=== PATIENT | male | born 1955 | race Caucasian/White ===

== ENCOUNTER 2017-12-15 20:35 | Inpatient (IN) | payer BC, OTHER ==
[~2017-12-15] VITALS: Ht 185.4 cm; Wt 115.0 kg
[~2017-12-15 20:35] MED LIST: ANTI25TA2 PO; CHOLESTEROL MED; METO100T9 PO; ST JTAB PO
[2017-12-15 20:38] VITALS: BP 167/80; PULSE 89; RESP 18; TEMP 100.2; O2SAT 94
--- NOTE | 2017-12-15 21:12 | PD ---
HPI Chief Complaint: Fever Time Seen by Provider: 20:53 Travel History International Travel<30 days: No Contact w/Intl Traveler<30days: No Traveled to known affect area: No History of Present Illness HPI 62-year-old male complains of fever, sore throat, productive cough, dysuria, right flank pain . Patient states that the sore throat started about 10 days ago. Patient started having fever intermittent since then. Patient states that he started having productive cough and chest wall pain with coughing for the past few days. Patient states that he vomited today. Patient also states that he has dysuria for the past 10 days. Patient states that he has persistent right flank pain right upper quadrant abdominal pain for the past 10 days. Patient has history kidney stone in the past. Patient denies any abdominal surgery in the past. Patient has history of hypertension and diabetes. Patient is a non-smoker. PFSH Past Medical History Cardiovascular Problems: Yes ([place]) High Cholesterol: Yes Hypertension: Yes Kidney Stones: Yes ?: Not Past Surgical History Other Surgery: Yes (KIDNEY STONE) Social History Alcohol Use: Yes (RARE) Tobacco Use: Yes (RARE) Substance Use: No Allergies-Medications (Allergen,Severity, Reaction): Coded Allergies: penicillin G (Unverified Adverse Reaction, Mild, RASH, 12/15/17) Reported Meds & Prescriptions Reported Meds & Active Scripts Active Reported Simvastatin 40 Mg Tab 40 Mg PO DAILY Metoprolol Tartrate 100 Mg Tab 100 Mg PO BID Hydrochlorothiazide 25 Mg Tab 25 Mg PO DAILY Meclizine (Meclizine HCl) 25 Mg Tab 25 Mg PO TID PRN Metformin (Metformin HCl) 500 Mg Tab 500 Mg PO TIDPC Farxiga (Dapagliflozin) 5 Mg Tab 5 Mg PO DAILY Review of Systems General / Constitutional: No: Fever Eyes: No: Visual changes HENT: Positive: Sore Throat, No: Headaches Cardiovascular: No: Chest Pain or Discomfort Respiratory: Positive: Cough, No: Shortness of Breath Gastrointestinal: Positive: Vomiting, Abdominal Pain Genitourinary: Positive: Dysuria Musculoskeletal: No: Pain Skin: No Rash Neurologic: No: Weakness Psychiatric: No: Depression Endocrine: No: Polydipsia Hematologic/Lymphatic: No: Easy Bruising Physical Exam Narrative GENERAL: Well-nourished, well-developed patient. SKIN: Focused skin assessment warm/dry. HEAD: Normocephalic. EYES: No scleral icterus. No injection or drainage. NECK: Supple, trachea midline. No JVD or lymphadenopathy. CARDIOVASCULAR: Regular rate and rhythm without murmurs, gallops, or rubs. RESPIRATORY: Breath sounds equal bilaterally. No accessory muscle use. GASTROINTESTINAL: Abdomen soft, nondistended. Patient has moderate tenderness on palpation right flank area and right mid abdomen area. No rebound tenderness. No mass. MUSCULOSKELETAL: No cyanosis, or edema. BACK: Nontender without obvious deformity. No CVA tenderness. Neurologic exam normal. Data Data Last Documented VS Vital Signs Date Time Temp Pulse Resp B/P (MAP) Pulse Ox O2 Delivery O2 Flow Rate FiO2 12/15/17 21:40 80 16 122/64 (83) 94 Room Air 12/15/17 20:38 100.2 Orders Orders Complete Blood Count With Diff (12/15/17 21:00) Comprehensive Metabolic Panel (12/15/17 21:00) Prothrombin Time / Inr (Pt) (12/15/17:00) Act Partial Throm Time (Ptt) (12/15/17:00) Urinalysis - C+S If Indicated (12/15/17 21:00) Influenzae A/B Antigen (12/15/17 21:00) Chest, Single Ap (12/15/17:00) Ct Abd/Pel W/O Iv Contrast (12/15/17 21:00) Iv Access Insert/Monitor (12/15/17 21:00) Ecg Monitoring (12/15/17 21:00) Oximetry (12/15/17 21:00) Sodium Chlor 0.9% 1000 Ml Inj (Ns 1000 M (12/15/17 21:15) Ketorolac Inj (Toradol Inj) (12/15/17 21:15) Group A Rapid Strep Screen (12/15/17 22:27) Potassium Chloride (Kcl) (12/15/17 23:00) Potassium Chlor 20 Meq Premix (Kcl 20 Me (12/15/17 23:00) Strep Culture (Group A) (12/15/17 22:25) Ceftriaxone Inj (Rocephin Inj) (12/16/17 00:15) Azithromycin Inj (Zithromax Inj) (12/16/17 00:15) Ceftriaxone Inj (Rocephin Inj) (12/16/17 23:00) Bedside Glucose KELSIE.CSUGAR (12/16/17 00:24) Blood Glucose Goal (Criteria) (12/16/17 00:24) Hypoglycemia 70 Mg/Dl Or < (12/16/17 00:24) Notify Dr: Other (12/16/17 00:24) Dextrose 50% In Pernell (Vial) Inj (D50w (Vi (12/16/17 00:30) Glucagon Inj (Glucagon Inj) (12/16/17 00:30) Insulin Aspart Supplemtl Scale (Novolog (12/16/17 08:00) Admit To Inpatient (12/16/17 ) Vital Signs (Adult) Q4H (12/16/17 00:24) Activity Oob Ad Kaley (12/16/17 00:24) Staff Nuclear Weapons Officer / Telemetry .CONTINUOUS (12/16/17 00:24) Intake + Output KELSIE.QSHIFT (12/16/17 00:24) Diet 1800 Ada Cons Carb (12/16/17 Breakfast) Sodium Chlor 0.9% 1000 Ml Inj (Ns 1000 M (12/16/17 00:24) Sodium Chloride 0.9% Flush (Ns Flush) (12/16/17 00:30) Sodium Chloride 0.9% Flush (Ns Flush) (12/16/17 09:00) Ondansetron Inj (Zofran Inj) (12/16/17 00:30) Comprehensive Metabolic Panel (12/17/17 06:00) Complete Blood Count With Diff (12/17/17 06:00) Scd Bilateral/Knee High KELSIE.BID (12/16/17 00:24) Girish Bilateral/Knee High KELSIE.QSHIFT (12/16/17 00:26) Acetaminophen (Tylenol) (12/16/17 00:30) Acetamin-Hydrocod 325-5 Mg ([place] 5-325 (12/16/17 00:30) Acetamin-Hydrocod 325-10 Mg ([place] 10-32 (12/16/17 00:30) Docusate Sodium-Senna (Pratibha-Colace) (12/16/17 09:00) Magnesium Hydroxide Liq (Milk Of Magnesi (12/16/17 00:30) Sennosides (Senokot) (12/16/17 00:30) Bisacodyl Supp (Dulcolax Supp) (12/16/17 00:30) Lactulose Liq (Lactulose Liq) (12/16/17 00:30) Inpatient Certification (12/16/17 ) Metoprolol Tartrate (Lopressor) (12/16/17 09:00) (Nf) Simvastatin (12/16/17 09:00) Admit Order (Ed Use Only) (12/16/17 00:29) Labs Laboratory Tests Test 12/15/17 21:30 12/15/17 21:40 Urine Color YELLOW Urine Turbidity CLEAR Urine pH 5.5 Urine Specific [place] 1.010 Urine Protein 30 mg/dL Urine Glucose (UA) 1000 OR GREATER mg/dL Urine Ketones 15 mg/dL Urine Occult Blood SMALL Urine Nitrite NEG Urine Bilirubin NEG Urine Urobilinogen 0.2 MG/DL Urine Leukocyte Esterase NEG Urine WBC 0-2 /hpf Urine Squamous Epithelial Cells 0-5 /hpf Microscopic Urinalysis Comment CULT NOT INDICATED White Blood Count 24.1 TH/MM3 Red Blood Count 4.70 MIL/MM3 Hemoglobin 14.3 GM/DL Hematocrit 42.1 % Mean Corpuscular Volume 89.6 FL Mean Corpuscular Hemoglobin 30.4 PG Mean Corpuscular Hemoglobin Concent 33.9 % Red Cell Distribution Width 12.1 % Platelet Count 173 TH/MM3 Mean Platelet Volume 10.0 FL Neutrophils (%) (Auto) 84.3 % Lymphocytes (%) (Auto) 7.5 % Monocytes (%) (Auto) 7.0 % Eosinophils (%) (Auto) 0.1 % Basophils (%) (Auto) 1.1 % Neutrophils # (Auto) 20.3 TH/MM3 Lymphocytes # (Auto) 1.8 TH/MM3 Monocytes # (Auto) 1.7 TH/MM3 Eosinophils # (Auto) 0.0 TH/MM3 Basophils # (Auto) 0.3 TH/MM3 CBC Comment DIFF FINAL Differential Comment Prothrombin Time 10.7 SEC Prothromb Time International Ratio 1.1 RATIO Activated Partial Thromboplast Time 25.2 SEC Blood Urea Nitrogen 15 MG/DL Creatinine 1.20 MG/DL Random Glucose 264 MG/DL Total Protein 7.8 GM/DL Albumin 3.5 GM/DL Calcium Level 9.3 MG/DL Alkaline Phosphatase 63 U/L Aspartate Amino Transf (AST/SGOT) 17 U/L Alanine Aminotransferase (ALT/SGPT) 36 U/L Total Bilirubin 1.6 MG/DL Sodium Level 135 MEQ/L Potassium Level 2.7 MEQ/L Chloride Level 100 MEQ/L Carbon Dioxide Level 28.8 MEQ/L Anion Gap 6 MEQ/L Estimat Glomerular Filtration Rate 61 ML/MIN MDM Medical Decision Making Medical Screen Exam Complete: Yes Emergency Medical Condition: Yes Interpretation(s) 21:[address] scan abdomen pelvis shows pyelonephritis versus renal stone passage right kidney. Chest x-ray shows no acute consolidation. UA is positive for glucose. 12:09 AM. CBC WBC 24.1. 84 neutrophil. Potassium 2.7. Sodium 135. GFR 61. Glucose 264. Total bili 1.6. Differential Diagnosis Differential diagnoses including viral syndrome, bronchitis, pneumonia, nephrolithiasis, pyelonephritis, colitis, cholecystitis, UTI. Narrative Course 62-year-old male with sore throat, coughing, right flank pain, dysuria. Normal saline solution 1 L IV bolus. Toradol 30 mg IV. Rocephin 1 g IV. Zithromax 5 mg IV. KCl 40 mEq p.o. given. KCl 20 mEq IV given. Diagnosis Primary Impression: Pyelonephritis Additional Impressions: Bronchitis Hypokalemia Admitting Information Admitting Physician Requests: Admit Jamarcus Toledo MD December 15, 2017 21:12
[2017-12-15] MEDS ORDERED: KETOROLAC TROMETHAMINE 30 MG/ML (IVP) VIAL IV PUSH ONE (21:15)
[2017-12-15] MEDS ORDERED: SODIUM CHLOR 0.9% 1000 ML INJ 1,000 ML IV ONE (21:15)
--- NOTE | 2017-12-15 21:32 | RADRPT ---
EXAM DATE/TIME: 12/15/2017 21:08 [facility] COMPARISON: No previous studies available for comparison. INDICATIONS : Right flank pain. ORAL CONTRAST: No oral contrast ingested. RADIATION DOSE: 26.03 CTDIvol (mGy) ; High dose protocol; Patient body habitus MEDICAL HISTORY : Renal calculi. Hypertension. SURGICAL HISTORY : None. ENCOUNTER: Initial ACUITY: 2 days PAIN SCALE: 7/10 LOCATION: Right flank TECHNIQUE: Volumetric scanning of the abdomen and pelvis was performed. Using automated exposure control and ad justment of the mA and/or kV according to patient size, radiation dose was kept as low as reasonably achievable to obtain optimal diagnostic quality images. DICOM format image data is available electro nically for review and comparison. FINDINGS: No acute findings in the lower, spleen, adrenals or pancreas. No calcified gallstones. Bilateral circumscribed renal lesions are most characteristic of renal cysts. No hydronephrosis or ev idence for obstructive uropathy. There is some stranding around the kidneys bilaterally, but worse on the right side at the lower pole. Cannot exclude inflammatory change, possibly pyelonephritis. No pelvic masses or free fluid. Colonic diverticulosis without diverticulitis. CONCLUSION: 1. Questionable inflammatory or edematous changes around the lower pole right kidney. Differential di agnosis includes pyelonephritis or recent stone passage. No renal calculi or obstructive uropathy. 2. Colonic diverticulosis. Vahid Ballard MD on December 15, 2017 at 21:22 Board Certified Radiologist. This report was verified electronically.
[2017-12-15 21:40] VITALS: BP 122/64; PULSE 80; RESP 16; O2SAT 94
--- NOTE | 2017-12-15 21:42 | RADRPT ---
EXAM DATE/TIME: 12/15/2017 21:27 [facility] COMPARISON: No previous studies available for comparison. INDICATIONS : Cough. MEDICAL HISTORY : Renal calculi. Hypertension SURGICAL HISTORY : None. ENCOUNTER: Initial ACUITY: 1 day PAIN SCORE: 0/10 LOCATION: Bilateral chest FINDINGS: A single view of the chest demonstrates the lungs to be symmetrically aerated without evidence of mas s, infiltrate or effusion. The cardiomediastinal contours are unremarkable. Osseous structures are intact. CONCLUSION: No acute disease. Vahid Ballard MD on December 15, 2017 at 21:39 Board Certified Radiologist. This report was verified electronically.
[2017-12-15 21:48] LABS: BILIRUBIN, URINE NEG (NEG); BLOOD, URINE SMALL (NEG); GLUCOSE,URINE 1000 OR GREATER mg/dL (NEG); KETONE, URINE 15 mg/dL (NEG); NITRITE,URINE NEG (NEG); PH, URINE 5.5 (5.0-8.5); URINE COLOR YELLOW (YELLW/STRAW); URINE LEUKOCYTE ESTERASE NEG (NEG)
[2017-12-15] MEDS ORDERED: METO100T PO (21:57)
[2017-12-15] MEDS ORDERED: HYDR25TA5 PO (21:57)
[2017-12-15] MEDS ORDERED: DAPA1TAB PO (21:57)
[2017-12-15] MEDS ORDERED: MECL-62 PO (21:57)
[2017-12-15] MEDS ORDERED: METF500T PO (21:57)
[2017-12-15] MEDS ORDERED: SIMV40TA PO (21:57)
[2017-12-15 22:01] LABS: AUTOMATED NEUTROPHIL # 20.3 TH/MM3 (1.8-7.7); BASOPHIL # 0.3 TH/MM3 (0-0.2); BASOPHIL % 1.1 % (0.0-2.0); EOSINOPHIL % 0.1 % (0.0-4.0); HEMATOCRIT 42.1 % (39.0-51.0); HEMOGLOBIN 14.3 GM/DL (13.0-17.0); LYMPH % 7.5 % (9.0-44.0); LYMPHOCYTE # 1.8 TH/MM3 (1.0-4.8); MEAN CELL VOLUME 89.6 FL (80.0-100.0); MEAN CORPUSCULAR HEMOGLOBIN 30.4 PG (27.0-34.0); MEAN CORPUSCULAR HGB CONC 33.9 % (32.0-36.0); MONOCYTE # 1.7 TH/MM3 (0-0.9); NEUT % 84.3 % (16.0-70.0); PLATELET COUNT 173 TH/MM3 (150-450); RED CELL DISTRIBUTION WIDTH 12.1 % (11.6-17.2); WHITE BLOOD COUNT 24.1 TH/MM3 (4.0-11.0)
[2017-12-15 22:03] LABS: SQUAMOUS EPITHELIAL CELL URINE 0-5 /hpf (0-5); WBC, URINE 0-2 /hpf (0-5)
[2017-12-15 22:40] VITALS: BP 129/65; PULSE 76; RESP 16; O2SAT 94
[2017-12-15 22:43] LABS: ALBUMIN 3.5 GM/DL (3.4-5.0); ALKALINE PHOSPHATASE 63 U/L (45-117); ALT (GPT) 36 U/L (12-78); AST (GOT) 17 U/L (15-37); BICARBONATE 28.8 MEQ/L (21.0-32.0); BLOOD UREA NITROGEN 15 MG/DL (7-18); CALCIUM 9.3 MG/DL (8.5-10.1); CHLORIDE 100 MEQ/L (98-107); GLOMERULAR FILTRATION RATE 61 ML/MIN (>89); GLUCOSE,RANDOM 264 MG/DL (74-106); SODIUM (NA) 135 MEQ/L (136-145); TOTAL BILIRUBIN ADULT 1.6 MG/DL (0.2-1.0); TOTAL PROTEIN 7.8 GM/DL (6.4-8.2)
[2017-12-15] MEDS ORDERED: POTASSIUM CHLORIDE 20 MEQ CONTROLLED RELEASE TAB PO ONE (23:00)
[2017-12-15] MEDS ORDERED: POTASSIUM CHLOR 20 MEQ PREMIX 100 ML IV ONE (23:00)
[2017-12-15 23:12] LABS: INTERNATIONAL NORMALIZED RATIO 1.1 RATIO; PROTHROMBIN TIME - PATIENT 10.7 SEC (9.8-11.6)
[2017-12-15 23:15] VITALS: BP 121/63; PULSE 78; RESP 16; O2SAT 95
[2017-12-16] VITALS (12 sets, daily range): BP systolic 114–155; BP diastolic 52–98; PULSE 76–130; RESP 14–20; TEMP 98.5–100.7; O2SAT 92–99
[2017-12-16] MEDS ORDERED: AZITHROMYCIN INJ 500 MG in SODIUM CHLOR 0.9% 250 ML INJ 250 ML IV ONE (00:15)
[2017-12-16] MEDS ORDERED: cefTRIAXone INJ 1,000 MG in SODIUM CHLORIDE 0.9% INJ 100 ML IV ONE (00:15)
[2017-12-16] MEDS ORDERED: LACTULOSE SYRUP 20 GM/30 ML CUP PO PRN (00:30)
[2017-12-16] MEDS ORDERED: GLUCAGON 1 MG/ML VIAL OTHER PRN (00:30)
[2017-12-16] MEDS ORDERED: MAGNESIUM HYDROXIDE SUSP 30 ML CUP PO PRN (00:30)
[2017-12-16] MEDS ORDERED: SENNOSIDES 8.6 MG TAB PO PRN (00:30)
[2017-12-16] MEDS ORDERED: BISACODYL 10 MG SUPP RECTAL PRN (00:30)
[2017-12-16] MEDS ORDERED: ACETAMINOPHEN/HYDROcodone 325 MG/10 MG TAB PO PRN (00:30)
[2017-12-16] MEDS ORDERED: ONDANSETRON HCL 4 MG/2 ML VIAL IVP PRN (00:30)
[2017-12-16] MEDS ORDERED: SODIUM CHLORIDE 0.9% FLUSH 10 ML FLUSH IV FLUSH PRN (00:30)
[2017-12-16] MEDS ORDERED: DEXTROSE 50% IN WATER 50 ML VIAL(D50) IV PUSH PRN (00:30)
[2017-12-16] MEDS ORDERED: ACETAMINOPHEN 325 MG TAB PO PRN (00:30)
[2017-12-16] MEDS: SODIUM CHLOR 0.9% 1000 ML INJ 1,000 ML IV SCH ×3 (03:03→16:15)
[2017-12-16] MEDS ORDERED: METOPROLOL TARTRATE 100 MG TAB PO SCH ×3 (06:08→09:00)
[2017-12-16] MEDS: METOPROLOL TARTRATE 100 MG TAB PO SCH ×2 (06:41→17:24)
--- NOTE | 2017-12-16 07:57 | HHI.HP ---
[facility] Michael Swift MD Admission Diagnosis Right pyelonephritis. Bronchitis. Hypokalemia. Diagnoses: Travel History International Travel<30 Days: No Contact w/Intl Traveler <30 Da: No Traveled to Known Affected Are: No Sepsis Criteria SIRS Criteria (2 or more): Heart rate over 90, WBC > 10788, < 4000 or > 10% bands Sepsis Criteria (SIRS+source): Infect source susp/known History of Present Illness 62 year old male with DM, CAD, HLD, HTN, and history of nephrolithiasis presented to the ER for evaluation of sore throat, cough, and right flank pain. He states the sore throat and productive cough started about ten days ago and since then he has also had daily fevers and chills with Tmax 104 orally at home. Coughing is now associated with right chest wall pain but he denies any difficulty breathing or wheezing. He recently went on a cruise about two weeks ago and states there were many people on board with respiratory symptoms. As far as his right flank pain, he states it was associated with dysuria and hematuria but his symptoms completely resolved three days ago; he believes he may have passed a stone. He states he has had eight episodes of stones in the past some requiring extraction. His urologist is Dr. Sands. Other associated symptoms include abdominal pain from coughing, heart racing, diminished appetite, and one episode of vomiting yesterday. He reports from time to time he feels his heart racing and gets a little lightheaded and feels like he has to lay down. He follows with Dr. Hartley and his last stress test was about eight years ago. He has had a heart attack in the past but no cardiac intervention such as stents or bypass. He has never been diagnosed with atrial fibrillation. Review of Systems Constitutional: COMPLAINS OF: Fever, Chills, Change in appetite, DENIES: Dizziness Eyes: DENIES: Blurred vision Ears, nose, mouth, throat: COMPLAINS OF: Throat pain, DENIES: Nasal discharge, Oral lesions, Hoarseness, Ear Pain, Running Nose, Sinus Pain Respiratory: COMPLAINS OF: Cough, Sputum production, DENIES: Wheezing, Hemoptysis, Shortness of breath Cardiovascular: COMPLAINS OF: Chest pain, Palpitations, DENIES: Syncope, Lower Extremity Edema Gastrointestinal: COMPLAINS OF: Abdominal pain, Vomiting, DENIES: Black stools , Bloody stools, Diarrhea, Nausea Genitourinary: COMPLAINS OF: Hematuria, Dysuria Musculoskeletal: DENIES: Joint pain, Muscle aches Integumentary: DENIES: Rash Neurologic: DENIES: Headache Psychiatric: DENIES: Anxiety Past Family Social History Past Medical History Hypertension Hyperlipidemia Coronary artery disease Diabetes mellitus Nephrolithiasis Osteoarthritis Past Surgical History R knee arthroscopy Reported Medications Simvastatin 40 Mg Tab 40 Mg PO DAILY Metoprolol Tartrate 100 Mg Tab 100 Mg PO BID Hydrochlorothiazide 25 Mg Tab 25 Mg PO DAILY Meclizine (Meclizine HCl) 25 Mg Tab 25 Mg PO TID PRN Metformin (Metformin HCl) 500 Mg Tab 500 Mg PO TIDPC Farxiga (Dapagliflozin) 5 Mg Tab 5 Mg PO DAILY Allergies: Coded Allergies: penicillin G (Unverified Adverse Reaction, Mild, RASH, 12/15/17) Active Ordered Medications Acetaminophen (Tylenol) 650 mg Q6H PRN PO; Start 12/16/17 at 00:30 Acetaminophen/ Hydrocodone Bitart (Altha 5-325 Mg) 1 tab Q4H PRN PO; Start 12/16/17 at 00:30 Acetaminophen/ Hydrocodone Bitart (Altha 10-325 Mg) 1 tab Q4H PRN PO; Start 12/16/17 at 00:30 Azithromycin 500 mg/Sodium Chloride 250 ml @ 250 mls/hr ONCE ONCE IV Last administered on 12/16/17at 01:56; Admin Dose 250 MLS/HR; Start 12/16/17 at 00:15; Stop 12/16/17 at 01:14; Status DC Bisacodyl (Dulcolax Supp) 10 mg DAILY PRN RECTAL; Start 12/16/17 at 00:30 Ceftriaxone Sodium 1000 mg/ Sodium Chloride 100 ml @ 200 mls/hr ONCE ONCE IV Last administered on 12/16/17at 01:17; Admin Dose 200 MLS/HR; Start 12/16/17 at 00: 15; Stop 12/16/17 at 00:44; Status DC Ceftriaxone Sodium 1000 mg/ Sodium Chloride 100 ml @ 200 mls/hr Q24H IV; Start 12/16/17 at 23:00 Dextrose (D50w (Vial) Inj) 50 ml UNSCH PRN IV PUSH; Start 12/16/17 at 00:30 Glucagon (Glucagon Inj) 1 mg UNSCH PRN OTHER; Start 12/16/17 at 00:30 Insulin Aspart (NovoLOG SUPPLEMENTAL SCALE) 1 ACHS SLIDING SCALE SQ; Start 12/16 at 08:00 Ketorolac Tromethamine (Toradol Inj) 30 mg ONCE ONCE IV PUSH Last administered on 12/15/17at 22:03; Admin Dose 30 MG; Start 12/15/17 at 21:15; Stop 12/15/17 at 21: 16; Status DC Lactulose (Lactulose Liq) 30 ml DAILY PRN PO; Start 12/16/17 at 00:30 Magnesium Hydroxide (Milk Of Magnesia Liq) 30 ml Q12H PRN PO; Start 12/16/17 at 00:30 Metoprolol Tartrate (Lopressor) 100 mg BID PO; Start 12/16/17 at 09:00; Stop 12/16 at 09:00; Status DC Metoprolol Tartrate (Lopressor) 100 mg BID PO; Start 12/16/17 at 09:00; Stop 12/16 at 09:00; Status DC Metoprolol Tartrate (Lopressor) 100 mg BID@0600,1800 PO; Start 12/16/17 at 06:08 ; Stop 12/16/17 at 06:20; Status DC Metoprolol Tartrate (Lopressor) 100 mg Q12H PO Last administered on 12/16/17at 06: 41; Admin Dose 100 MG; Start 12/16/17 at 06:30 Ondansetron HCl (Zofran Inj) 4 mg Q6H PRN IVP; Start 12/16/17 at 00:30 Potassium Chloride 100 ml @ 50 mls/hr BOLUS ONCE IV Last administered on at 22:58; Admin Dose 50 MLS/HR; Start 12/15/17 at 23:00; Stop 12/16/17 at 00:59 ; Status DC Potassium Chloride (KCl) 40 meq ONCE ONCE PO Last administered on 12/15/17at 22: 57; Admin Dose 40 MEQ; Start 12/15/17 at 23:00; Stop 12/15/17 at 23:01; Status DC Pravastatin Sodium (Pravachol) 80 mg DAILY PO; Start 12/16/17 at 09:00 Senna/Docusate Sodium (Pratibha-Colace) 1 tab BID PO; Start 12/16/17 at 09:00 Sennosides (Senokot) 17.2 mg Q12H PRN PO; Start 12/16/17 at 00:30 Sodium Chloride 1,000 ml @ 100 mls/hr Q10H IV Last administered on 12/16/17at 03: 03; Admin Dose 100 MLS/HR; Start 12/16/17 at 01:00 Sodium Chloride 1,000 ml @ 999 mls/hr BOLUS ONCE IV Last administered on at 22:01; Admin Dose 999 MLS/HR; Start 12/15/17 at 21:15; Stop 12/15/17 at 22:15 ; Status DC Sodium Chloride (NS Flush) 2 ml BID IV FLUSH; Start 12/16/17 at 09:00 Sodium Chloride (NS Flush) 2 ml UNSCH PRN IV FLUSH; Start 12/16/17 at 00:30 Family History Noncontributory Social History Lives with his 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 EtOH: denies regular use Tobacco: rare cigar but otherwise denies any history of cigarette smoking Illicit drugs: denies Physical Exam Vital Signs Vital Signs Date Time Temp Pulse Resp B/P (MAP) Pulse Ox O2 Delivery O2 Flow Rate FiO2 12/16/17 05:39 99.3 130 14 143/81 (101) 99 Room Air 12/16/17 04:26 Room Air 12/16/17 02:45 99.9 94 16 144/82 (102) 95 Room Air 12/16/17 02:15 90 16 136/84 (101) 95 Room Air 12/16/17 01:15 99.7 81 16 135/77 (96) 94 Room Air 12/16/17 01:00 81 16 94 Room Air 12/16/17 00:15 76 16 116/52 (73) 93 Room Air 12/15/17 23:30 16 12/15/17 23:15 78 16 121/63 (82) 95 Room Air 12/15/17 22:40 76 16 129/65 (86) 94 Room Air 12/15/17 21:40 80 16 122/64 (83) 94 Room Air 12/15/17 21:40 16 94 Room Air 12/15/17 21:10 80 16 94 Room Air 12/15/17 20:38 100.2 89 18 167/80 (109) 94 Physical Exam GENERAL: Well-nourished, well-developed obese male laying comfortably in bed in no apparent distress. SKIN: No rashes, ecchymoses or lesions. Cool and dry. HEAD: Atraumatic. Normocephalic. No temporal or scalp tenderness. Pupils equal round and reactive. Extraocular motions intact. No scleral icterus. No injection or drainage. Nose without bleeding, purulent drainage or septal hematoma. Throat without erythema, tonsillar hypertrophy or exudate. Uvula midline. Airway patent. NECK: Trachea midline. No lymphadenopathy. Supple, nontender, no meningeal signs. CARDIOVASCULAR: Tachycardic with a regular rhythm. No appreciable murmurs, rubs , or gallops. 2+ pedal pulses. RESPIRATORY: Clear to auscultation. Breath sounds equal bilaterally. No wheezes , rales, or rhonchi. GASTROINTESTINAL: Positive bowel sounds in all four quadrants. Abdomen soft, nontender, nondistended. No hepatosplenomegaly or palpable masses. No guarding. MUSCULOSKELETAL: Extremities without clubbing, cyanosis, or edema. No joint tenderness, effusion, or edema noted. No calf tenderness. Negative Homans sign bilaterally. NEUROLOGICAL: Awake and alert. Motor and sensory grossly within normal limits. Normal speech. Laboratory Laboratory Tests Test 12/15/17 21:30 12/15/17 21:40 Urine Color YELLOW Urine Turbidity CLEAR Urine pH 5.5 Urine Specific [place] 1.010 Urine Protein 30 Urine Glucose (UA) 1000 OR GREATER Urine Ketones 15 Urine Occult Blood SMALL Urine Nitrite NEG Urine Bilirubin NEG Urine Urobilinogen 0.2 Urine Leukocyte Esterase NEG Urine WBC 0-2 Urine Squamous Epithelial Cells 0-5 Microscopic Urinalysis Comment CULT NOT INDICATED White Blood Count 24.1 Red Blood Count 4.70 Hemoglobin 14.3 Hematocrit 42.1 Mean Corpuscular Volume 89.6 Mean Corpuscular Hemoglobin 30.4 Mean Corpuscular Hemoglobin Concent 33.9 Red Cell Distribution Width 12.1 Platelet Count 173 Mean Platelet Volume 10.0 Neutrophils (%) (Auto) 84.3 Lymphocytes (%) (Auto) 7.5 Monocytes (%) (Auto) 7.0 Eosinophils (%) (Auto) 0.1 Basophils (%) (Auto) 1.1 Neutrophils # (Auto) 20.3 Lymphocytes # (Auto) 1.8 Monocytes # (Auto) 1.7 Eosinophils # (Auto) 0.0 Basophils # (Auto) 0.3 CBC Comment DIFF FINAL Differential Comment Prothrombin Time 10.7 Prothromb Time International Ratio 1.1 Activated Partial Thromboplast Time 25.2 Blood Urea Nitrogen 15 Creatinine 1.20 Random Glucose 264 Total Protein 7.8 Albumin 3.5 Calcium Level 9.3 Alkaline Phosphatase 63 Aspartate Amino Transf (AST/SGOT) 17 Alanine Aminotransferase (ALT/SGPT) 36 Total Bilirubin 1.6 Sodium Level 135 Potassium Level 2.7 Chloride Level 100 Carbon Dioxide Level 28.8 Anion Gap 6 Estimat Glomerular Filtration Rate 61 Date/Time Source Procedure Growth Status 12/15/17 22:25 Throat Group A Streptococcus Screen Pending Received Result Diagram: 12/15/17213912/15/[id number] Imaging Chest X-Ray 12/15/172099 Signed Impressions: Service Date/Time: Friday, December 15, 2017 21:27 - CONCLUSION: No acute disease. Vahid Ballard MD Abdomen/Pelvis CT 12/15/172099 Signed Impressions: Service Date/Time: Friday, December 15, 2017 21:08 - CONCLUSION: 1. Questionable inflammatory or edematous changes around the lower pole right kidney. Differential diagnosis includes pyelonephritis or recent stone passage. No renal calculi or obstructive uropathy. 2. Colonic diverticulosis. Vahid Ballard MD Septic Shock Reassessment Septic shock perfusion: reassessment completed Caprini VTE Risk Assessment Caprini VTE Risk Assessment: Mod/High Risk (score >= 2) Caprini Risk Assessment Model Point Value = 1 Point Value = 2 Point Value = 3 Point Value = 5 Age 41-60 Minor surgery BMI > 25 kg/m2 Swollen legs Varicose veins or History of unexplained or recurrent spontaneous Oral contraceptives or hormone replacement Sepsis (< 1 month) Serious lung disease, including pneumonia (< 1 month) Abnormal pulmonary function Acute myocardial infarction Congestive heart failure (< 1 month) History of inflammatory bowel disease Medical patient at bed rest Age 61-74 Arthroscopic surgery Major open surgery (> 45 min) Laparoscopic surgery (> 45 min) Malignancy Confined to bed (> 72 hours) Immobilizing plaster cast Central venous access Age >= 75 History of VTE Family history of VTE Factor V Leiden Prothrombin 20072G Lupus anticoagulant Anticardiolipin antibodies Elevated serum homocysteine Heparin-induced thrombocytopenia Other congenital or acquired thrombophilia Stroke (< 1 month) Elective arthroplasty Hip, pelvis, or leg fracture Acute spinal cord injury (< 1 month) Prophylaxis Regimen Total Risk Factor Score Risk Level Prophylaxis Regimen 0-1 Low Early ambulation 2 Moderate Order ONE of the following: *Sequential Compression Device (SCD) *Heparin 5000 units SQ BID 3-4 Higher Order ONE of the following medications: *Heparin 5000 units SQ TID *Enoxaparin/Lovenox 40 mg SQ daily (WT < 150 kg, CrCl > 30 mL/min) *Enoxaparin/Lovenox 30 mg SQ daily (WT < 150 kg, CrCl > 10-29 mL/min) *Enoxaparin/Lovenox 30 mg SQ BID (WT < 150 kg, CrCl > 30 mL/min) AND/OR *Sequential Compression Device (SCD) 5 or more Highest Order ONE of the following medications: *Heparin 5000 units SQ TID (Preferred with Epidurals) *Enoxaparin/Lovenox 40 mg SQ daily (WT < 150 kg, CrCl > 30 mL/min) *Enoxaparin/Lovenox 30 mg SQ daily (WT < 150 kg, CrCl > 10-29 mL/min) *Enoxaparin/Lovenox 30 mg SQ BID (WT < 150 kg, CrCl > 30 mL/min) AND *Sequential Compression Device (SCD) Assessment and Plan Assessment and Plan 62 YOWM with DM, CAD, HTN, and nephrolithiasis presenting with persistent cough , congestion, and fever x 10 days. 1. Sepsis - Not initially meeting septic criteria on admission but overnight HR>100 and with WBC 24.1 and source of infection (respiratory) he now meets sepsis criteria - Temp borderline at 100.2 on admission - Check lactic acid, blood cultures, and urine culture since reflex not done with U/A on admission - Influenza and rapid strep negative - Bolused 1L NS x 1 in the ED and started on Rocephin and Azithromycin which will be continued - Tylenol PRN fever 2. Bronchitis - Initial CXR negative and lung exam reassuring - Check respiratory panel - Recheck CXR if no improvement in symptoms or concerns for developing PNA - DuoNeb PRN - Supplemental O2 PRN - Continue Rocephin and Azithromycin 3. R flank pain, RESOLVED - U/A with negative nitrites and leukocyte esterase, notable for glucose, protein, and small blood - CT A/P with questionable inflammatory or edematous changes around the lower pole of the R kidney concerning for pyelo vs. recent stone passage - Pt does have a history of kidney stones and it's likely he recently passed a stone - Check urine culture - Altha PRN 4. Hypokalemia - Potassium noted to be 2.7 on admission, provided with KCl IV and PO - Recheck this morning and also check magnesium 5. Diabetes mellitus - Hyperglycemic on admission with glucosuria, normal anion gap - Hold home PO meds and place on SSI per protocol 6. Hypertension - Holding home HCTZ for now given hypokalemia - Continue metoprolol - Hydralazine PRN 7. Coronary artery disease - Continue BB and statin - Check troponin x 1 given chest pain (though likely attributable to cough) and monitor on telemetry FEN: - NS at 100 ml/hr - Monitor and replete electrolytes PRN - Diabetic diet DVT prophylaxis: Lovenox Code Status FULL Discussed Condition With The patient Physician Certification 2 Midnight Certification Type: Admission for Inpatient Services Order for Inpatient Services The services are ordered in accordance with Medicare regulations or non- Medicare payer requirements, as applicable. In the case of services not specified as inpatient-only, they are appropriately provided as inpatient services in accordance with the 2-midnight benchmark. Estimated LOS (days): 2 2 days is the estimated time the patient will need to remain in the hospital, assuming treatment plan goals are met and no additional complications. Post-Hospital Plan: Home Kelly Bradford MD December 16, 2017 07:57
[2017-12-16] MEDS ORDERED: RESP: ALBUTEROL 2.5 MG/IPRATROPIUM 0.5 MG NEB (PRN) NEB (08:45)
[2017-12-16 08:48] LABS: AUTOMATED NEUTROPHIL # 10.2 TH/MM3 (1.8-7.7); BASOPHIL # 0.1 TH/MM3 (0-0.2); BASOPHIL % 0.5 % (0.0-2.0); HEMATOCRIT 41.2 % (39.0-51.0); HEMOGLOBIN 13.6 GM/DL (13.0-17.0); LYMPH % 8.5 % (9.0-44.0); LYMPHOCYTE # 1.1 TH/MM3 (1.0-4.8); MEAN CELL VOLUME 90.2 FL (80.0-100.0); MEAN CORPUSCULAR HEMOGLOBIN 29.7 PG (27.0-34.0); MEAN CORPUSCULAR HGB CONC 32.9 % (32.0-36.0); MEAN PLATELET VOLUME 9.9 FL (7.0-11.0); MONO % 8.1 % (0.0-8.0); NEUT % 82.9 % (16.0-70.0); PLATELET COUNT 143 TH/MM3 (150-450); RED BLOOD COUNT 4.57 MIL/MM3 (4.50-5.90); RED CELL DISTRIBUTION WIDTH 12.1 % (11.6-17.2); WHITE BLOOD COUNT 12.4 TH/MM3 (4.0-11.0)
[2017-12-16] MEDS: DOCUSATE SODIUM 50 MG/SENNA 8.6 MG TAB PO SCH ×2 (09:19→20:51)
[2017-12-16] MEDS: SODIUM CHLORIDE 0.9% FLUSH 10 ML FLUSH IV FLUSH SCH ×2 (09:19→20:51)
[2017-12-16] MEDS: ENOXAPARIN SODIUM 40 MG/0.4 ML SYRINGE SQ SCH (09:34)
[2017-12-16] MEDS: PRAVASTATIN SOD 80 MG TAB PO SCH (09:34)
[2017-12-16] MEDS: INSULIN ASPART SUPPLEMENTAL SCALE SQ SCH ×4 (09:35→20:52)
[2017-12-16 09:57] LABS: ALBUMIN 2.9 GM/DL (3.4-5.0); ALKALINE PHOSPHATASE 56 U/L (45-117); ALT (GPT) 31 U/L (12-78); AST (GOT) 17 U/L (15-37); BICARBONATE 23.1 MEQ/L (21.0-32.0); BLOOD UREA NITROGEN 12 MG/DL (7-18); CALCIUM 8.6 MG/DL (8.5-10.1); CHLORIDE 103 MEQ/L (98-107); CREATININE 0.87 MG/DL (0.60-1.30); GLOMERULAR FILTRATION RATE 89 ML/MIN (>89); GLUCOSE,RANDOM 208 MG/DL (74-106); SODIUM (NA) 137 MEQ/L (136-145); TOTAL BILIRUBIN ADULT 1.5 MG/DL (0.2-1.0); TOTAL PROTEIN 7.1 GM/DL (6.4-8.2)
[2017-12-16] MEDS ORDERED: POTASSIUM CHLORIDE 10 MEQ CONTROLLED RELEASE TAB PO ONE (10:15)
[2017-12-16] MEDS ORDERED: POTASSIUM CHLOR 20 MEQ PREMIX 100 ML IV ONE (10:15)
[2017-12-16] MEDS: AZITHROMYCIN 250 MG TAB PO SCH (17:25)
[2017-12-16] MEDS ORDERED: POTASSIUM CHLORIDE 25 MEQ EFFERVESCENT TAB PO ONE (19:45)
[2017-12-16] MEDS: POTASSIUM CHLOR 20 MEQ PREMIX 100 ML IV SCH ×2 (20:50→23:15)
[2017-12-16] MEDS: cefTRIAXone INJ 1,000 MG in SODIUM CHLORIDE 0.9% INJ 100 ML IV SCH (23:16)
[2017-12-17] VITALS (8 sets, daily range): BP systolic 128–167; BP diastolic 66–91; PULSE 70–85; RESP 18–20; TEMP 98–99.3; O2SAT 94–96
[2017-12-17] MEDS: SODIUM CHLOR 0.9% 1000 ML INJ 1,000 ML IV SCH ×3 (00:27→21:17)
[2017-12-17] MEDS: METOPROLOL TARTRATE 100 MG TAB PO SCH ×2 (06:21→17:12)
[2017-12-17] MEDS: DOCUSATE SODIUM 50 MG/SENNA 8.6 MG TAB PO SCH ×2 (08:16→21:00)
[2017-12-17] MEDS: PRAVASTATIN SOD 80 MG TAB PO SCH (08:17)
[2017-12-17] MEDS: SODIUM CHLORIDE 0.9% FLUSH 10 ML FLUSH IV FLUSH SCH ×2 (08:17→21:12)
[2017-12-17] MEDS: ENOXAPARIN SODIUM 40 MG/0.4 ML SYRINGE SQ SCH (08:17)
[2017-12-17] MEDS: INSULIN ASPART SUPPLEMENTAL SCALE SQ SCH ×4 (08:18→21:00)
[2017-12-17 08:33] LABS: AUTOMATED NEUTROPHIL # 7.3 TH/MM3 (1.8-7.7); BASOPHIL % 0.3 % (0.0-2.0); EOSINOPHIL # 0.1 TH/MM3 (0-0.4); EOSINOPHIL % 0.7 % (0.0-4.0); HEMATOCRIT 40.5 % (39.0-51.0); HEMOGLOBIN 13.2 GM/DL (13.0-17.0); LYMPH % 17.3 % (9.0-44.0); LYMPHOCYTE # 1.7 TH/MM3 (1.0-4.8); MEAN CELL VOLUME 92.2 FL (80.0-100.0); MEAN CORPUSCULAR HEMOGLOBIN 30.2 PG (27.0-34.0); MEAN CORPUSCULAR HGB CONC 32.7 % (32.0-36.0); MEAN PLATELET VOLUME 10.1 FL (7.0-11.0); MONO % 9.2 % (0.0-8.0); MONOCYTE # 0.9 TH/MM3 (0-0.9); NEUT % 72.5 % (16.0-70.0); PLATELET COUNT 159 TH/MM3 (150-450); RED BLOOD COUNT 4.39 MIL/MM3 (4.50-5.90); RED CELL DISTRIBUTION WIDTH 12.1 % (11.6-17.2)
[2017-12-17 08:37] LABS: CHLORIDE 107 MEQ/L (98-107); SODIUM (NA) 142 MEQ/L (136-145)
[2017-12-17 08:44] LABS: ALBUMIN 2.7 GM/DL (3.4-5.0); CALCIUM 8.3 MG/DL (8.5-10.1)
[2017-12-17 08:45] LABS: BICARBONATE 26.5 MEQ/L (21.0-32.0); BLOOD UREA NITROGEN 13 MG/DL (7-18); GLUCOSE,RANDOM 173 MG/DL (74-106)
[2017-12-17 08:48] LABS: ALT (GPT) 33 U/L (12-78); AST (GOT) 24 U/L (15-37); CREATININE 0.76 MG/DL (0.60-1.30); GLOMERULAR FILTRATION RATE 104 ML/MIN (>89)
[2017-12-17 08:49] LABS: TOTAL BILIRUBIN ADULT 1.3 MG/DL (0.2-1.0)
[2017-12-17 08:50] LABS: ALKALINE PHOSPHATASE 61 U/L (45-117)
[2017-12-17] MEDS ORDERED: POTASSIUM CHLORIDE 25 MEQ EFFERVESCENT TAB PO ONE (09:30)
[2017-12-17] MEDS: guaiFENesin E.R. 600 MG TAB PO SCH ×2 (10:31→21:12)
[2017-12-17] MEDS: BENZONATATE 100 MG CAP PO PRN ×2 (11:00→21:16)
--- NOTE | 2017-12-17 11:00 | HHI.PR ---
Subjective Remarks The patient states that he has palpitations from time to time. He says he is supposed to get a workup with a hydrochloric manufacturing supervisor. He says he has passed his eighth kidney stone. He has been coughing a lot with some yellow mucus production. He says he always has low potassium levels. Discussed with nursing. Objective Vitals Vital Signs Date Time Temp Pulse Resp B/P (MAP) Pulse Ox O2 Delivery O2 Flow Rate FiO2 12/17/17 07:50 98.8 70 20 146/85 (105) 96 12/17/17 04:00 99.2 77 20 128/66 (86) 96 12/17/17 00:00 99.0 83 18 140/78 (98) 94 12/16/17 20:00 100.7 85 20 147/76 (99) 92 12/16/17 20:00 82 12/16/17 15:55 99.2 77 19 130/60 (83) 96 12/16/17 13:08 80 12/16/17 12:00 98.5 118 20 114/76 (89) 95 I/O 12/16/17 12/16/17 12/16/17 12/17/17 12/17/17 12/17/17 07:00 15:00 23:00 07:00 15:00 23:00 Intake Total 1450 ml 220 ml 1272 ml 480 ml Output Total 600 ml Balance 1450 ml 220 ml 672 ml 480 ml Intake Oral 120 ml 1090 ml 480 ml IV Total 1450 ml 100 ml 182 ml Output Urine Total 600 ml # Voids 2 # Bowel Movements 0 Result Diagram: 12/17/17 0645 12/17/17 0645 Imaging Last Impressions Chest X-Ray 12/15/172099 Signed Impressions: Service Date/Time: Friday, December 15, 2017 21:27 - CONCLUSION: No acute disease. Vahid Ballard MD Abdomen/Pelvis CT 12/15/172099 Signed Impressions: Service Date/Time: Friday, December 15, 2017 21:08 - CONCLUSION: 1. Questionable inflammatory or edematous changes around the lower pole right kidney. Differential diagnosis includes pyelonephritis or recent stone passage. No renal calculi or obstructive uropathy. 2. Colonic diverticulosis. Vahid Ballard MD Objective Remarks GENERAL: Well-nourished, well-developed obese male laying comfortably in bed. SKIN: No rashes, ecchymoses or lesions. Cool and dry. HEAD: Atraumatic. Normocephalic. No temporal or scalp tenderness. Pupils equal round and reactive. Extraocular motions intact. No scleral icterus. No injection or drainage. Nose without bleeding, purulent drainage or septal hematoma. Throat without erythema, tonsillar hypertrophy or exudate. Uvula midline. Airway patent. NECK: Trachea midline. No lymphadenopathy. Supple, nontender, no meningeal signs. CARDIOVASCULAR: Regular rate and rhythm. No appreciable murmurs, rubs, or gallops. RESPIRATORY: Clear to auscultation. Breath sounds equal bilaterally. No wheezes , rales, or rhonchi. GASTROINTESTINAL: Positive bowel sounds in all four quadrants. Abdomen soft, nontender, nondistended. No hepatosplenomegaly or palpable masses. No guarding. MUSCULOSKELETAL: Extremities without clubbing, cyanosis, or edema. No joint tenderness, effusion, or edema noted. NEUROLOGICAL: Awake and alert. Motor and sensory grossly within normal limits. Normal speech. A/P Assessment and Plan Sepsis HR >100 and with WBC 24.1 and source of infection (respiratory/ suspected). - Check blood cultures, and urine culture. - Influenza and rapid strep negative. - Rocephin and azithromycin. Bronchitis Still with cough and mucous production. - Continue Rocephin and Azithromycin. - O2 and nebs as needed. - Tessalon Perles as needed. - encourage ambulation, IS. R flank pain CT A/P with questionable inflammatory or edematous changes around the lower pole of the R kidney concerning for pyelo vs. recent stone passage. - Check urine culture. - continue antibiotics. Coronary artery disease/ Afib Troponin level elevated, likely s/t sepsis. The pt endorses palpitations. Nursing reports telemetry suggested A fib at times. - Continue BB and statin. - trend troponin, monitor on telemetry. - cardiology eval pending. Hypokalemia Potassium noted to be 2.7 on admission, provided with KCl IV and PO. Chronic problem per pt. - Replete and monitor. Diabetes mellitus Hyperglycemic on admission with glucosuria, normal anion gap. - Hold home PO meds and place on SSI per protocol Hypertension Well controlled at this time. - Holding home HCTZ for now given hypokalemia. - Continue metoprolol. - Hydralazine PRN. DVT prophylaxis: Neftali Dior DO December 17, 2017 11:00
[2017-12-17] MEDS: POTASSIUM CHLORIDE 20 MEQ CONTROLLED RELEASE TAB PO SCH ×3 (11:01→21:07)
--- NOTE | 2017-12-17 12:58 | EKG ---
Date Performed: 12/16/2017 Time Performed: 20:16:48 PTAGE: 62 years EKG: Sinus rhythm MODERATE VOLTAGE CRITERIA FOR LVH, CONSIDER NORMAL VARIANT NONSPECIFIC T-WAVE ABNORMALITY BORDERLINE ECG PREVIOUS TRACING : 07/06/2013 14.03 Since prior tracing, sinus rate is faster. DOCTOR: Danny Harper Interpretating Date/Time 12/17/2017 12:58:07
--- NOTE | 2017-12-17 15:52 | MB ---
cc: Danny Hraper MD DATE: 12/17/2017 REASON FOR CONSULTATION: Elevated troponin. HISTORY OF PRESENT ILLNESS: The patient is a very pleasant 62-year-old gentleman who sees my partner, Dr. Hartley, who has a history of palpitations, but no diagnosed arrhythmia, as well as possible coronary artery disease (though apparently no intervention was performed). The patient was admitted for infectious symptoms, including a fever of 104 at home. As part of the initial workup, troponins were drawn which were elevated and thus I was consulted. He denies any chest pain, but just noted sore throat, cough, dysuria and flank pain. No true shortness of breath. PAST MEDICAL HISTORY: 1. Possible coronary artery disease, though with no intervention. 2. Hypertension. 3. Hyperlipidemia. 4. Diabetes. 5. Osteoarthritis. 6. Nephrolithiasis. 7. Obesity. CURRENT MEDICATIONS: 1. Potassium 40 mEq p.o. q.4 hours. 2. Guaifenesin. 3. Tessalon. 4. Zithromax 5. Pravachol 80 mg daily. 6. Lovenox 40 mg subq q.24 hours. ALLERGIES: PENICILLIN. PHYSICAL EXAMINATION: VITAL SIGNS: Afebrile, pulse 85, respiratory rate 20, blood pressure 155/88, sating 95% on room air. GENERAL: Pleasant gentleman in no distress. NECK: No JVD. LUNGS: Clear to auscultation bilaterally. HEART: Regular rate and rhythm. No murmurs appreciated. ABDOMEN: Benign. EXTREMITIES: No edema. DIAGNOSTIC STUDIES: Laboratory data: Sodium 142, potassium 3.1, up from 2.7; chloride 107, bicarbonate 26.5, BUN 13, creatinine 0.76. Troponins are 0.12, 0.34, 0.14. Chest x-ray showed no acute disease. Telemetry shows sinus rhythm with occasional brief atrial runs, but no sustained dysrhythmia. EKG shows sinus rhythm with PACs and no acute ST or T-wave changes. IMPRESSION AND RECOMMENDATIONS: 1. Elevated troponin. The patient's minimally elevated troponin in the setting of likely sepsis is nonspecific, especially without any chest pain. Likely this is demand related and not acute coronary syndrome. I think a stress test is reasonable, given he has had one in many years, but would only intervene if major ischemia was seen, otherwise would medically treat at this time. 2. Palpitations. The patient does give a good history of paroxysmal atrial fibrillation, but currently he is in sinus rhythm. There are quite a few short atrial runs on the monitoring tech, which does make me suspicious he may have paroxysmal atrial fibrillation that has been undiagnosed. I discussed this with him at length. I would recommend an outpatient long-term monitor or potentially even a loop recorder for diagnosis. Further recommendations will be based on the above, though if his nuclear stress test is nonischemic, I will sign off. Please call with any questions. Thank you again for the opportunity to participate in this patient's care. MD RODOLFO Rodriguez/SALVATORE , 03:37 PM , 03:52 PM
[2017-12-17] MEDS: AZITHROMYCIN 250 MG TAB PO SCH (17:12)
[2017-12-17] MEDS: cefTRIAXone INJ 1,000 MG in SODIUM CHLORIDE 0.9% INJ 100 ML IV SCH (21:18)
[2017-12-17] MEDS ORDERED: ALUMINUM/MAGNESIUM/SIMETH 30 ML CUP PO ONE (22:45)
[2017-12-18] VITALS (7 sets, daily range): BP systolic 135–184; BP diastolic 67–107; PULSE 68–79; RESP 15–20; TEMP 96.9–99.5; O2SAT 95–98
[2017-12-18] MEDS: hydrALAZINE HCL 25 MG TAB PO PRN ×2 (01:58→22:16)
[2017-12-18] MEDS: METOPROLOL TARTRATE 100 MG TAB PO SCH ×2 (05:02→18:23)
[2017-12-18] MEDS: SODIUM CHLORIDE 0.9% FLUSH 10 ML FLUSH IV FLUSH SCH ×2 (08:11→21:17)
[2017-12-18] MEDS: guaiFENesin E.R. 600 MG TAB PO SCH ×2 (08:11→21:15)
[2017-12-18] MEDS: ENOXAPARIN SODIUM 40 MG/0.4 ML SYRINGE SQ SCH (08:11)
[2017-12-18] MEDS: DOCUSATE SODIUM 50 MG/SENNA 8.6 MG TAB PO SCH ×2 (08:11→21:00)
[2017-12-18] MEDS: PRAVASTATIN SOD 80 MG TAB PO SCH (08:11)
[2017-12-18] MEDS: SODIUM CHLOR 0.9% 1000 ML INJ 1,000 ML IV SCH ×2 (08:12→21:21)
[2017-12-18] MEDS: INSULIN ASPART SUPPLEMENTAL SCALE SQ SCH ×4 (08:20→21:00)
[2017-12-18] MEDS ORDERED: REGADENOSON INJ 0.4 MG/5 ML SYR IV ONE (10:04)
--- NOTE | 2017-12-18 10:49 | EKG ---
Date Performed: 12/17/2017 Time Performed: 10:54:41 PTAGE: 62 years EKG: Sinus rhythm WITH OCCASIONAL SUPRAVENTRICULAR PREMATURE COMPLEXES POSSIBLE LEFT VENTRICULAR HYPERTROPHY ABNORMAL ECG Since the PREVIOUS TRACING , no significant change noted PREVIOUS TRACIN12/16/2017 20.16 DOCTOR: Kolby Reina Interpretating Date/Time 12/18/2017 10:47:30
[2017-12-18 11:23] LABS: CHLORIDE 111 MEQ/L (98-107); SODIUM (NA) 143 MEQ/L (136-145)
[2017-12-18 11:25] LABS: CALCIUM 8.7 MG/DL (8.5-10.1)
[2017-12-18 11:26] LABS: ALBUMIN 2.8 GM/DL (3.4-5.0); BICARBONATE 26.1 MEQ/L (21.0-32.0); BLOOD UREA NITROGEN 10 MG/DL (7-18); GLUCOSE,RANDOM 184 MG/DL (74-106)
[2017-12-18 11:29] LABS: ALT (GPT) 60 U/L (12-78); AST (GOT) 41 U/L (15-37); CREATININE 0.65 MG/DL (0.60-1.30); GLOMERULAR FILTRATION RATE 124 ML/MIN (>89)
[2017-12-18 11:30] LABS: TOTAL BILIRUBIN ADULT 1.2 MG/DL (0.2-1.0)
[2017-12-18 11:31] LABS: TOTAL PROTEIN 7.2 GM/DL (6.4-8.2)
[2017-12-18 11:32] LABS: ALKALINE PHOSPHATASE 60 U/L (45-117)
[2017-12-18] MEDS ORDERED: LISINOPRIL 10 MG TAB PO SCH (12:00)
--- NOTE | 2017-12-18 14:51 | HHI.PR ---
Subjective Remarks The pt was resting comfortably. He said he was feeling well. He had no acute complaints. Discussed with nursing. Objective Vitals Vital Signs Date Time Temp Pulse Resp B/P (MAP) Pulse Ox O2 Delivery O2 Flow Rate FiO2 12/18/17 11:55 96.9 73 20 160/87 (111) 95 12/18/17 08:02 98.0 71 20 184/96 (125) 97 12/18/17 08:00 68 12/18/17 04:00 99.2 79 18 172/94 (120) 95 12/18/17 00:00 99.5 79 20 182/95 (124) 96 12/17/17 20:00 99.3 76 20 167/91 (116) 95 12/17/17 20:00 80 12/17/17 17:57 18 12/17/17 15:15 85 12/17/17 15:00 98.6 81 20 154/85 (108) 94 I/O 12/17/17 12/17/17 12/17/17 12/18/17 12/18/17 12/18/17 07:00 15:00 23:00 07:00 15:00 23:00 Intake Total 480 ml 240 ml 1210 ml 480 ml 120 ml Balance 480 ml 240 ml 1210 ml 480 ml 120 ml Intake Oral 480 ml 240 ml 1210 ml 480 ml 120 ml # Voids 2 2 6 4 # Bowel Movements 0 1 2 Result Diagram: 12/17/17 0645 12/18/17 1030 Imaging Last Impressions Chest X-Ray 12/15/17 2100 Signed Impressions: Service Date/Time: Friday, December 15, 2017 21:27 - CONCLUSION: No acute disease. Vhaid Ballard MD Abdomen/Pelvis CT 12/15/17 2100 Signed Impressions: Service Date/Time: Friday, December 15, 2017 21:08 - CONCLUSION: 1. Questionable inflammatory or edematous changes around the lower pole right kidney. Differential diagnosis includes pyelonephritis or recent stone passage. No renal calculi or obstructive uropathy. 2. Colonic diverticulosis. Vahid Ballard MD Objective Remarks GENERAL: Well-nourished, well-developed obese male laying comfortably in bed. SKIN: No rashes, ecchymoses or lesions. Cool and dry. HEAD: Atraumatic. Normocephalic. No temporal or scalp tenderness. Pupils equal round and reactive. Extraocular motions intact. No scleral icterus. No injection or drainage. Nose without bleeding, purulent drainage or septal hematoma. Throat without erythema, tonsillar hypertrophy or exudate. Uvula midline. Airway patent. NECK: Trachea midline. No lymphadenopathy. Supple, nontender, no meningeal signs. CARDIOVASCULAR: Regular rate and rhythm. No appreciable murmurs, rubs, or gallops. RESPIRATORY: Clear to auscultation. Breath sounds equal bilaterally. No wheezes , rales, or rhonchi. GASTROINTESTINAL: Positive bowel sounds in all four quadrants. Abdomen soft, nontender, nondistended. No hepatosplenomegaly or palpable masses. No guarding. MUSCULOSKELETAL: Extremities without clubbing, cyanosis, or edema. No joint tenderness, effusion, or edema noted. NEUROLOGICAL: Awake and alert. Motor and sensory grossly within normal limits. Normal speech. Medications and IVs Current Medications Medications (Trade) Dose Ordered Sig/Juani Route Start Time Stop Time Status Last Admin Ceftriaxone Sodium 1000 mg/ Sodium Chloride 100 ml @ 200 mls/hr Q24H IV 12/16/17 23:00 12/17/17 21:18 (D50w (Vial) Inj) 50 ml UNSCH PRN IV PUSH 12/16/17 00:30 (Glucagon Inj) 1 mg UNSCH PRN OTHER 12/16/17 00:30 (NovoLOG SUPPLEMENTAL SCALE) 1 ACHS SLIDING SCALE SQ 12/16/17 08:00 12/17/17 17:06 Sodium Chloride 1,000 ml @ 100 mls/hr Q10H IV 12/16/17 01:00 12/18/17 08:12 (NS Flush) 2 ml UNSCH PRN IV FLUSH 12/16/17 00:30 (NS Flush) 2 ml BID IV FLUSH 12/16/17 09:00 12/17/17 21:12 (Zofran Inj) 4 mg Q6H PRN IVP 12/16/17 00:30 (Tylenol) 650 mg Q6H PRN PO 12/16/17 00:30 12/16/17 07:46 (Dennis 5-325 Mg) 1 tab Q4H PRN PO 12/16/17 00:30 (Dennis 10-325 Mg) 1 tab Q4H PRN PO 12/16/17 00:30 (Pratibha-Colace) 1 tab BID PO 12/16/17 09:00 12/16/17 20:51 (Milk Of Magnesia Liq) 30 ml Q12H PRN PO 12/16/17 00:30 (Senokot) 17.2 mg Q12H PRN PO 12/16/17 00:30 (Dulcolax Supp) 10 mg DAILY PRN RECTAL 12/16/17 00:30 (Lactulose Liq) 30 ml DAILY PRN PO 12/16/17 00:30 (Pravachol) 80 mg DAILY PO 12/16/17 09:00 12/18/17 08:11 (Lopressor) 100 mg Q12H PO 12/16/17 06:30 12/18/17 05:02 (Zithromax) 500 mg Q24H PO 12/16/17 18:00 12/17/17 17:12 (Lovenox Inj) 40 mg Q24H SQ 12/16/17 09:00 12/18/17 08:11 (Apresoline) 25 mg Q8HR PRN PO 12/16/17 08:00 12/18/17 01:58 (Duoneb Neb) 1 ampule Q4HR NEB PRN NEB 12/16/17 08:45 (Mucinex Er) 1,200 mg BID PO 12/17/17 09:30 12/18/17 08:11 (Tessalon) 200 mg TID PRN PO 12/17/17 09:30 12/17/17 21:16 (Prinivil) 10 mg DAILY PO 12/18/17 12:00 12/18/17 11:34 A/P Assessment and Plan Sepsis HR >100 and with WBC 24.1 and source of infection (respiratory/ suspected). - Check blood cultures, and urine culture. - Influenza and rapid strep negative. - Rocephin and azithromycin. Bronchitis Cough and mucous production improving. - Continue Rocephin and Azithromycin. - O2 and nebs as needed. - Tessalon Perles as needed. - encourage ambulation, IS. R flank pain CT A/P with questionable inflammatory or edematous changes around the lower pole of the R kidney concerning for pyelo vs. recent stone passage. - Check urine culture. NGTD. - continue antibiotics. Coronary artery disease/ Afib Troponin level elevated, likely s/t sepsis. The pt endorses palpitations. Nursing reports telemetry suggested A fib at times. Cardiology consult appreciated. - Continue BB and statin. - telemetry. - stress test pending. - outpt follow-up with cards for rhythm monitoring. Hypokalemia Potassium noted to be 2.7 on admission, provided with KCl IV and PO. Chronic problem per pt. - Replete and monitor. Improved without HCTZ. Diabetes mellitus Hyperglycemic on admission with glucosuria, normal anion gap. - Hold home PO meds and place on SSI per protocol Hypertension Well controlled at this time. - Holding home HCTZ for now given hypokalemia. - Continue metoprolol. Add lisinopril, increase to 20 mg daily. - Hydralazine PRN. DVT prophylaxis: Lovenox Discharge Planning Anticipate d/c home after stress test Neftali Chanel DO December 18, 2017 14:51
[2017-12-18] MEDS: AZITHROMYCIN 250 MG TAB PO SCH (17:00)
[2017-12-18] MEDS: cefTRIAXone INJ 1,000 MG in SODIUM CHLORIDE 0.9% INJ 100 ML IV SCH (21:18)
[2017-12-19] MEDS: METOPROLOL TARTRATE 100 MG TAB PO SCH ×2 (05:32→18:59)
[2017-12-19] MEDS: INSULIN ASPART SUPPLEMENTAL SCALE SQ SCH ×4 (08:00→21:00)
[2017-12-19 08:23] VITALS: BP 167/92; PULSE 67; RESP 19; TEMP 98.2; O2SAT 97
[2017-12-19] MEDS: SODIUM CHLORIDE 0.9% FLUSH 10 ML FLUSH IV FLUSH SCH ×2 (09:00→21:11)
[2017-12-19] MEDS ORDERED: LISINOPRIL 10 MG TAB PO SCH (09:00)
--- NOTE | 2017-12-19 10:13 | RADRPT ---
EXAM DATE/TIME: 12/18/2017 09:52 [place] COMPARISON: No previous studies available for comparison. INDICATIONS : Mid chest pain for two days. Elevated troponins. Unable to walk on treadmill. DOSE: 30.2 mCi Tc99m Myoview at stress. 30.3 mCi Tc99m Myoview at rest. 0.4 mg Lexiscan STRESS SYMPTOMS: Shortness of breath. EJECTION FRACTION: 31% MEDICAL HISTORY : Hypertension. Diabetes mellitus type 2. SURGICAL HISTORY : None. ENCOUNTER: Initial ACUITY: 1 day PAIN SCALE: 3/10 LOCATION: Midsternal chest TECHNIQUE: The patient underwent pharmacologic stress with infusion of prescribed dose. Continuous ECG tracing was monitored during stress. Gated SPECT imaging was performed after stress and conventional SPECT i maging was performed at rest. The examination was performed on a SPECT/CT scanner, both attenuation and non-corrected datasets were reviewed. FINDINGS: DISTRIBUTION: The maximum perfused segment at stress is in the anteroseptal wall. PERFUSION STUDY: The pattern of perfusion at stress show significant redistribution in the lateral, inferolateral and low anteroseptal santos. Fixed diminished perfusion to the low inferior wall with partial redistribut ion in the apex. Scintigraphic findings suggest a dilated cardiomyopathy. GATED STUDY: Diffuse hypokinesis with paradoxical motion in the inferior base. CONCLUSION: 1. Scintigraphic findings suggest significant ischemia in the lateral, inferolateral, low anterosepta l and periapical santos. 2. 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 3. Diffuse hypokinesis with paradoxical motion in the inferior base. Dilated cardiomyopathy with redu sue ejection fraction of 31%. RISK CATEGORY: High (>3% Annual Mortality Rate) Erlin Beaulieu MD on December 19, 2017 at 10:04 Board Certified Radiologist. This report was verified electronically.
[2017-12-19 10:18] LABS: BICARBONATE 26.7 MEQ/L (21.0-32.0); CALCIUM 8.4 MG/DL (8.5-10.1)
[2017-12-19 10:22] LABS: CREATININE 0.66 MG/DL (0.60-1.30)
--- NOTE | 2017-12-19 10:58 | HHI.PR ---
Subjective Remarks The patient really wanted to go home. He was upset that the stress test indicated he should stay for further evaluation. Discussed with family and nursing. Objective Vitals Vital Signs Date Time Temp Pulse Resp B/P (MAP) Pulse Ox O2 Delivery O2 Flow Rate FiO2 12/19/17 08:23 98.2 67 19 167/92 (117) 97 12/18/17 20:00 71 12/18/17 20:00 97.6 73 15 173/107 (129) 98 12/18/17 16:00 98.0 79 20 135/67 (89) 95 12/18/17 11:55 96.9 73 20 160/87 (111) 95 I/O 12/18/17 12/18/17 12/18/17 12/19/17 12/19/17 12/19/17 07:00 15:00 23:00 07:00 15:00 23:00 Intake Total 480 ml 1120 ml 1756 ml 120 ml 120 ml Output Total 1000 ml 300 ml Balance 480 ml 1120 ml 756 ml -180 ml 120 ml Intake Oral 480 ml 120 ml 960 ml 120 ml 120 ml IV Total 1000 ml 796 ml Output Urine Total 1000 ml 300 ml # Voids 4 # Bowel Movements 2 1 Result Diagram: 12/17/17 0645 12/19/17 09 Imaging Last Impressions Myocardial Perfusion Scan Nuc Med 12/18/17 0600 Signed Impressions: Service Date/Time: Monday, December 18, 2017 09:52 - CONCLUSION: 1. Scintigraphic findings suggest significant ischemia in the lateral, inferolateral, low anteroseptal and periapical santos. 2. 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 3. Diffuse hypokinesis with paradoxical motion in the inferior base. Dilated cardiomyopathy with reduced ejection fraction of 31%%. RISK CATEGORY: High (>3%% Annual Mortality Rate) Erlin Beaulieu MD Chest X-Ray 12/15/172099 Signed Impressions: Service Date/Time: Friday, December 15, 2017 21:27 - CONCLUSION: No acute disease. Vahid Ballard MD Abdomen/Pelvis CT 12/15/172099 Signed Impressions: Service Date/Time: Friday, December 15, 2017 21:08 - CONCLUSION: 1. Questionable inflammatory or edematous changes around the lower pole right kidney. Differential diagnosis includes pyelonephritis or recent stone passage. No renal calculi or obstructive uropathy. 2. Colonic diverticulosis. Vahid Ballard MD Objective Remarks GENERAL: Well-nourished, well-developed obese male laying comfortably in bed. SKIN: No rashes, ecchymoses or lesions. Cool and dry. HEAD: Atraumatic. Normocephalic. No temporal or scalp tenderness. Pupils equal round and reactive. Extraocular motions intact. No scleral icterus. No injection or drainage. Nose without bleeding, purulent drainage or septal hematoma. Throat without erythema, tonsillar hypertrophy or exudate. Uvula midline. Airway patent. NECK: Trachea midline. No lymphadenopathy. Supple, nontender, no meningeal signs. CARDIOVASCULAR: Regular rate and rhythm. No appreciable murmurs, rubs, or gallops. RESPIRATORY: Clear to auscultation. Breath sounds equal bilaterally. No wheezes , rales, or rhonchi. GASTROINTESTINAL: Positive bowel sounds in all four quadrants. Abdomen soft, nontender, nondistended. No hepatosplenomegaly or palpable masses. No guarding. MUSCULOSKELETAL: Extremities without clubbing, cyanosis, or edema. No joint tenderness, effusion, or edema noted. NEUROLOGICAL: Awake and alert. Motor and sensory grossly within normal limits. Normal speech. A/P Assessment and Plan Coronary artery disease/ Afib Troponin level elevated, likely s/t sepsis. The pt endorses palpitations. Nursing reports telemetry suggested A fib at times. Cardiology consult appreciated. 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 - Continue BB, ACEi and statin. Add ASA. - telemetry. - transfer to [facility] for further work-up. Discussed with cardiology. - will need rhythm monitoring as an outpt. Bronchitis Cough and mucous production improving. - Continue Rocephin. D/c azithromycin. - O2 and nebs as needed. - Tessalon Perles as needed. - encourage ambulation, IS. R flank pain CT A/P with questionable inflammatory or edematous changes around the lower pole of the R kidney concerning for pyelo vs. recent stone passage. - Check urine culture. NGTD. - continue ceftriaxone (started 12/16). Hypokalemia Potassium noted to be 2.7 on admission, provided with KCl IV and PO. Chronic problem per pt. - Replete and monitor. Improved without HCTZ. Diabetes mellitus Hyperglycemic on admission with glucosuria, normal anion gap. - Hold home PO meds and place on SSI per protocol Hypertension BP fluctuates. - Holding home HCTZ for now given hypokalemia. - Continue metoprolol. Add lisinopril, increase to 20 mg daily. Adjust as needed. - Hydralazine PRN. DVT prophylaxis: Lovenox Discharge Planning Transfer to Neftali Jefferson DO December 19, 2017 10:58
[2017-12-19] MEDS: ASPIRIN EC 81 MG TABEC PO SCH (11:00)
[2017-12-19] MEDS ORDERED: POTASSIUM CHLORIDE 20 MEQ CONTROLLED RELEASE TAB PO ONE (11:00)
[2017-12-19] MEDS: PRAVASTATIN SOD 80 MG TAB PO SCH (11:29)
[2017-12-19] MEDS: DOCUSATE SODIUM 50 MG/SENNA 8.6 MG TAB PO SCH ×2 (11:30→21:00)
[2017-12-19] MEDS: guaiFENesin E.R. 600 MG TAB PO SCH ×2 (11:30→21:10)
[2017-12-19] MEDS: ENOXAPARIN SODIUM 40 MG/0.4 ML SYRINGE SQ SCH (11:31)
[2017-12-19] MEDS: hydrALAZINE HCL 25 MG TAB PO PRN ×2 (11:41→21:15)
[2017-12-19] MEDS: BENZONATATE 100 MG CAP PO PRN ×2 (11:42→21:11)
[2017-12-19 12:33] VITALS: BP 185/94; PULSE 66; RESP 17; TEMP 98.1; O2SAT 97
[2017-12-19 16:27] VITALS: BP 139/80; PULSE 87; RESP 19; TEMP 98.6
[2017-12-19] MEDS ORDERED: LISINOPRIL 20 MG TAB PO ONE (16:30)
[2017-12-19 20:00] VITALS: BP 187/107; PULSE 70; PULSE 76; RESP 15; TEMP 99.1; O2SAT 95
[2017-12-19] MEDS: ACETAMINOPHEN/HYDROcodone 325 MG/5 MG TAB PO PRN (21:15)
[2017-12-19] MEDS: cefTRIAXone INJ 1,000 MG in SODIUM CHLORIDE 0.9% INJ 100 ML IV SCH (21:16)
[2017-12-20] VITALS (7 sets, daily range): BP systolic 101–183; BP diastolic 66–111; PULSE 61–86; RESP 15–21; TEMP 97.1–99; O2SAT 95–99
[2017-12-20] MEDS: METOPROLOL TARTRATE 100 MG TAB PO SCH ×2 (06:00→18:07)
[2017-12-20] MEDS: INSULIN ASPART SUPPLEMENTAL SCALE SQ SCH ×4 (08:00→21:00)
[2017-12-20] MEDS: PRAVASTATIN SOD 80 MG TAB PO SCH (08:01)
[2017-12-20] MEDS: ASPIRIN EC 81 MG TABEC PO SCH (08:01)
[2017-12-20] MEDS: guaiFENesin E.R. 600 MG TAB PO SCH ×2 (08:03→21:00)
[2017-12-20] MEDS: DOCUSATE SODIUM 50 MG/SENNA 8.6 MG TAB PO SCH ×2 (08:03→21:00)
[2017-12-20] MEDS: ENOXAPARIN SODIUM 40 MG/0.4 ML SYRINGE SQ SCH (08:03)
[2017-12-20] MEDS: SODIUM CHLORIDE 0.9% FLUSH 10 ML FLUSH IV FLUSH SCH ×2 (08:04→21:00)
[2017-12-20] MEDS ORDERED: LISINOPRIL 20 MG TAB PO SCH (09:00)
[2017-12-20] MEDS: NS 1000P @30 MLS/HR (KVO) IV SCH (10:15)
[2017-12-20] MEDS ORDERED: HEPARIN-NS/PF FLUSH BAG 2,000 ML IV FLUSH ONE (12:48)
[2017-12-20] MEDS ORDERED: NITROGLYCERIN INJ 5 ML ONE (13:05)
[2017-12-20] MEDS ORDERED: MIDAZOLAM HCL 2 MG/2 ML VIAL ONE (13:05)
[2017-12-20] MEDS ORDERED: VERAPAMIL HCL 5 MG/2 ML VIAL ONE (13:13)
--- NOTE | 2017-12-20 14:11 | CATHPROC ---
[employer] HIS Report Study Information Study Number Admission Scheduled Start Study Start [id number] Dec 16 2017 12:31AM 12/20/2017 Dec 20 2017 12:52PM [place] [facility] Cardiac Catheterization Admit Source Facility Department Other [facility] - Welding Machine Operator Resistance Physician and Clinical Staff Initial Uziel Baum Track Welder Kelvin Oakes RN Recorder Ambreen Mcneal,GRASS FARMER TECH2 Scrub Gabriella Lacy ,RT(R) Procedures Performed Procedure Location (Site) Vessel Name Coronary Angiograms LCA Left Coronary Coronary Angiograms RCA Right Coronary Equipment Time Vat Washer Description Size Mfg Part Number Used/Scraped TRANSDUCER, TRUWAVE [id number] 13:09 MCKINNEY CUELLO * Used W/STOCKCOCK *[id number] [id number] *[id number] [id number] *[id number] 13:09 [employer] PACK, CCL CUSTOM * Used *[id number] 13:09 [employer] SUPPORT, ARTERIAL ADULT 98510 *[id number] Used BAND, RADIAL COMPRESSION TR [id number] 13:48 [employer] MEDICAL 29CM Used LARGE 29 *[id number] 13:09 [employer] WIRE, EXCHANGE 260CM 3MMJ 260CM Used *[id number] 13:09 NAMIC MANIFOLD, 4 PORT * Used *[id number] 13:09 [employer]COMED OMNIPAQUE, 350 MG, 150ML 150ML [id number] Used [id number] 13:09 [employer] BLANKET,WARM AIR CCL * Used *[id number] SHEATH, FR6 TRANSRADIAL [id number] 13:09 [employer] FR 6 Used SLENDER 10CM *[id number] History: Current Medications Medication Dosage/Unit Route Frequency Last Date/Time Taken K-Dur Statins (any) LOVENOX History: Allergies Allergy Reaction penicillin G RASH History: Risk Factors Hypertension Dyslipidemia Previous ID Previous Heart Failure Yes Yes Yes No Prior Valve Prior PCI Prior CABG Surgery No No No Cerebrovascular Peripheral Artery Chronic Lung On Dialysis Diabetes Disease Disease Disease No No No No Yes History: Symptoms/Diagnosis Selection Items Palpitations History: Stress Tests Stress or Imaging Studies Performed Yes Standard Exercise Stress Test No Stress Echo No Stress Test SPECT Stress Test SPECT Result Stress Test SPECT Ischemia Risk/Extent Yes Positive High Stress Test CMR No Cardiac CTA Coronary Calcium Score No No History: Arrhythmias Selection Items Atrial fibrillation Labs Hgb (g/dl) Hct (%) WBC (l/cumm) Platelets (thousands) 11.60-17.00 35.00-51.00 4.00-11.00 150.00-450.00 13.2 40.5 10 159 Glucose (mg/dl) BUN (mg/dl) Creatinine (mg/dl) BUN:Creatinine (1:x) 74.00-106.00 7.00-18.00 0.50-1.30 10.00-20.00 230 9 0.6 15 Na (meq/l) K (meq/l) Cl (meq/l) CO2 (mmol/L) Ca (mg/dl) 136.00-145.00 3.50-5.10 98.00-107.00 21.00-32.00 8.50-10.10 142 3.7 110 26.7 8.4 Troponin I (ng/ml) CPK-MB (ng/ML) 0.02-0.05 0.50-3.60 0.14 Not Drawn Medication Medication Total Dose (Bolus/Oral) Medication Total Dosage/Unit 1% XYLOCAINE 5 mL FENTANYL 50 mcg RADIAL COCKTAIL 5 mL (Bolus) VERSED 1 mg Medications (Bolus/Oral) Medication Time Given Dosage/Unit Administered By Reason VERSED 12/20/2017 1:31:02 PM 0.5 mg Violette, Kelvin 0.5 mg VERSED given in lab by Kelvin Oakes RN in Right Hand via Peripheral IV. Ordered by Uziel Arriaga 1% XYLOCAINE 12/20/2017 1:31:47 PM 5 mL Violette, Kelvin 5 mL 1% XYLOCAINE given in lab by Kelvin Oakes RN in Right Radial via Subcutaneous. Ordered by Uziel Andujar FENTANYL 12/20/2017 1:32:15 PM 25 mcg Violette, Kelvin 25 mcg FENTANYL given in lab by Kelvin Oakes RN in Right Hand via Peripheral IV. Ordered by Uziel Arriaga RADIAL COCKTAIL 12/20/2017 1:33:36 PM 5 mL (Bolus) Uziel Arriaga 5 mL (Bolus) RADIAL COCKTAIL given in lab by Uziel Arriaga in Right Radial via Radial. Using [S olution Name]. Ordered by Uziel Arriaga Reason: Ntg 200mcg Verapamil 2.5mg Heparin 4700U. VERSED 12/20/2017 1:34:17 PM 0.5 mg Kelvin Oakes 0.5 mg VERSED given in lab by Kelvin Oakes RN in Right Hand via Peripheral IV. Ordered by Uziel Arriaga FENTANYL 12/20/2017 1:35:21 PM 25 mcg Kelvin Oakes 25 mcg FENTANYL given in lab by Kelvin Oakes RN in Right Hand via Peripheral IV. Ordered by Uziel Arriaga Medication (Drip) Medication Time Given Dosage/Unit Concentration/Unit Diluent (ml) Solution IV Solutions 12/20/2017 1:00:29 PM 0 mL (IV) 500 NaCl .9 IV Solutions given in lab by Kelvin Oakes RN in Right Hand via Peripheral IV. Pump/Drip Flow = 30 ml /hr using NaCl .9. Ordered by Uziel Arriaga Initial Case Assessment Cardiovascular HR Rhythm NIBP Chest Pain 64 sr 172/91 0 Circulatory - Right Pulses Dorsalis Pedis Femoral 3 3 Scale (0,1,2,3,4,d) Circulatory - Left Pulses Dorsalis Pedis Femoral 3 3 Scale (0,1,2,3,4,d) Neurological State Oriented to time-place- Alert Moves all extremities person Respiration - General Respiration Rate SpO2 (%) (B/min) 16 96 Final Case Assessment Cardiovascular HR Rhythm NIBP Chest Pain 62 sr 139/81 0 Circulatory - Right Pulses Dorsalis Pedis Femoral 3 3 Scale (0,1,2,3,4,d) Circulatory - Left Pulses Dorsalis Pedis Femoral 3 3 Scale (0,1,2,3,4,d) Neurological State Oriented to time-place- Alert Moves all extremities person Respiration - General Respiration Rate SpO2 (%) O2 (lpm) (B/min) 19 93 95 Chronological Log Time Study Chronological Log 12:55:50 Patient arrived via Bed. 12:55:56 Patient Name, D.O.B, / Armband Verified By R.N. 12:56:11 Pre-op and post- op instructions given; patient acknowledges understanding of instructions. 12:56:13 Verbal Stimulation=2 Physical Stimulation=2 Airway=2 Respiration=2 TOTAL=8. (0=absent, 1=li mited, 2=present) 13:00:28 A # 20 IV was noted in the Hand (right). Grade = patent IV Solutions given in lab by Kelvin Oakes, RN in Right Hand via Peripheral IV. Pump/Drip Flow = 30 ml/hr using NaCl .9. 13:00:29 Ordered by Uziel Arriaga 13:04:44 Bilateral groins and right radial prepped with 2% chlorhexidine, and draped after a 3 minut e waiting time. 13:06:03 Reference ECG taken 13:06:10 Consent signed by the physician and the patient and verified by the Welding Machine Operator Resistance staff. 13:06:15 Presedation assessment performed by Welding Machine Operator Resistance RN. 13:06:19 Allens test performed on the right radial and ulnar artery. 13:06:20 Patient has been NPO for More than 6Hrs. 13:06:21 Skin Breakdown-none 13:06:25 Celestino Prominences Protected 13:06:30 History and physical on the chart or being dictated. Vitals capture started with the following parameters, Patient=Adult, Interval=5 min, Initial Pr eghina=292 mmHg, 13:06:35 Deflation Rate=5 mmHg, Cuff placed on Left Arm Assessment: Initial Case, HR=64 BPM, Rhythm=sr, FQAE=436/91 mmhg, Chest Pain=0 Right Pulses: Jose Guadalupe Ped=3, Femoral=3 13:07:40 Left Pulses: Jose Guadalupe Ped=3, Femoral=3 Neurological: State=Alert, Ox3, GRIFFIN Respiration: Resp=16 B/min, SpO2=96 % 13:07:58 HR=64 bpm, MLQZ=267/91 mmhg, SpO2=96.0 %, Resp=24 B/min 13:12:20 HR=66 bpm, CCKK=256/96 mmhg, SpO2=96.0 %, Resp=17 B/min 13:17:21 HR=71 bpm, BFYM=207/107 mmhg, SpO2=96.0 %, Resp=15 B/min 13:18:45 Pressure channel 1 zero failed. 13:18:50 Pressure channel 1 zeroed. 13:22:21 HR=71 bpm, FNDM=306/94 mmhg, SpO2=97.0 %, Resp=15 B/min 13:24:54 MD arrived. 13:27:22 HR=70 bpm, ACXF=110/95 mmhg, SpO2=96.0 %, Resp=13 B/min Time Out. Correct patient, correct procedure, correct physician, power injector not loaded with contrast with surgical 13:30:48 team present. Time Out Concurred by MD and individual staff in procedure. 13:31:02 0.5 mg VERSED given in lab by Kelvin Oakes RN in Right Hand via Peripheral IV. Ordered by Uziel Arriaga 13:31:46 Case Start 5 mL 1% XYLOCAINE given in lab by Kelvin Oakes RN in Right Radial via Subcutaneous. Ordered by Uziel Arriaga 13:31:47 G. 13:32:15 25 mcg FENTANYL given in lab by Kelvin Oakes RN in Right Hand via Peripheral IV. Ordered b y Uziel Arriaga 13:32:25 HR=67 bpm, MVCI=592/92 mmhg, SpO2=95.0 %, Resp=30 B/min 13:32:43 Access site was Radial Artery. Right A SHEATH, FR6 TRANSRADIAL SLENDER 10CM FR 6 was advanced into the Fem Art (right) using the Per cutaneous 13:32:54 technique. 5 mL (Bolus) RADIAL COCKTAIL given in lab by Uziel Arriaga in Right Radial via Radial. Us ing [Solution Name]. 13:33:36 Ordered by Uziel Arriaga Reason: Ntg 200mcg Verapamil 2.5mg Heparin 4700U. A JR 4.0 INFINITI CATHETER FR 5 was advanced over a wire. OMNIPAQUE, 350 MG, 150ML 150ML was us ed for 13:34:03 injections. 13:34:17 0.5 mg VERSED given in lab by Kelvin Oakes RN in Right Hand via Peripheral IV. Ordered by Uziel Arriaga 13:35:21 25 mcg FENTANYL given in lab by Kelvin Oaeks RN in Right Hand via Peripheral IV. Ordered by Uziel Arriaga Recorded Pressure: LV, HR=75, Condition=Condition 1 13:35:26 (Left Ventricle) LV 139/5/8 Recorded Pressure: LV, Ao, HR=75, Condition=Condition 1 13:35:41 (Left Ventricle) LV 130/6/10, (Aorta) Ao 135/83/109 13:36:58 The RCA was injected and visualized at various angles. OMNIPAQUE, 350 MG, 150ML 150ML use d. 13:37:14 HR=74 bpm, LPLK=041/85 mmhg, SpO2=92.0 %, Resp=25 B/min 13:38:41 Catheter was removed A JL 3.5 INFINITI CATHETER FR 5 was advanced over a wire. OMNIPAQUE, 350 MG, 150ML 150ML was u sed for 13:38:43 injections. 13:41:43 The LCA was injected and visualized at various angles. OMNIPAQUE, 350 MG, 150ML 150ML use d. 13:42:21 HR=68 bpm, TORF=736/63 mmhg, SpO2=94.0 %, Resp=20 B/min 13:44:11 Catheter was removed 13:45:26 Case End 13:47:14 HR=65 bpm, XXOX=025/86 mmhg, SpO2=91.0 %, Resp=25 B/min Radial Compression Device Used. 11 mLs of air placed in BAND, RADIAL COMPRESSION TR LARGE 29 2 9CM. Affected 13:47:47 hand 95 % O2 saturation. Assessment: Final Case, HR=62 BPM, Rhythm=sr, LJTW=069/81 mmhg, Chest Pain=0 Right Pulses: Jose Guadalupe Ped=3, Femoral=3 13:49:55 Left Pulses: Jose Guadalupe Ped=3, Femoral=3 Neurological: State=Alert, Ox3, GRIFFIN Respiration: Resp=19 B/min, SpO2=93 %, O2=95 lpm 13:52:17 HR=62 bpm, DSJO=188/81 mmhg, SpO2=91.0 %, Resp=25 B/min 13:57:18 HR=65 bpm, IWBB=897/80 mmhg, Resp=12 B/min 14:00:31 Patient moved to bed 14:01:49 Patient transported to DOCU. End Study - Contrast Media Used In Study Contrast Total Opened (mL) Total Used (mL) Total Wasted (mL) Omnipaque 35 35 0 End Study - Maximum Contrast Load Max Contrast Load (mL) 1000.0 End Study - Radiation Exposure Fluoro Time (minutes) 2.9 End Study - Sheaths Sheaths Pulled By Sheath Hold Time (min) Gabriella Lacy End Study - Patient Disposition Complications Transferred To Interventional Outcome No Telemetry Bed No attempt made
[2017-12-20] MEDS ORDERED: METOPROLOL TARTRATE 25 MG TAB PO SCH (15:15)
[2017-12-20] MEDS ORDERED: CHLORHEXIDINE GLUCONATE 4% SOLN 120 ML BTL TOPICAL SCH (15:15)
[2017-12-20] MEDS ORDERED: VANCOMYCIN INJ 1,750 MG in SODIUM CHLORID 0.9% 500 ML INJ 500 ML IV SCH (15:15)
[2017-12-20] MEDS ORDERED: INSULIN REGULAR (IV INFUSION) 100 UNITS in SODIUM CHLORIDE 0.9% INJ 99 ML IV PRN (15:15)
[2017-12-20] MEDS ORDERED: PAPAVERINE INJ 60 MG, NITROGLYCERIN INJ 100 MCG, VERAPAMIL INJ 100 MG in SODIUM CHLORID... IRRIGATION SCH (15:15)
[2017-12-20] MEDS ORDERED: SODIUM CHLORIDE 0.9% FLUSH 10 ML FLUSH IV FLUSH PRN (15:15)
[2017-12-20] MEDS ORDERED: VANCOMYCIN INJ 1,000 MG in SODIUM CHLORIDE 0.9% IRR BTL 1,000 ML IRRIGATION SCH (15:15)
[2017-12-20] MEDS ORDERED: DEXTROSE 50% IN WATER 50 ML VIAL(D50) IV PUSH PRN (15:15)
[2017-12-20] MEDS ORDERED: IOHEXOL 350 MG/ML 50 ML BTL (for Cath Lab) OTHER ONE (15:36)
--- NOTE | 2017-12-20 16:06 | PD.CAR.PN ---
CVT Progress Note Subjective/Hospital Course: pt seen and evaluated / full consult to follow sts data discussed with pt RISK SCORES About the STS Risk Calculator Procedure: CAB Only Risk of Mortality: 0.571% Morbidity or Mortality: 9.22% Long Length of Stay: 3.387% Short Length of Stay: 55.397% Permanent Stroke: 0.598% Prolonged Ventilation: 6.439% DSW Infection: 0.673% Renal Failure: 1.152% Reoperation: 3.401% Objective: Vital Signs Date Time Temp Pulse Resp B/P (MAP) Pulse Ox O2 Delivery O2 Flow Rate FiO2 12/20/17 14:14 93 Room Air 12/20/17 10:17 98.1 61 18 183/103 (129) 98 12/20/17 08:00 97.1 64 21 173/97 (122) 96 12/20/17 04:00 99.0 70 16 170/90 (116) 96 12/20/17 00:00 98.1 86 15 101/66 (78) 99 12/19/17 20:00 76 12/19/17 20:00 99.1 70 15 187/107 (133) 95 12/19/17 16:27 98.6 87 19 139/80 (99) Result Diagram: 12/17/17 0645 12/19/17 0918 Kenia Rahman December 20, 2017 16:06
--- NOTE | 2017-12-20 16:11 | RADRPT ---
EXAM DATE/TIME: 12/20/2017 15:49 [facility] COMPARISON: CT ABDOMEN & PELVIS W/O CONTRAST, December 15, 2017, 21:08. CHEST SINGLE AP, December 15, 2017, 21:27. INDICATIONS : Evaluate for pneumonia, pneumothorax, or communicable disease. Pre op CABG. MEDICAL HISTORY : None. SURGICAL HISTORY : None. ENCOUNTER: Initial ACUITY: 1 day PAIN SCORE: 0/10 LOCATION: Bilateral chest FINDINGS: The cardiomediastinal contours are unremarkable. Minimal peribronchial thickening and parenchymal ch anges left base nonspecific. Osseous structures are intact. CONCLUSION: Minimal nonspecific parenchymal changes left base. new from 12/15/17 Edin Gresham MD FACR on December 20, 2017 at 16:08 Board Certified Radiologist. This report was verified electronically.
--- NOTE | 2017-12-20 16:19 | MB ---
cc: Kenia Rahman DATE: 12/20/2017 HISTORY OF PRESENT ILLNESS: A 62-year-old male, patient of Dr. Hartley, Dr. Swift, history of some palpitations, no diagnosed arrhythmias, was recently on a cruise, on a river boat apparently, 11/28 through 12/03, became ill with some bronchitis, had a cough and congestion. He said other passengers were also ill. He presented and had a fever of 104 at home. His initial workup troponins were mildly elevated, which went from 0.12 to 0.34. Complete workup showed negative strep screen, negative urine screen. Blood cultures negative. He had recently passed a kidney stone [address] abdomen showed some right kidney pyelonephritis versus recent stone passage. They were treating him with some IV antibiotics. His white cell count went from 24,000 to 10,000. He then underwent cardiac catheterization today, which showed an ejection fraction of 60%. The left main disease of 40%, mid distal LAD 99%, the diagonal 30. The circumflex was 95, the OM 99%, the RCA 90% and the ramus was 70%. The cardiac films have been reviewed by Dr. Reilly Pittman. His targets are very small; however, he is being evaluated for possible coronary artery bypass grafting x 3. PAST MEDICAL HISTORY: Includes hypertension, hyperlipidemia, diabetes mellitus, osteoarthritis, kidney stones. He has had 8 of them in the past. He just recently passed one. Obesity. PAST SURGICAL HISTORY: Include right knee arthroscopy. ALLERGIES: INCLUDE PENICILLIN. HOME MEDICATIONS: Include simvastatin, metoprolol, meclizine, metformin, dapagliflozin. FAMILY HISTORY: Mother at age 75 with cancer. Father at 87 with heart disease. He has 1 brother still living, 82, but had bypass graft at age 63, has 2 living sisters. 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 Occasional cigar, rare alcohol. REVIEW OF SYSTEMS: GENERAL: No night sweats, fever, heat and cold intolerance. SKIN: No psoriasis, itching or hives. HEENT: No blurred vision, hearing loss. RESPIRATORY: Positive for recent cough, shortness of breath, which has improved. GASTROINTESTINAL: No diarrhea or vomiting. GENITOURINARY: No burning, frequency or urgency. CENTRAL NERVOUS SYSTEM: No history of TIA, CVA or seizure disorder. ENDOCRINOLOGY: Positive for diabetes. PHYSICAL EXAMINATION: VITAL SIGNS: Blood pressure 170/90, heart rate of 64, afebrile, room air sat 93%. GENERAL: The patient is awake, alert, in no acute distress. HEENT: Head is normocephalic, atraumatic. Pupils equal and reactive. Oral mucosa pink, moist. NECK: Supple. No JVD. HEART: Sounds S1, S2. Regular rate and rhythm. No audible rubs, murmurs or gallops. LUNGS: Diminished in the bases, otherwise clear to auscultation. ABDOMEN: Soft, obese, nontender. No masses or organomegaly. EXTREMITIES: No cyanosis or edema. LABORATORY AND DIAGNOSTIC DATA: Hemoglobin 13, hematocrit of 40, white cell count of 10, platelet count of 159. Sodium 142, potassium 3.7, BUN 9, creatinine 0.66, glucose 173. INR 1.1. Urinalysis is unremarkable. Negative C difficile. Blood cultures negative. Influenza A and B negative. Negative strep screen. Negative sputum screen. Radiological exams as above. IMPRESSION: This is a 62-year-old man with multivessel disease, ejection fraction of 60%. The cardiac films have been evaluated by Dr. Reilly Pittman. Evaluation for coronary artery bypass grafting, which will be done on Monday, the . Procedures, alternatives and risks have been discussed with the patient. The patient is agreeable to proceed. ICS data will be documented in electronic record. EFRAIN Suarez MD JRT/BETHANIE , 03:55 PM , 04:19 PM
[2017-12-20] MEDS: HEPARIN-D5W 25,000 U/250 ML 250 ML IV PRN (17:01)
[2017-12-20] MEDS: ACETAMINOPHEN/HYDROcodone 325 MG/5 MG TAB PO PRN (17:07)
[2017-12-20 17:23] LABS: HEMATOCRIT 38.6 % (39.0-51.0); HEMOGLOBIN 13.5 GM/DL (13.0-17.0); MEAN CELL VOLUME 90.7 FL (80.0-100.0); MEAN CORPUSCULAR HEMOGLOBIN 31.8 PG (27.0-34.0); MEAN CORPUSCULAR HGB CONC 35.1 % (32.0-36.0); MEAN PLATELET VOLUME 10.1 FL (7.0-11.0); PLATELET COUNT 221 TH/MM3 (150-450); RED BLOOD COUNT 4.25 MIL/MM3 (4.50-5.90); RED CELL DISTRIBUTION WIDTH 12.8 % (11.6-17.2); WHITE BLOOD COUNT 7.4 TH/MM3 (4.0-11.0)
[2017-12-20 17:47] LABS: PROTHROMBIN TIME - PATIENT 10.1 SEC (9.8-11.6)
[2017-12-20 19:15] LABS: BILIRUBIN, URINE NEG (NEG); BLOOD, URINE NEG (NEG); GLUCOSE,URINE NEG (NEG); KETONE, URINE 10 mg/dL (NEG); MUCUS URINE FEW /lpf (OCC); NITRITE,URINE NEG (NEG); URINE COLOR YELLOW (YELLW/STRAW); URINE LEUKOCYTE ESTERASE NEG (NEG)
--- NOTE | 2017-12-20 19:19 | ECHRPT ---
Indication: CAD, PRE CABG, ?VALVES CONCLUSIONS Normal left ventricular size. Mild concentric left ventricular hypertrophy. The left ventricular systolic function is normal (EF 60%). Othmp-qe-oxap mitral valve regurgitation. There is trace tricuspid valve regurgitation. . BP: 135 / 84 HR: Rhythm: Sinus MEASUREMENTS (Male / Female) Normal Values Technical Quality:Fair 2D ECHO LV Diastolic Diameter PLAX 5.5 cm 4.2 - 5.9 / 3.9 - 5.3 cm LV Systolic Diameter PLAX 3.6 cm IVS Diastolic Thickness 1.4 cm 0.6 - 1.0 / 0.6 - 0.9 cm LVPW Diastolic Thickness 1.4 cm 0.6 - 1.0 / 0.6 - 0.9 cm LV Relative Wall Thickness 0.5 RV Internal Dim ED PLAX 2.3 cm LVOT Diameter 2.1 cm Aortic Root Diameter 3.3 cm LA Systolic Diameter LX 3.0 cm 3.0 - 4.0 / 2.7 - 3.8 cm M-MODE AV Cusp Separation MM 2.2 cm DOPPLER AV Peak Velocity 167.0 cm/s AV Peak Gradient 11.2 mmHg AV Mean Gradient 6.0 mmHg AV Velocity Time Integral 30.8 cm LVOT Peak Velocity 136.0 cm/s LVOT Peak Gradient 7.4 mmHg LVOT Velocity Time Integral 24.6 cm AV Area Cont Eq vti 2.8 cm AV Area Cont Eq pk 2.8 cm Mitral E Point Velocity 85.9 cm/s Mitral A Point Velocity 85.9 cm/s Mitral E to A Ratio 1.0 LV E' Lateral Velocity 10.8 cm/s Mitral E to LV E' Lateral Ratio 8.0 LV E' Septal Velocity 8.0 cm/s Mitral E to LV E' Septal Ratio 10.8 PV Peak Velocity 82.0 cm/s PV Peak Gradient 2.7 mmHg FINDINGS LEFT VENTRICLE Normal left ventricular size. Mild concentric left ventricular hypertrophy. The left ventricular systolic function is normal (EF 60%). RIGHT VENTRICLE Normal right ventricular size and systolic function. LEFT ATRIUM The left atrial size is normal. RIGHT ATRIUM The right atrial size is normal. ATRIAL SEPTUM No atrial level shunt is demonstrated by color flow Doppler interrogation. AORTA The aortic root and proximal ascending aorta are not well visualized. MITRAL VALVE Hyetd-lu-nfah mitral valve regurgitation. AORTIC VALVE Trileaflet aortic valve. No aortic valve stenosis or regurgitation. TRICUSPID VALVE There is trace tricuspid valve regurgitation. PULMONARY VALVE Trivial pulmonary valve regurgitation. VESSELS The inferior vena cava is normal in size. PERICARDIUM No pericardial effusion. Hernandez Jara MD, FACC (Electronically Signed) Final Date:20 Dec 2017 19:18
[2017-12-20] MEDS ORDERED: HEPARIN SODIUM - IV 10,000 UNITS/10 ML VIAL IV PUSH PRN (20:00)
[2017-12-20] MEDS ORDERED: SODIUM CHLORIDE 0.9% FLUSH 10 ML FLUSH IV FLUSH SCH (21:00)
--- NOTE | 2017-12-20 21:14 | RADRPT ---
EXAM DATE/TIME: 12/20/2017 18:06 [facility] COMPARISON: No previous studies available for comparison. INDICATIONS : Preop cardiac surgery. MEDICAL HISTORY : [place]. Hypercholesterol. HTN. Kidney stones. SURGICAL HISTORY : Right knee surgery. ENCOUNTER: Initial ACUITY: 1 day PAIN SCORE: LOCATION: Bilateral neck PEAK SYSTOLIC VELOCITIES (cm/sec): ICA/CCA RATIO: Right: 1.0 Left: 0.7 ICA: Right: 90 Left: 87 CCA: Right: 86 Left: 123 ECA: Right: 215 Left: 224 VERTEBRAL: Right: 84 antegrade Left: 141 antegrade Elevated flow velocities and ICA/CCA ratios have been found to correlate with increased degrees of vessel stenosis, calculated as percentage of diameter relative to a normal segment of distal ICA/CCA FINDINGS: RIGHT CAROTID: No significant stenosis is visualized. The waveforms are within normal limits. LEFT CAROTID: No significant stenosis is visualized. The waveforms are within normal limits. VERTEBRAL ARTERIES: Antegrade flow is seen in both vertebral arteries. MISCELLANEOUS: None. CONCLUSION: Negative carotid ultrasound examination. James Donovan MD on December 20, 2017 at 21:09 Board Certified Radiologist. This report was verified electronically.
--- NOTE | 2017-12-20 21:14 | RADRPT ---
EXAM DATE/TIME: 12/20/2017 19:13 [facility] COMPARISON: US CAROTID ARTERIES, December 20, 2017, 18:06. INDICATIONS : Preop cardiac surgery. MEDICAL HISTORY : [place]. Hypercholesterol. HTN. Kidney stones. SURGICAL HISTORY : Right knee surgery. ENCOUNTER: Initial ACUITY: 1 day PAIN SCORE: 0/10 LOCATION: Bilateral leg. TECHNIQUE: Venous ultrasound of the left and right leg was performed from the inguinal ligament to the proximal calf. Real-time, color Doppler and spectral tracing, compression and augmentation techniques were us ed. FINDINGS: RIGHT LEG: There is normal compressibility of the deep venous system from the inguinal region to the proximal ca lf. No echogenic clot is seen in the lumen of the common femoral, femoral, popliteal, and posterior tibial veins. There is a normal response of the venous system to proximal and distal augmentation an d respiration. LEFT LEG: There is normal compressibility of the deep venous system from the inguinal region to the proximal ca lf. No echogenic clot is seen in the lumen of the common femoral, femoral, popliteal, and posterior tibial veins. There is a normal response of the venous system to proximal and distal augmentation an d respiration. CONCLUSION: No DVT. James Donovan MD on December 20, 2017 at 21:12 Board Certified Radiologist. This report was verified electronically.
--- NOTE | 2017-12-20 21:15 | RADRPT ---
EXAM DATE/TIME: 12/20/2017 19:55 [facility] COMPARISON: No previous studies available for comparison. INDICATIONS : Preop cardiac surgery. MEDICAL HISTORY : [place]. Hypercholesterol. HTN. Kidney stones. SURGICAL HISTORY : Right knee surgery. ENCOUNTER: Initial ACUITY: 1 day PAIN SCORE: 0/10 LOCATION: Bilateral leg. GREATER SAPHENOUS VEIN THIGH: PROXIMAL: Right 11 mm Left 9 mm MID: Right 5 mm Left 5 mm DISTAL: Right 4 mm Left 4 mm CALF: PROXIMAL: Right 4 mm Left 4 mm MID: Right 4 mm Left 4 mm DISTAL: Right 4 mm Left 4 mm FINDINGS: The venous system of the lower extremities are patent by color Doppler imaging. Measurements of the leg veins (in mm) are listed above. CONCLUSION: Venous mapping as delineated above. James Donovan MD on December 20, 2017 at 21:13 Board Certified Radiologist. This report was verified electronically.
[2017-12-20 22:12] LABS: HEMOGLOBIN A1C 9.2 % (4.3-6.0)
[2017-12-20] MEDS: hydrALAZINE HCL 25 MG TAB PO PRN (22:30)
[2017-12-20] MEDS: cefTRIAXone INJ 1,000 MG in SODIUM CHLORIDE 0.9% INJ 100 ML IV SCH (22:31)
--- NOTE | 2017-12-20 23:45 | MB ---
cc: Uziel Arriaga Vincent G DO DATE: 12/20/2017 REASON FOR CONSULTATION: Consideration of cardiac catheterization due to abnormal stress test. HISTORY OF PRESENT ILLNESS: Eren Calhoun is a pleasant 62-year-old male who sees my partner, Dr. Hartley, in the office and presented to [facility] emergency room on 12/16/2017 due to right flank pain. Mr. Calhoun ended up coming into the emergency room because of fevers and chills and some right flank pain. Concern for possible pyelonephritis as he had right flank pain, dysuria, and hematuria, but then these symptoms seemed to pass around 3 days ago as he may have passed a stone. He has had multiple kidney stones in the past, some requiring extraction. While here a troponin was noted to be elevated at 0.12 and increasing to 0.34. He was seen by Dr. Harper and underwent stress testing which showed multiple areas of ischemia and overall a high risk stress test and so he was recommended cardiac catheterization. He was transferred to [facility] and, in seeing him, he denies current chest pain or shortness of breath. PAST MEDICAL HISTORY: 1. Hypertension. 2. Hyperlipidemia. 3. Diabetes mellitus. 4. Osteoarthritis. 5. Kidney stones. 6. Obesity. PAST SURGICAL HISTORY: Right knee arthroscopy. ALLERGIES: PENICILLIN. MEDICATIONS: 1. Zocor 40 mg daily. 2. Metoprolol tartrate 100 mg b.i.d. 3. Hydrochlorothiazide 25 mg daily. 4. Meclizine 25 mg t.i.d. as needed for vertigo. 5. Metformin 500 mg t.i.d. 6. Farxiga 5 mg daily. FAMILY HISTORY: Mother at the age of 75 from cancer. Father at the age of 87 with heart disease. He has 1 brother still living at the age of 82 and had bypass grafts at the age of 62, and 2 living sisters. SOCIAL HISTORY: The patient rarely smokes a cigar. He rarely drinks alcohol. REVIEW OF SYSTEMS: Fourteen systems were reviewed including osteopathic. Pertinent positives and negatives above, otherwise negative. PHYSICAL EXAMINATION: VITAL SIGNS: Temperature 97.1, heart rate 64, blood pressure 173/97, respirations 21, pulse oximetry 96% on room air. GENERAL: The patient appears well in no acute distress. Alert, awake, oriented x3. HEENT: Extraocular muscles intact. Mucous membranes moist. NECK: Supple. No JVD at 45 degrees. No carotid bruits heard bilaterally. Carotid upstroke is brisk in nature. HEART: Regular rate and rhythm. Positive first and second heart sounds with no noted murmurs, gallops or rubs. LUNGS: Clear to auscultation bilaterally. No wheezes, rales or rhonchi. ABDOMEN: Soft, nontender, nondistended. No organomegaly noted. EXTREMITIES: Show no clubbing, cyanosis or edema. Femoral and distal pulses are intact bilaterally. NEUROLOGIC: No focal deficits. SKIN: Warm, dry and intact. OSTEOPATHIC: No kyphoscoliosis, lordosis or paraspinal tender points. LABORATORY DATA: Hemoglobin 13.5, hematocrit 38.6, platelets 221. potassium 3.7, BUN 9, creatinine 0.66, troponin 0.34. CARDIOLOGY STUDIES: Electrocardiogram (12/17/2017 at 10:54): Sinus rhythm with occasional PACs, possible left ventricular hypertrophy by voltage criteria. IMPRESSION 1. Elevated troponin, possible type 1 versus type 2. 2. Abnormal stress test showing multiple areas of ischemia, high risk stress test. 3. Hypertension. 4. Hyperlipidemia. 5. Diabetes mellitus. 6. Flank pain with hematuria, possibly passing a kidney stone. RECOMMENDATIONS: 1. Mr. Calhoun presented and was found to have an elevated troponin and underwent stress testing which showed multiple areas of ischemia. 2. Because of this, he will be recommended cardiac catheterization. Risks, benefits and alternatives have been discussed with him and he consented to such. 3. We will also obtain a 2-Dimensional echo to look at his overall left ventricular function, cardiac structure and possible valvulopathies. 4. Further recommendations will be made after coronary visualization. Thank you for allowing me to see Eren Calhoun. If there are any questions, please do not hesitate to call. DO NEENA MagañaP/ , 11:15 PM , 11:44 PM
[2017-12-21] VITALS (7 sets, daily range): BP systolic 138–165; BP diastolic 83–97; PULSE 61–71; RESP 16–20; TEMP 97.9–99; O2SAT 94–97
[2017-12-21] MEDS ORDERED: cloNIDine HCL 0.1 MG TAB PO ONE
--- NOTE | 2017-12-21 04:09 | MA ---
cc: Uziel Arriaga Vincent G DO DATE: 12/20/2017 PREPROCEDURE DIAGNOSIS: Elevated troponin, abnormal stress test (high risk). POSTOPERATIVE DIAGNOSIS: Multivessel coronary artery disease. MEDICATIONS: Versed 1 mg, fentanyl 50 mcg, nitroglycerin 200 mcg, heparin 4700 units, verapamil 2.5 mg. CONTRAST USED: 35 mL. FLUOROSCOPY TIME: 2.9 minutes. MODERATE SEDATION: 15 minutes. FRAILTY SCORE: 3. ESTIMATED BLOOD LOSS: 10 mL. PROCEDURAL SUMMARY: Eren Calhoun is a pleasant 62-year-old male who sees my partner, Dr. Hartley, in the office and was found to have an elevated troponin. He underwent stress testing which showed multiple areas of ischemia and considered a high risk stress test and so he was recommended cardiac catheterization. Risks, benefits and alternatives were explained and he consents as such. He was brought to the lab and prepped in the usual sterile fashion. The right radial artery was accessed using a modified Seldinger technique and placement of a 5/6 ____ sheath. This is easily aspirated and flushed. A JR4 was advanced over a J-wire to the ascending aorta and across the aortic valve for measurement of left ventricular pressure. This was pulled back across the aortic valve showing no significant gradient of aortic stenosis. JR4 was used for selective angiography of the right coronary artery system. This was exchanged out for a JL 3.5, which was used for selective angiography of the left coronary artery system. JL 3.5 was removed over a J wire. A radial band was placed over the arteriotomy site for hemostasis. The patient left the rn cardiac cath cardiovascularly stable. FINDINGS: Left main is a normal-size vessel with 40% diffuse disease. It bifurcates into an LAD and circumflex. LAD: Small to moderate vessel with diffuse disease throughout the proximal and mid portion of 70-90%. In the mid to distal portion, there is a 99% lesion. It gives off multiple small diagonals with diffuse 70% disease. Left circumflex is a moderate size vessel with tandem 95% lesions in the proximal portion. It gives off 3 obtuse marginals with the first one being small and subtotally occluded, the second one being overall small, the third one with a 99% occlusion before giving an upper and lower branch. Ramus is a small to moderate sized vessel with an 80% lesion in the mid portion. RCA: Tandem lesions of 90% in the ostial and proximal ____. Mid portion has 70% disease. Distally appears to have 90% lesion before giving off a posterolateral and PDA. Left ventricular end-diastolic pressure 10. IMPRESSION 1. Elevated troponin. 2. Abnormal stress test. 3. Multivessel disease. 4. Hypertension. 5. Hyperlipidemia. 6. Diabetes mellitus. RECOMMENDATIONS: 1. Mr. Calhoun appears to have multivessel disease and will be evaluated by CT surgery for consideration of coronary artery bypass grafting. 2. The case was discussed with Dr. Pittman, who will see him in consultation. 3. We will check a 2-Dimensional echocardiogram to look at his overall left ventricular function, cardiac structure and possible valvulopathies. 4. Due to his elevated troponin and significance of disease, he will be placed on a heparin drip 1 hour after his TR band is removed. 5. We will hold his angiotensin converting enzyme inhibitor in anticipation of undergoing coronary artery bypass grafting. Thank you for allowing me to see Eren Calhoun. If there are any questions, please do not hesitate to call. Uziel Arriaga DO VGP/SA/ , 11:23 PM , 12:05 AM
[2017-12-21 06:10] LABS: AUTOMATED NEUTROPHIL # 5.7 TH/MM3 (1.8-7.7); BASOPHIL # 0.3 TH/MM3 (0-0.2); EOSINOPHIL # 0.1 TH/MM3 (0-0.4); EOSINOPHIL % 1.4 % (0.0-4.0); HEMATOCRIT 39.1 % (39.0-51.0); HEMOGLOBIN 13.4 GM/DL (13.0-17.0); LYMPH % 15.3 % (9.0-44.0); LYMPHOCYTE # 1.2 TH/MM3 (1.0-4.8); MEAN CELL VOLUME 91.8 FL (80.0-100.0); MEAN CORPUSCULAR HEMOGLOBIN 31.5 PG (27.0-34.0); MEAN CORPUSCULAR HGB CONC 34.3 % (32.0-36.0); MEAN PLATELET VOLUME 9.6 FL (7.0-11.0); MONO % 5.9 % (0.0-8.0); MONOCYTE # 0.5 TH/MM3 (0-0.9); NEUT % 73.4 % (16.0-70.0); PLATELET COUNT 220 TH/MM3 (150-450); RED BLOOD COUNT 4.26 MIL/MM3 (4.50-5.90); WHITE BLOOD COUNT 7.7 TH/MM3 (4.0-11.0)
[2017-12-21] MEDS: METOPROLOL TARTRATE 100 MG TAB PO SCH ×2 (06:35→18:42)
[2017-12-21 06:36] LABS: BICARBONATE 26.9 MEQ/L (21.0-32.0); CALCIUM 8.8 MG/DL (8.5-10.1); CREATININE 0.75 MG/DL (0.60-1.30)
[2017-12-21] MEDS: HEPARIN SODIUM - IV 10,000 UNITS/10 ML VIAL IV PUSH PRN ×2 (06:36→23:06)
[2017-12-21] MEDS: ASPIRIN EC 81 MG TABEC PO SCH (08:22)
[2017-12-21] MEDS: DOCUSATE SODIUM 50 MG/SENNA 8.6 MG TAB PO SCH ×2 (08:22→21:00)
[2017-12-21] MEDS: PRAVASTATIN SOD 80 MG TAB PO SCH (08:23)
[2017-12-21] MEDS: INSULIN ASPART SUPPLEMENTAL SCALE SQ SCH ×4 (08:23→21:00)
[2017-12-21] MEDS: SODIUM CHLORIDE 0.9% FLUSH 10 ML FLUSH IV FLUSH SCH ×2 (08:24→21:00)
[2017-12-21] MEDS: guaiFENesin E.R. 600 MG TAB PO SCH ×2 (08:32→21:27)
--- NOTE | 2017-12-21 08:41 | HHI.PR ---
Subjective Remarks The patient is in the chair. He is saturating well on room air. Says he does not have any chest pain at this time no shortness of breath or palpitations. He was found to have three-vessel disease by cardiac cath. Is awaiting evaluation for cardiothoracic surgeon for CABG. Objective Vitals Vital Signs Date Time Temp Pulse Resp B/P (MAP) Pulse Ox O2 Delivery O2 Flow Rate FiO2 12/21/17 03:00 97.9 71 16 151/86 (107) 95 12/21/17 03:00 71 12/20/17 23:00 98.4 67 18 183/111 (135) 97 12/20/17 23:00 67 12/20/17 19:00 98.6 66 20 171/103 (125) 96 12/20/17 19:00 66 12/20/17 16:30 95 Room Air 12/20/17 16:30 97.9 69 16 147/89 (108) 95 12/20/17 16:30 69 12/20/17 14:14 93 Room Air 12/20/17 10:17 98.1 61 18 183/103 (129) 98 I/O 12/20/17 12/20/17 12/20/17 12/21/17 12/21/17 12/21/17 07:00 15:00 23:00 07:00 15:00 23:00 Intake Total 120 ml 120 ml 1201 ml Output Total 300 ml 800 ml Balance 120 ml -180 ml 401 ml Intake Oral 120 ml 120 ml 960 ml IV Total 241 ml Output Urine Total 300 ml 800 ml # Bowel Movements 0 Result Diagram: 12/21/17 0548 12/21/17 0548 Imaging Last Impressions Lower Extremity Ultrasound 12/20/17 0000 Signed Impressions: Service Date/Time: Wednesday, December 20, 2017 19:55 - CONCLUSION: Venous mapping as delineated above. James Donovan MD Chest X-Ray 12/20/17 0000 Signed Impressions: Service Date/Time: Wednesday, December 20, 2017 15:49 - CONCLUSION: Minimal nonspecific parenchymal changes left base. new from 12/15/17 Edin Gresham MD FACR Carotid Artery Ultrasound 12/20/17 0000 Signed Impressions: Service Date/Time: Wednesday, December 20, 2017 18:06 - CONCLUSION: Negative carotid ultrasound examination. James Donovan MD Myocardial Perfusion Scan Nuc Med 12/18/17 0600 Signed Impressions: Service Date/Time: Monday, December 18, 2017 09:52 - CONCLUSION: 1. Scintigraphic findings suggest significant ischemia in the lateral, inferolateral, low anteroseptal and periapical santos. 2. 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 3. Diffuse hypokinesis with paradoxical motion in the inferior base. Dilated cardiomyopathy with reduced ejection fraction of 31%%. RISK CATEGORY: High (>3%% Annual Mortality Rate) Erlin Beaulieu MD Abdomen/Pelvis CT 12/15/17 2100 Signed Impressions: Service Date/Time: Friday, December 15, 2017 21:08 - CONCLUSION: 1. Questionable inflammatory or edematous changes around the lower pole right kidney. Differential diagnosis includes pyelonephritis or recent stone passage. No renal calculi or obstructive uropathy. 2. Colonic diverticulosis. Vahid Ballard MD Objective Remarks GENERAL:Very pleasant 62 yo male, laying comfortably in bed. CARDIOVASCULAR: Regular rate and rhythm. No appreciable murmurs, rubs, or gallops. RESPIRATORY: Clear to auscultation. Breath sounds equal bilaterally. No wheezes , rales, or rhonchi. GASTROINTESTINAL: Positive bowel sounds in all four quadrants. Abdomen soft, nontender, nondistended. No hepatosplenomegaly or palpable masses. No guarding. MUSCULOSKELETAL: Extremities without clubbing, cyanosis, or edema. No joint tenderness, effusion, or edema noted. NEUROLOGICAL: Awake and alert. Motor and sensory grossly within normal limits. Normal speech. A/P Assessment and Plan Coronary artery disease/ Afib Three-vessel disease by cardiac cath 12/20/[address] Arriaga Consult cardiothoracic surgeon for CABG x3 Troponin level elevated, likely 2/2 demand ischemia from afib. The patient endorses palpitations. Nursing reports telemetry suggested A fib at times. Cardiology consult appreciated. Stress test: Scintigraphic findings suggest significant ischemia in the lateral, inferolateral, low anteroseptal and periapical santos; Old infarct in the low inferior wall extending into the posterior apex; Diffuse hypokinesis with paradoxical motion in the inferior base ; Dilated cardiomyopathy with reduced ejection fraction of 31%. Continue BB, ACEI, statin, ASA. S/p cardiac cath Monitor on Telemetry. Will need rhythm monitoring as an outpt. Plan for 2D echo Bronchitis Cough and mucous production improving. Continue Rocephin. D/c azithromycin. O2 and nebs as needed. Tessalon Perles as needed. encourage ambulation, IS. R flank pain CT A/P with questionable inflammatory or edematous changes around the lower pole of the R kidney concerning for pyelo vs. recent stone passage. Check urine culture. NGTD. continue ceftriaxone (started 12/16). Hypokalemia Potassium noted to be 2.7 on admission, provided with KCl IV and PO. Chronic problem per pt. Replete and monitor. Improved without HCTZ. Diabetes mellitus type 2 Hyperglycemic on admission with glucosuria, normal anion gap. Hold home PO meds and place on SSI per protocol Hypertension BP fluctuates. Holding home HCTZ for now given hypokalemia. Continue metoprolol.Lisinopril, increased to 20 mg daily. Adjust as needed. Hydralazine PRN. DVT prophylaxis: Lovenox Discharge Planning S/p cardiac cath. Patient with three-vessel disease, cardiothoracic surgeon consulted, plan for CABG 12/22/17 Jessica English MD December 21, 2017 08:41
--- NOTE | 2017-12-21 08:41 | HHI.PR ---
Subjective Remarks Late entry The patient was seen 12/20/17 in the DOCU before procedure Family at bedside Patient says he has no pain at this time. No palpitations at this time. Says he usually feels palpitations. No lightheadedness. No sob, fever or chills. Objective Vitals Vital Signs Date Time Temp Pulse Resp B/P (MAP) Pulse Ox O2 Delivery O2 Flow Rate FiO2 12/21/17 03:00 97.9 71 16 151/86 (107) 95 12/21/17 03:00 71 12/20/17 23:00 98.4 67 18 183/111 (135) 97 12/20/17 23:00 67 12/20/17 19:00 98.6 66 20 171/103 (125) 96 12/20/17 19:00 66 12/20/17 16:30 95 Room Air 12/20/17 16:30 97.9 69 16 147/89 (108) 95 12/20/17 16:30 69 12/20/17 14:14 93 Room Air 12/20/17 10:17 98.1 61 18 183/103 (129) 98 I/O 12/20/17 12/20/17 12/20/17 12/21/17 12/21/17 12/21/17 07:00 15:00 23:00 07:00 15:00 23:00 Intake Total 120 ml 120 ml 1201 ml Output Total 300 ml 800 ml Balance 120 ml -180 ml 401 ml Intake Oral 120 ml 120 ml 960 ml IV Total 241 ml Output Urine Total 300 ml 800 ml # Bowel Movements 0 Result Diagram: 12/21/17 0548 12/21/17 0548 Imaging Last Impressions Lower Extremity Ultrasound 12/20/17 0000 Signed Impressions: Service Date/Time: Wednesday, December 20, 2017 19:55 - CONCLUSION: Venous mapping as delineated above. James Donovan MD Chest X-Ray 12/20/17 0000 Signed Impressions: Service Date/Time: Wednesday, December 20, 2017 15:49 - CONCLUSION: Minimal nonspecific parenchymal changes left base. new from 12/15/17 Edin Gresham MD FACR Carotid Artery Ultrasound 12/20/17 0000 Signed Impressions: Service Date/Time: Wednesday, December 20, 2017 18:06 - CONCLUSION: Negative carotid ultrasound examination. James Donovan MD Myocardial Perfusion Scan Nuc Med 12/18/17 0600 Signed Impressions: Service Date/Time: Monday, December 18, 2017 09:52 - CONCLUSION: 1. Scintigraphic findings suggest significant ischemia in the lateral, inferolateral, low anteroseptal and periapical santos. 2. 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 3. Diffuse hypokinesis with paradoxical motion in the inferior base. Dilated cardiomyopathy with reduced ejection fraction of 31%%. RISK CATEGORY: High (>3%% Annual Mortality Rate) Erlin Beaulieu MD Abdomen/Pelvis CT 12/15/17 2100 Signed Impressions: Service Date/Time: Friday, December 15, 2017 21:08 - CONCLUSION: 1. Questionable inflammatory or edematous changes around the lower pole right kidney. Differential diagnosis includes pyelonephritis or recent stone passage. No renal calculi or obstructive uropathy. 2. Colonic diverticulosis. Vahid Ballard MD Objective Remarks GENERAL:Very pleasant 62 yo male, laying comfortably in bed. CARDIOVASCULAR: Regular rate and rhythm. No appreciable murmurs, rubs, or gallops. RESPIRATORY: Clear to auscultation. Breath sounds equal bilaterally. No wheezes , rales, or rhonchi. GASTROINTESTINAL: Positive bowel sounds in all four quadrants. Abdomen soft, nontender, nondistended. No hepatosplenomegaly or palpable masses. No guarding. MUSCULOSKELETAL: Extremities without clubbing, cyanosis, or edema. No joint tenderness, effusion, or edema noted. NEUROLOGICAL: Awake and alert. Motor and sensory grossly within normal limits. Normal speech. A/P Assessment and Plan Coronary artery disease/ Afib Troponin level elevated, likely 2/2 demand ischemia from afib. The pt endorses palpitations. Nursing reports telemetry suggested A fib at times. Cardiology consult appreciated. 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 Continue BB, ACEI, statin, ASA. Monitor on Telemetry. Will need rhythm monitoring as an outpt. Bronchitis Cough and mucous production improving. Continue Rocephin. D/c azithromycin. O2 and nebs as needed. Tessalon Perles as needed. encourage ambulation, IS. R flank pain CT A/P with questionable inflammatory or edematous changes around the lower pole of the R kidney concerning for pyelo vs. recent stone passage. Check urine culture. NGTD. continue ceftriaxone (started 12/16). Hypokalemia Potassium noted to be 2.7 on admission, provided with KCl IV and PO. Chronic problem per pt. Replete and monitor. Improved without HCTZ. Diabetes mellitus type 2 Hyperglycemic on admission with glucosuria, normal anion gap. Hold home PO meds and place on SSI per protocol Hypertension BP fluctuates. Holding home HCTZ for now given hypokalemia. Continue metoprolol.Lisinopril, increased to 20 mg daily. Adjust as needed. Hydralazine PRN. DVT prophylaxis: Lovenox Discharge Planning Plan for cardiac cath Jessica English MD December 21, 2017 08:41
[2017-12-21] MEDS ORDERED: POTASSIUM BICARBONATE 25 MEQ EFFERVESCENT TAB PO ONE (08:45)
[2017-12-21 08:46] LABS: PROTHROMBIN TIME - PATIENT 10.2 SEC (9.8-11.6)
[2017-12-21] MEDS ORDERED: LISINOPRIL 20 MG TAB PO SCH (09:00)
--- NOTE | 2017-12-21 09:48 | PD.CAR.PN ---
CVT Progress Note Subjective/Hospital Course: A 62-year-old male, patient of Dr. Hartley, Dr. Swift, history of some palpitations, no diagnosed arrhythmias, was recently on a cruise, on a river boat apparently, 11/28 through 12/03, became ill with some bronchitis, had a cough and congestion. He said other passengers were also ill. He presented and had a fever of 104 at home. His initial workup troponins were mildly elevated, which went from 0.12 to 0.34. Complete workup showed negative strep screen, negative urine screen. Blood cultures negative. He had recently passed a kidney stone [address] abdomen showed some right kidney pyelonephritis versus recent stone passage. They were treating him with some IV antibiotics. His white cell count went from 24,000 to 10,000. He then underwent cardiac catheterization today, which showed an ejection fraction of 60 %. The left main disease of 40%, mid distal LAD 99%, the diagonal 30. The circumflex was 95, the OM 99%, the RCA 90% and the ramus was 70%. The cardiac films have been reviewed by Dr. Reilly Pittman. His targets are very small; however, he is being evaluated for possible coronary artery bypass grafting x 3. PAST MEDICAL HISTORY: Includes hypertension, hyperlipidemia, diabetes mellitus, osteoarthritis, kidney stones. Objective: GENERAL: SKIN: Warm and dry. HEAD: Normocephalic. EYES: No scleral icterus. No injection or drainage. NECK: Supple, trachea midline. No JVD or lymphadenopathy. CARDIOVASCULAR: Regular rate and rhythm without murmurs, gallops, or rubs. RESPIRATORY: Breath sounds equal bilaterally. No accessory muscle use. GASTROINTESTINAL: Abdomen soft, non-tender, nondistended. MUSCULOSKELETAL: No cyanosis, or edema. BACK: Nontender without obvious deformity. No CVA tenderness. Vital Signs Date Time Temp Pulse Resp B/P (MAP) Pulse Ox O2 Delivery O2 Flow Rate FiO2 12/21/17 03:00 97.9 71 16 151/86 (107) 95 12/21/17 03:00 71 12/20/17 23:00 98.4 67 18 183/111 (135) 97 12/20/17 23:00 67 12/20/17 19:00 98.6 66 20 171/103 (125) 96 12/20/17 19:00 66 5/9/18 16:30 95 Room Air 12/20/17 16:30 97.9 69 16 147/89 (108) 95 12/20/17 16:30 69 12/20/17 14:14 93 Room Air 12/20/17 10:17 98.1 61 18 183/103 (129) 98 Labs: Laboratory Tests Test 12/20/17 23:36 12/21/17 05:48 12/21/17 08:20 Activated Partial Thromboplast Time 24.5 SEC (24.3-30.1) 26.8 SEC (24.3-30.1) White Blood Count 7.7 TH/MM3 (4.0-11.0) Red Blood Count 4.26 MIL/MM3 (4.50-5.90) Hemoglobin 13.4 GM/DL (13.0-17.0) Hematocrit 39.1 % (39.0-51.0) Mean Corpuscular Volume 91.8 FL (80.0-100.0) Mean Corpuscular Hemoglobin 31.5 PG (27.0-34.0) Mean Corpuscular Hemoglobin Concent 34.3 % (32.0-36.0) Red Cell Distribution Width 13.0 % (11.6-17.2) Platelet Count 220 TH/MM3 (150-450) Mean Platelet Volume 9.6 FL (7.0-11.0) Neutrophils (%) (Auto) 73.4 % (16.0-70.0) Lymphocytes (%) (Auto) 15.3 % (9.0-44.0) Monocytes (%) (Auto) 5.9 % (0.0-8.0) Eosinophils (%) (Auto) 1.4 % (0.0-4.0) Basophils (%) (Auto) 4.0 % (0.0-2.0) Neutrophils # (Auto) 5.7 TH/MM3 (1.8-7.7) Lymphocytes # (Auto) 1.2 TH/MM3 (1.0-4.8) Monocytes # (Auto) 0.5 TH/MM3 (0-0.9) Eosinophils # (Auto) 0.1 TH/MM3 (0-0.4) Basophils # (Auto) 0.3 TH/MM3 (0-0.2) CBC Comment DIFF FINAL Differential Comment Blood Urea Nitrogen 10 MG/DL (7-18) Creatinine 0.75 MG/DL (0.60-1.30) Random Glucose 185 MG/DL (74-106) Calcium Level 8.8 MG/DL (8.5-10.1) Sodium Level 145 MEQ/L (136-145) Potassium Level 3.7 MEQ/L (3.5-5.1) Chloride Level 110 MEQ/L (98-107) Carbon Dioxide Level 26.9 MEQ/L (21.0-32.0) Anion Gap 8 MEQ/L (5-15) Estimat Glomerular Filtration Rate 105 ML/MIN (>89) Prothrombin Time 10.2 SEC (9.8-11.6) Prothromb Time International Ratio 1.0 RATIO Result Diagram: 12/21/1748 12/21/1748 Telemetry: NSR (1) Coronary artery disease Plan: on ASA, BB statin for surgery in am (2) Diabetes mellitus Plan: on insulin sliding scale (3) Hypertension Plan: add norvasc and prn clonidine (4) Hyperlipemia Plan: add statin (5) Bronchitis Kenia Rahman December 21, 2017 09:48
--- NOTE | 2017-12-21 09:55 | HHI.FF ---
Face to Face Verification Diagnosis: (1) S/P CABG (coronary artery bypass graft) (2) Coronary artery disease (3) Diabetes mellitus (4) Hyperlipemia (5) Hypertension Home Health Nursing Order: Signs/symptoms of disease process Diabetic education Medication education-adverse effect Wound care and dressing changes Nursing assessment with vital signs Instructions: Heart and Vascular Surgery patients *Special attention to sternal dressing Mandatory frequency Assess and evaluation, 4 days in a row The next week 3X week 2 times a week for 4 weeks 1 time a week for 5 weeks Schedule Heart and Vascular patients for full 60 day certification period Initial visit Review Open Heart Surgery Discharge Instructions (Sternal precautions, Activity, Elastic hose, Incision care, Driving, Incentive spirometry, Smoking, [place], Work and other) Need Betadine to paint incision Medication reconciliation Importance of follow up care/ check on appointments Make calendar record temperature daily When to call [facility] at Home nurse, review instructions, phone list Incentive Spirometry, demonstration Visit 1- Begin discharge instruction for patient family and/ or caregiver using teach back method- Signs and symptoms of infection Disease characteristics Medicines and side effects Foods and nutrition/ appetite Infection control/ hand washing/ hygiene Visit 2- Continue teaching Discharge instructions- include additional information on smoking cessation , sternal dressing (sternal vac) Visit 3- Continue teaching- Cough and deep breathing, incision monitoring. Choose my plate Visit 4- Continue teaching- Discuss limitations Discuss how they are feeling Discuss progress toward goals Remaining visits- continue teaching and monitoring For any questions please call : Monday 8am-5pm Heart & Vascular Surgery Office ( Dr. Pittman & Dr. Carl), After Hours / Nights (5pm -8am) Weekends and Holidays Please call [facility] Cardiac Intermediate Care Unit (CIC) Charge Nurse PREVENA Single Use Negative Wound Therapy System Caregiver Instruction Sheet 1. A Prevena dressing system was applied to the chest incision during surgery , to promote wound healing. It works via a suction device (negative pressure wound therapy) to remove low to moderate levels of exudate (drainage) and infectious materials. We recommend that the device stay in place for up to seven days, from day of surgery. 2. Day of Surgery__12/22/17 Day of Removal _12/29/17 3. The dressing should only be removed by a health residential care officer. Please arrange removal of device to coincide with Home Health visit and or with Nursing staff at Rehab 4. If skin reddening or irritation of skin occurs, or excessive drainage, please notify the Cardiovascular Surgeons office at [phone]. 5. Light showering is permissible; however the pump should be disconnected and placed in safe location, where it will not get wet. The dressing should not be exposed to direct spray or submerged in water. No bath tub / shower only. Ensure the end of the tubing attached to the dressing is facing down so that water does not enter the top of the tube. 6. To remove Prevena dressing: press purple button to turn off device / remove the suction. Then disconnect the tubing from the pump. The fixation strips should be stretched away from the skin and the dressing lifted at one corner and peeled back until it has been fully removed. 7. After removal, it is ok to shower daily using liquid dial soap and clean wash cloth, rinse and pat dry, and leave incision open to air dry. For any concerns regarding Prevena dressing, and or wounds, please contact Janine Banuelos, patient navigator at [phone] or notify the Cardiovascular Surgeons office at [phone]. Incentive spirometry Q1 hr x 10, while awake, also use acapella device hourly whole awake Sternal Breast Bone Precautions: NO pushing or pulling, ( pt must use sternal pillow to support chest with all activities and with coughing ( takes up to 3 months breast bone to heal ) All females to wear sternal bra , launder as needed Daily incision care: ok to shower daily, no tub bath. Wash all incisions with liquid dial soap, clean wash cloth to each site, rinse and pat dry. Observe for any signs of infection, such as drainage which is dark yellow, alvarez, green or foul smelling. Immediately report to the surgeon any drainage from the chest incision, or legs, and for any abnormal drainage from the chest tube sites. Notify surgeon if any temp >101.5 degrees F. When specialty dressing removed/ or if you do not have one, continue to shower daily as above, then rinse and pat incision dry and paint with betadine daily x 5 days. Allow steri strips to fall off if you have any. Avoid lotions, creams, salves, oils, etc. for the first month Please see attached forms for additional instructions regarding post Open Heart specialty wound vacuum dressings. LUÍS or Prevena , Dressing to be removed by Nursing staff on __12/29/17 F/U appointment: as per DC instructions: PCP in 2 weeks, CV surgeon 2 weeks, Primary School Teacher 3-4 weeks For any questions regarding incisions/ dressing / meds / post op care or above Symptoms, Monday 8am-5pm Heart & Vascular Surgery Office ( Dr. Pittman & Dr. Carl), After Hours / Nights (5pm -8am) Weekends and Holidays Please call [facility] Cardiac Intermediate Care Unit (CIC) Charge Nurse I have seen patient Eren Calhoun on 12/21/17. My clinical findings support the need for the requested home health care services because: Deconditioned w/ increased weakness I certify that my clinical findings support that this patient is homebound because: Post-op weakness Kenia Rahman December 21, 2017 09:55
[2017-12-21] MEDS: NS 1000P @30 MLS/HR (KVO) IV SCH (10:15)
[2017-12-21] MEDS: HEPARIN-D5W 25,000 U/250 ML 250 ML IV PRN (10:41)
[2017-12-21] MEDS ORDERED: cloNIDine HCL 0.1 MG TAB PO PRN (11:00)
[2017-12-21] MEDS ORDERED: POTASSIUM CHLORIDE 20 MEQ CONTROLLED RELEASE TAB PO ONE (12:00)
--- NOTE | 2017-12-21 17:59 | PD.CARD.PN ---
Subjective Subjective Remarks Patient was seen earlier today, late entry note Feels well, no chest pains Objective Medications Current Medications Medications (Trade) Dose Ordered Sig/Juani Route Start Time Stop Time Status Last Admin Ceftriaxone Sodium 1000 mg/ Sodium Chloride 100 ml @ 200 mls/hr Q24H IV 12/16/17 23:00 12/20/17 22:31 (D50w (Vial) Inj) 50 ml UNSCH PRN IV PUSH 12/16/17 00:30 (Glucagon Inj) 1 mg UNSCH PRN OTHER 12/16/17 00:30 (NovoLOG SUPPLEMENTAL SCALE) 1 ACHS SLIDING SCALE SQ 12/16/17 08:00 12/21/17 17:26 (NS Flush) 2 ml UNSCH PRN IV FLUSH 12/16/17 00:30 (NS Flush) 2 ml BID IV FLUSH 12/16/17 09:00 12/21/17 08:24 (Zofran Inj) 4 mg Q6H PRN IVP 12/16/17 00:30 (Tylenol) 650 mg Q6H PRN PO 12/16/17 00:30 12/16/17 07:46 ([place] 5-325 Mg) 1 tab Q4H PRN PO 12/16/17 00:30 12/20/17 17:07 ([place] 10-325 Mg) 1 tab Q4H PRN PO 12/16/17 00:30 (Pratibha-Colace) 1 tab BID PO 12/16/17 09:00 12/21/17 08:22 (Milk Of Magnesia Liq) 30 ml Q12H PRN PO 12/16/17 00:30 (Senokot) 17.2 mg Q12H PRN PO 12/16/17 00:30 (Dulcolax Supp) 10 mg DAILY PRN RECTAL 12/16/17 00:30 (Lactulose Liq) 30 ml DAILY PRN PO 12/16/17 00:30 (Pravachol) 80 mg DAILY PO 12/16/17 09:00 12/21/17 08:23 (Lopressor) 100 mg Q12H PO 12/16/17 06:30 12/21/17 06:35 (Apresoline) 25 mg Q8HR PRN PO 12/16/17 08:00 12/20/17 22:30 (Duoneb Neb) 1 ampule Q4HR NEB PRN NEB 12/16/17 08:45 (Mucinex Er) 1,200 mg BID PO 12/17/17 09:30 12/21/17 08:32 (Tessalon) 200 mg TID PRN PO 12/17/17 09:30 12/19/17 21:11 (Ecotrin Ec) 81 mg DAILY PO 12/19/17 11:00 12/21/17 08:22 Sodium Chloride 1,000 ml @ 30 mls/hr Q24H IV 12/20/17 10:15 12/20/17 10:15 (Heparin Inj) 5,000 units UNSCH PRN IV PUSH 12/20/17 20:00 12/21/17 00:14 (Heparin Inj) 2,500 units UNSCH PRN IV PUSH 12/20/17 20:00 12/21/17 06:36 Heparin Sodium/ Dextrose 250 ml @ 10 mls/hr TITRATE PRN IV 12/20/17 14:00 12/21/17 10:41 Papaverine HCl 60 mg/Nitroglycerin 100 mcg/Verapamil HCl 100 mg/Sodium Chloride 100 ml @ 0 mls/hr ELEMENTARY [employer] IRRIGATION 12/20/17 15:15 12/27/17 15:14 Vancomycin HCl 1000 mg/Sodium Chloride 1,000 ml @ 0 mls/hr ELEMENTARY [employer] IRRIGATION 12/20/17 15:15 12/27/17 15:14 Vancomycin HCl 1750 mg/Sodium Chloride 517.5 ml @ 258.75 mls/ hr ELEMENT[employer] IV 12/20/17 15:15 12/27/17 15:14 (Lopressor) 12.5 mg ELEMENTARY [employer]ER PO 12/20/17 15:15 12/27/17 15:14 (Hibiclens 4% Top Soln) 1 applic ELEMENTARY SP[employer]ISH TE[employer]ER TOPICAL 12/20/17 15:15 12/27/17 15:14 Insulin Human Regular 100 units/ Sodium Chloride 100 ml @ 3 mls/hr TITRATE PRN IV 12/20/17 15:15 12/27/17 15:14 (D50w (Vial) Inj) 50 ml UNSCH PRN IV PUSH 12/20/17 15:15 (Norvasc) 10 mg DAILY PO 12/21/17 11:00 12/21/17 11:20 (Catapres) 0.1 mg Q6H PRN PO 12/21/17 11:00 12/21/17 11:20 Vital Signs / I&O Vital Signs Date Time Temp Pulse Resp B/P (MAP) Pulse Ox O2 Delivery O2 Flow Rate FiO2 12/21/17 15:00 70 12/21/17 11:00 97.9 61 16 145/97 (113) 97 12/21/17 11:00 64 12/21/17 07:00 63 12/21/17 07:00 99.0 64 16 165/87 (113) 97 12/21/17 03:00 97.9 71 16 151/86 (107) 95 12/21/17 03:00 71 12/20/17 23:00 98.4 67 18 183/111 (135) 97 12/20/17 23:00 67 12/20/17 19:00 98.6 66 20 171/103 (125) 96 12/20/17 19:00 66 I/O 12/20/17 12/20/17 12/20/17 12/21/17 12/21/17 12/21/17 07:00 15:00 23:00 07:00 15:00 23:00 Intake Total 120 ml 120 ml 1201 ml Output Total 300 ml 800 ml Balance 120 ml -180 ml 401 ml Intake Oral 120 ml 120 ml 960 ml IV Total 241 ml Output Urine Total 300 ml 800 ml # Bowel Movements 0 Physical Exam GENERAL: NAD, AAOx3 SKIN: Warm and dry. HEAD: Atraumatic. Normocephalic. EYES: Pupils equal and round. No scleral icterus. No injection or drainage. ENT: No nasal bleeding or discharge. Mucous membranes pink and moist. NECK: Trachea midline. No JVD. CARDIOVASCULAR: Regular rate and rhythm. RESPIRATORY: No accessory muscle use. Clear to auscultation. Breath sounds equal bilaterally. GASTROINTESTINAL: Abdomen soft, non-tender, nondistended. Hepatic and splenic margins not palpable. MUSCULOSKELETAL: Extremities without clubbing, cyanosis, or edema. No obvious deformities. Right radial no hematoma, neurovascularly intact distally NEUROLOGICAL: Awake and alert. No obvious cranial nerve deficits. Motor grossly within normal limits. Five out of 5 muscle strength in the arms and legs. Normal speech. PSYCHIATRIC: Appropriate mood and affect; insight and judgment normal. Laboratory Laboratory Tests Test 12/20/17 23:36 12/21/17 05:48 12/21/17 08:20 12/21/17 11:11 Activated Partial Thromboplast Time 24.5 SEC 26.8 SEC 27.5 SEC White Blood Count 7.7 TH/MM3 Red Blood Count 4.26 MIL/MM3 Hemoglobin 13.4 GM/DL Hematocrit 39.1 % Mean Corpuscular Volume 91.8 FL Mean Corpuscular Hemoglobin 31.5 PG Mean Corpuscular Hemoglobin Concent 34.3 % Red Cell Distribution Width 13.0 % Platelet Count 220 TH/MM3 Mean Platelet Volume 9.6 FL Neutrophils (%) (Auto) 73.4 % Lymphocytes (%) (Auto) 15.3 % Monocytes (%) (Auto) 5.9 % Eosinophils (%) (Auto) 1.4 % Basophils (%) (Auto) 4.0 % Neutrophils # (Auto) 5.7 TH/MM3 Lymphocytes # (Auto) 1.2 TH/MM3 Monocytes # (Auto) 0.5 TH/MM3 Eosinophils # (Auto) 0.1 TH/MM3 Basophils # (Auto) 0.3 TH/MM3 CBC Comment DIFF FINAL Differential Comment Blood Urea Nitrogen 10 MG/DL Creatinine 0.75 MG/DL Random Glucose 185 MG/DL Calcium Level 8.8 MG/DL Sodium Level 145 MEQ/L Potassium Level 3.7 MEQ/L Chloride Level 110 MEQ/L Carbon Dioxide Level 26.9 MEQ/L Anion Gap 8 MEQ/L Estimat Glomerular Filtration Rate 105 ML/MIN Prothrombin Time 10.2 SEC Prothromb Time International Ratio 1.0 RATIO Assessment and Plan Problem List: (1) Coronary artery disease ICD Codes: I25.10 - Atherosclerotic heart disease of [place] coronary artery without angina pectoris (2) Diabetes mellitus ICD Codes: E11.9 - Type 2 diabetes mellitus without complications (3) Hypertension ICD Codes: I10 - Essential (primary) hypertension (4) Hyperlipemia ICD Codes: E78.5 - Hyperlipidemia, unspecified (5) Bronchitis ICD Codes: J40 - Bronchitis, not specified as acute or chronic Status: Acute Assessment and Plan 1) NSTEMI/MVCAD For CABG tomorrow Con't heparin drip 2) EF 55-60% by Uziel Small DO December 21, 2017 17:59
[2017-12-21] MEDS: cefTRIAXone INJ 1,000 MG in SODIUM CHLORIDE 0.9% INJ 100 ML IV SCH (23:05)
[2017-12-22] VITALS (14 sets, daily range): BP systolic 107–155; BP diastolic 55–88; PULSE 65–96; RESP 16–18; TEMP 97.2–99.5; O2SAT 92–97
[2017-12-22] MEDS ORDERED: INSULIN HUMAN REGULAR 1,000 UNITS/10 ML VIAL SQ PRN (02:00)
[2017-12-22] MEDS ORDERED: LACTATED RINGER'S 1000 ML IV PRN (02:00)
[2017-12-22] MEDS ORDERED: SODIUM CHLORID 0.9% 500 ML IV PRN (02:00)
[2017-12-22] MEDS ORDERED: POVIDONE IODINE 5% (ANTISEPSIS KIT) 4 APPLICATIONS EACH NARE PRN (02:00)
[2017-12-22] MEDS ORDERED: METOPROLOL TARTRATE 25 MG TAB PO PRN (02:00)
[2017-12-22] MEDS ORDERED: CHLORHEXIDINE GLUCONATE 2 % 1 PACK (2 CLOTHS) TOPICAL PRN (02:00)
[2017-12-22] MEDS ORDERED: HEPARIN SODIUM - SQ 10,000 UNITS/ML VIAL ONE (06:21)
[2017-12-22] MEDS ORDERED: VANCOMYCIN HCL 1000 MG VIAL ONE (06:22)
[2017-12-22] MEDS: METOPROLOL TARTRATE 100 MG TAB PO SCH ×2 (06:30→21:29)
[2017-12-22] MEDS ORDERED: METOPROLOL TARTRATE 50 MG TAB PO ONE (07:00)
[2017-12-22] MEDS: DOCUSATE SODIUM 50 MG/SENNA 8.6 MG TAB PO SCH ×2 (09:00→21:29)
[2017-12-22] MEDS: guaiFENesin E.R. 600 MG TAB PO SCH ×2 (09:00→21:29)
[2017-12-22] MEDS: PRAVASTATIN SOD 80 MG TAB PO SCH (09:00)
[2017-12-22] MEDS ORDERED: VECURONIUM BROMIDE 20 MG VIAL ONE (10:04)
--- NOTE | 2017-12-22 11:57 | RSPPFT ---
DATE OF PROCEDURE: 12/20/17 COMMENTS: Spirometry with FVC of 4.3 predicted 4.9, FEV1 of 3.5 predicted 3.9, FEV1/FVC ratio 82% predicted 79%. IMPRESSION: On the basis of the above, patient has flow values within the predicted range.
[2017-12-22] MEDS ORDERED: ATROPINE SULFATE 1 MG/10 ML SYRINGE IV ONE (12:00)
[2017-12-22] MEDS ORDERED: PROPOFOL 500 MG/50 ML BTL IV ONE (12:00)
[2017-12-22] MEDS ORDERED: ePHEDrine/NS 25 MG/5 ML SYRINGE IV ONE (12:00)
[2017-12-22] MEDS ORDERED: NITROGLYCERIN 50 MG/DEXTROSE 5% SOLN 250 ML BTL IV ONE (12:00)
[2017-12-22] MEDS ORDERED: VECURONIUM BROMIDE 20 MG VIAL IV ONE (12:00)
[2017-12-22] MEDS ORDERED: SODIUM BICARBONATE 8.4% INJ 50 MEQ/50 ML SYR IV ONE (12:00)
[2017-12-22] MEDS ORDERED: EPINEPHrine HCL (1:1000) 1 MG/ML VIAL IV ONE (12:00)
[2017-12-22] MEDS ORDERED: SODIUM CHLOR 0.9% 250 ML INJ 250 ML IV ONE (12:00)
[2017-12-22] MEDS ORDERED: HEPARIN SODIUM - SQ 10,000 UNITS/ML VIAL OTHER ONE (12:00)
[2017-12-22] MEDS ORDERED: PHENYLEPH/NS 1000 MCG/10 ML SYR IV ONE (12:00)
[2017-12-22] MEDS ORDERED: LACTATED RINGER'S 1000 ML INJ 1,000 ML IV ONE (12:00)
[2017-12-22] MEDS ORDERED: PROTAMINE SULFATE 250 MG/25 ML VIAL IV ONE (12:00)
[2017-12-22] MEDS ORDERED: MAGNESIUM SULFATE 1 GM/2 ML VIAL IV ONE (12:00)
[2017-12-22] MEDS ORDERED: DEXMEDETOMIDINE HCL 200 MCG/2 ML VIAL IV ONE (12:00)
[2017-12-22] MEDS ORDERED: LACTATED RINGER'S 1000 ML INJ 500 ML IV PRN (12:49)
[2017-12-22] MEDS ORDERED: DOBUTamine PREMIX DRIP 250 ML IV PRN (12:49)
[2017-12-22] MEDS ORDERED: ACETAMINOPHEN 325 MG TAB PO PRN (13:00)
[2017-12-22] MEDS ORDERED: SODIUM CHLORIDE 0.9% FLUSH 10 ML FLUSH IV FLUSH PRN (13:00)
[2017-12-22] MEDS ORDERED: POTASSIUM CHLORIDE 20 MEQ CONTROLLED RELEASE TAB PO PRN ×2 (13:00)
[2017-12-22] MEDS ORDERED: RESP: ALBUTEROL 2.5 MG/IPRATROPIUM 0.5 MG NEB (PRN) NEB (13:00)
[2017-12-22] MEDS ORDERED: DOPamine 800 MG/500 ML INJ 500 ML IV PRN (13:00)
[2017-12-22] MEDS ORDERED: ALBUMIN 5% INJ 250 ML IV PRN (13:00)
[2017-12-22] MEDS ORDERED: DEXMEDETOMIDINE INJ 200 MCG in SODIUM CHLORIDE 0.9% INJ 50 ML IV PRN (13:00)
[2017-12-22] MEDS ORDERED: Post-op Orders (for Pharmacy) OTHER ONE (13:00)
[2017-12-22] MEDS ORDERED: oxyCODONE/ACETAMINOPHEN 5 MG/325 MG TAB PO PRN (13:00)
[2017-12-22] MEDS ORDERED: MAGNESIUM SULFATE INJ 2 GM in SODIUM CHLORIDE 0.9% INJ 100 ML IV PRN ×4 (13:00)
[2017-12-22] MEDS ORDERED: SODIUM BICARBONATE 8.4% SOLN 50 MEQ/50 ML VIAL IV PUSH PRN ×2 (13:00)
[2017-12-22] MEDS ORDERED: MEPERIDINE HCL 25 MG/ML VIAL IV PUSH PRN (13:00)
[2017-12-22] MEDS ORDERED: METOPROLOL TARTRATE 5 MG/5 ML VIAL IV PUSH PRN (13:00)
[2017-12-22] MEDS ORDERED: POTASSIUM CHLOR 20 MEQ PREMIX 100 ML IV PRN ×2 (13:00)
[2017-12-22] MEDS ORDERED: ACETAMINOPHEN 650 MG SUPP RECTAL PRN (13:00)
[2017-12-22] MEDS ORDERED: hydrALAZINE HCL 20 MG/ML VIAL IV PUSH PRN (13:00)
[2017-12-22] MEDS ORDERED: HEPARIN SODIUM - IV 10,000 UNITS/10 ML VIAL ONE (13:00)
[2017-12-22] MEDS ORDERED: CALCIUM CHLORIDE INJ 1 GM in SODIUM CHLORIDE 0.9% INJ 100 ML IV PRN (13:00)
[2017-12-22] MEDS ORDERED: PHENYLEPHRINE INJ 40 MG in DEXTROSE 5% IN WATE 500 ML INJ 496 ML IV PRN ×2 (13:00)
[2017-12-22] MEDS ORDERED: DEXTROSE 50% IN WATER 50 ML VIAL(D50) IV PUSH PRN (13:00)
[2017-12-22] MEDS ORDERED: CALCIUM CHLORIDE 10% 1 GRAM/10 ML VIAL IV PUSH PRN (13:00)
[2017-12-22] MEDS ORDERED: NITROGLYCERIN-D5W 50 MG/250 ML 250 ML IV PRN (13:00)
[2017-12-22] MEDS ORDERED: RESP: RACEPINEPHRINE 2.25% 0.5 ML NEB NEB PRN (13:00)
--- NOTE | 2017-12-22 13:02 | PD.OP ---
cc: Reilly Pittman MD; Uziel Arriaga DO Operative Report Date of Surgery: December 22, 2017 Preoperative Diagnosis: Postoperative Diagnosis: Procedure: 1. Urgent Off-pump Coronary Artery Bypass Grafting x 4 with Left Internal Mammary Artery (DUMAS) to Left Anterior Descending (LAD), reverse saphenous vein graft to Diagonal 1 (D1), reverse saphenous vein graft to the Obtuse Marginal 1 (OM1) branch of the Left Circumflex artery, reverse saphenous vein graft to the Posterior Descending branch (RPDA) of the Right Coronary Artery 2. Left Leg Endoscopic Vein [place] 3. Intraoperative Vein Mapping. Surgeon: Reilly Pittman Enterprise Data Architect(s): Faye Huerta Operation and Findings: PREPROCEDURE DIAGNOSES 1. Severe Multi Vessel Coronary Artery Disease. 2. Acute Myocardial Infarction (NSTEMI) 3. Diabetes mellitus POSTPROCEDURE DIAGNOSES Same SURGICAL PROCEDURE 1. Urgent Off-pump Coronary Artery Bypass Grafting x 4 with Left Internal Mammary Artery (DUMAS) to Left Anterior Descending (LAD), reverse saphenous vein graft to Diagonal 1 (D1), reverse saphenous vein graft to the Obtuse Marginal 1 (OM1) branch of the Left Circumflex artery, reverse saphenous vein graft to the Posterior Descending branch (RPDA) of the Right Coronary Artery 2. Left Leg Endoscopic Vein [place] 3. Intraoperative Vein Mapping. SURGEON Reilly Pittman MD SALES OPERATIONS ASSOCIATE [place] ANESTHESIA General endotracheal SENIOR INFORMATION SECURITY ANALYST ROB Guillory MD PREPARATION ChloraPrep. COUNTS Needle, sponge, and instrument counts were correct. DRAINS Two 32-T[place] mediastinal tubes. COMPLICATIONS None. INDICATIONS FOR PROCEDURE The patient is a 62-year-old presenting with chest pain and AMI. Patient was noted to have severe multi-vessel coronary artery disease. The patient is being brought to the operating room for surgical revascularization therapy. PROCEDURE Patient was brought to the operating room and placed supine on the OR table. Following the induction of adequate general endotracheal anesthesia and placement of appropriate monitoring devices, intraoperative vein mapping was performed which revealed suitable-caliber conduit in bilateral lower extremities. The patient was then prepped and draped in standard sterile fashion. Next, 2500 units of intravenous heparin was given. The left greater saphenous vein was harvested endoscopically. This appeared to be a useable- caliber conduit. Simultaneously, a median sternotomy was performed and the left internal mammary artery dissected free off the posterior sternal table. The patient was systemically heparinized and anticoagulation monitored by serial ACT measurements. The internal mammary artery had good pulsatile flow in it and was a good-caliber conduit. The pericardium was then divided in the midline , the cradle created and targets analyzed. At this point, all anastomoses were performed in a beating-heart fashion using the [employer] stabilizing system. The left internal mammary artery was anastomosed to the distal LAD (2mm) in an end- to-side fashion using 7-0 Prolene. The LAD upto that point was severely and heavily calcified proximally. Segment of saphenous vein graft was then anastomosed to the D1 (1.5 mm) in an end-to-side fashion using 7-0 Prolene. The next segment was anastomosed to OM1 (1 mm) in an end-to-side fashion using 7-0 Prolene. The final segment was anastomosed to the RPDA (1.75 mm) in an end-to- side fashion using 7-0 Prolene. The proximal anastomoses were then constructed to the ascending aorta in a running manner using 6-0 Prolene. All anastomotic sites were inspected and appeared to be hemostatic and patent. Protamine solution was given. Strict hemostasis was assured. The closure was undertaken. 2 chest tubes were placed. The pericardium was reapproximated in the midline. The sternum was approximated using sternal wires. The muscular and fascial layer were then closed in 3 layers. The endoscopic vein harvest site was closed in 2 layers. The patient tolerated the procedure well and was transferred to CVICU in stable condition. Reilly Pittman MD December 22, 2017 13:02
[2017-12-22] MEDS ORDERED: ONDANSETRON ODT 4 MG TAB PO PRN (13:45)
[2017-12-22] MEDS: POTASSIUM CHLOR 20 MEQ PREMIX 100 ML IV PRN ×3 (13:56→21:30)
[2017-12-22] MEDS: CLEVIDIPINE INJ 50 ML IV PRN ×2 (13:58→18:22)
[2017-12-22] MEDS: INSULIN REGULAR (IV INFUSION) 100 UNITS in SODIUM CHLORIDE 0.9% INJ 99 ML IV PRN ×2 (14:00→23:07)
[2017-12-22] MEDS ORDERED: MIDAZOLAM HCL 2 MG/2 ML VIAL ONE ×2 (14:04)
[2017-12-22] MEDS ORDERED: fentaNYL CITRATE 250 MCG/5 ML AMP ONE (14:05)
--- NOTE | 2017-12-22 14:19 | RADRPT ---
EXAM DATE/TIME: 12/22/2017 14:38 [facility] COMPARISON: CHEST SINGLE AP, December 15, 2017, 21:27. INDICATIONS : S/P CABG. MEDICAL HISTORY : NC. Hypercholesterol. HTN. Kidney stones. SURGICAL HISTORY : Right knee surgery. ENCOUNTER: Subsequent ACUITY: 1 week PAIN SCORE: Non-responsive. LOCATION: Bilateral chest FINDINGS: A single view of the chest demonstrates the lungs to be symmetrically hypoinflated with some minimal airspace disease/atelectasis in the left lower lung field. Lungs are otherwise clear. Mediastinal trixie in, left thoracostomy tube, endotracheal tube and right IJ central venous catheter are all appropriat mary positioned. NG tube appears to be somewhat shallow with the side-port just above the GE junction. Median sternotomy wires are intact. Accounting for the degree of inspiration, heart size is normal. Osseous structures are intact with some degenerative spurring of the dorsal spine. CONCLUSION: 1. Postoperative changes characteristic of a reported history of CABG. Left-sided thoracostomy tube w ithout pneumothorax. 2. Minimal airspace disease in the left lower lung field is probably atelectatic. Lungs are otherwise hypoinflated but clear. 3. NG tube appears to be somewhat shallow with the side-port just above the GE junction. Life support tubes otherwise appear to be appropriately positioned. Erlin Beaulieu MD on December 22, 2017 at 14:15 Board Certified Radiologist. This report was verified electronically.
[2017-12-22] MEDS: ACETAMINOPHEN 1000 MG/100 ML 100 ML IV SCH ×2 (15:33→21:29)
[2017-12-22] MEDS: SODIUM CHLORIDE 0.9% FLUSH 10 ML FLUSH IV FLUSH SCH ×2 (15:46→21:30)
[2017-12-22] MEDS: RESP: ALBUTEROL 2.5 MG/IPRATROPIUM 0.5 MG NEB (SCH) NEB ×2 (15:57→22:00)
[2017-12-22] MEDS: KETOROLAC TROMETHAMINE 30 MG/ML (IVP) VIAL IV PUSH PRN (17:31)
--- NOTE | 2017-12-22 18:45 | HHI.PR ---
Subjective Remarks Patient says he is feeling all right. Pain is controlled. Denies any nausea or vomiting. Denies any lightheadedness or dizziness. Reports most recent bowel movement yesterday. Objective Vital Signs Date Time Temp Pulse Resp B/P (MAP) Pulse Ox O2 Delivery O2 Flow Rate FiO2 12/22/17 18:22 75 122/59 12/22/17 16:10 96 Nasal Cannula 4 12/22/17 16:10 50 12/22/17 16:00 93 Mechanical Ventilator 50 12/22/17 16:00 98.6 74 17 112/64 (80) 93 122/56 (78) 12/22/17 16:00 96 12/22/17 15:30 97.2 12/22/17 14:00 50 12/22/17 14:00 50 12/22/17 13:58 87 156/69 12/22/17 13:45 98.4 12/22/17 13:45 98.4 96 17 126/70 (88) 93 137/58 (84) 12/22/17 13:45 93 Mechanical Ventilator 50 12/22/17 13:45 50 12/22/17 13:25 96 50 12/22/17 07:00 97.8 71 16 152/88 (109) 92 12/22/17 04:30 67 12/22/17 04:00 99.2 75 18 155/87 (109) 93 12/22/17 04:00 93 Room Air 12/22/17 00:15 65 12/21/17 23:20 93 Room Air 12/21/17 23:00 99.0 65 20 149/83 (105) 95 12/21/17 20:00 98.8 68 20 138/86 (103) 95 12/21/17 20:00 95 Room Air 12/21/17 19:20 68 I/O 12/21/17 12/21/17 12/21/17 12/22/17 12/22/17 12/22/17 07:00 15:00 23:00 07:00 15:00 23:00 Intake Total 1201 ml 996.4 ml 491 ml 3800 ml 200 ml Output Total 800 ml 1125 ml 675 ml 500 ml Balance 401 ml -128.6 ml -184 ml 3300 ml 200 ml Intake Oral 960 ml 940 ml 240 ml IV Total 241 ml 56.4 ml 251 ml 100 ml 200 ml Autotransfusion 500 ml Other 3200 ml Output Urine Total 800 ml 1125 ml 675 ml 300 ml Estimated Blood Loss 200 ml # Bowel Movements 0 0 1 Result Diagram: 12/21/1748 12/21/17 0548 Objective Remarks GENERAL: Patient lying in bed. Appears comfortable. Alert and oriented 3. SKIN: Warm and dry. HEAD: Normocephalic. EYES: No scleral icterus. No injection or drainage. NECK: Supple, trachea midline. No JVD. CARDIOVASCULAR: Regular rate and rhythm without murmurs, gallops, or rubs. RESPIRATORY: Breath sounds equal bilaterally. No accessory muscle use. Postoperative incisions not examined. No bleeding noted. GASTROINTESTINAL: Abdomen soft, non-tender, nondistended. MUSCULOSKELETAL: No cyanosis, or edema. BACK: Nontender without obvious deformity. No CVA tenderness. A/P Assessment and Plan //Coronary artery disease/ Afib //Three-vessel disease by cardiac cath 12/20/[address] Arriaga //Postop CABG on 12/22/17 Consult cardiothoracic surgeon for CABG x3 Troponin level elevated, likely 2/2 demand ischemia from afib. The patient endorses palpitations. Nursing reports telemetry suggested A fib at times. Cardiology consult appreciated. Stress test: Scintigraphic findings suggest significant ischemia in the lateral, inferolateral, low anteroseptal and periapical santos; Old infarct in the low inferior wall extending into the posterior apex; Diffuse hypokinesis with paradoxical motion in the inferior base ; Dilated cardiomyopathy with reduced ejection fraction of 31%. Continue BB, ACEI, statin, ASA. S/p cardiac cath Monitor on Telemetry. Will need rhythm monitoring as an outpt. Plan for 2D echo =-12/22. Status post CABG today. Postoperative management as per surgical service. //Bronchitis Cough and mucous production improving. Continue Rocephin. D/c azithromycin. O2 and nebs as needed. Tessalon Perles as needed. encourage ambulation, IS. //R flank pain CT A/P with questionable inflammatory or edematous changes around the lower pole of the R kidney concerning for pyelo vs. recent stone passage. Check urine culture. NGTD. continue ceftriaxone (started 12/16). //Hypokalemia Potassium noted to be 2.7 on admission, provided with KCl IV and PO. Chronic problem per pt. Replete and monitor. Improved without HCTZ. //Diabetes mellitus type 2 Hyperglycemic on admission with glucosuria, normal anion gap. Hold home PO meds and place on SSI per protocol //Hypertension BP fluctuates. Holding home HCTZ for now given hypokalemia. Continue metoprolol.Lisinopril, increased to 20 mg daily. Adjust as needed. Hydralazine PRN. //DVT prophylaxis: Lovenox Discharge Planning Status post CABG on 12/22/17 Physical therapy following. May need rehab. Jace Thomason MD December 22, 2017 18:45
[2017-12-22] MEDS ORDERED: VANCOMYCIN INJ 1,750 MG in SODIUM CHLOR 0.9% 250 ML INJ 250 ML IV SCH (20:00)
[2017-12-22] MEDS ORDERED: SODIUM CHLORIDE 0.9% FLUSH 10 ML FLUSH IV FLUSH SCH (21:00)
[2017-12-22] MEDS: AMIODARONE 200 MG TAB PO SCH (21:29)
[2017-12-22] MEDS: VANCOMYCIN INJ 1,750 MG in SODIUM CHLORID 0.9% 500 ML INJ 500 ML IV SCH (21:41)
[2017-12-22] MEDS: cefTRIAXone INJ 1,000 MG in SODIUM CHLORIDE 0.9% INJ 100 ML IV SCH (23:10)
[2017-12-23] VITALS (13 sets, daily range): BP systolic 118–141; BP diastolic 65–79; PULSE 73–82; RESP 16–18; TEMP 97.6–99.9; O2SAT 90–96
[2017-12-23] MEDS: POTASSIUM CHLOR 20 MEQ PREMIX 100 ML IV PRN (01:00)
[2017-12-23] MEDS: MORPHINE SULFATE 4 MG/ML INJ IV PUSH PRN ×4 (01:42→07:12)
[2017-12-23] MEDS: ACETAMINOPHEN 1000 MG/100 ML 100 ML IV SCH ×2 (03:22→08:33)
[2017-12-23] MEDS: RESP: ALBUTEROL 2.5 MG/IPRATROPIUM 0.5 MG NEB (SCH) NEB ×5 (03:25→22:00)
[2017-12-23] MEDS: KETOROLAC TROMETHAMINE 30 MG/ML (IVP) VIAL IV PUSH PRN ×2 (04:58→20:21)
[2017-12-23] MEDS: PANTOPRAZOLE SOD 40 MG DELAYED RELEASE TAB PO SCH (05:13)
[2017-12-23] MEDS: METOPROLOL TARTRATE 100 MG TAB PO SCH ×2 (05:13→17:36)
[2017-12-23 05:23] LABS: HEMATOCRIT 36.2 % (39.0-51.0); HEMOGLOBIN 12.2 GM/DL (13.0-17.0); MEAN CELL VOLUME 92.9 FL (80.0-100.0); MEAN CORPUSCULAR HEMOGLOBIN 31.2 PG (27.0-34.0); MEAN CORPUSCULAR HGB CONC 33.6 % (32.0-36.0); MEAN PLATELET VOLUME 9.8 FL (7.0-11.0); PLATELET COUNT 228 TH/MM3 (150-450); RED CELL DISTRIBUTION WIDTH 12.8 % (11.6-17.2); WHITE BLOOD COUNT 9.1 TH/MM3 (4.0-11.0)
[2017-12-23 05:49] LABS: BICARBONATE 24.8 MEQ/L (21.0-32.0); CALCIUM 8.3 MG/DL (8.5-10.1); CREATININE 0.87 MG/DL (0.60-1.30); MAGNESIUM 2.1 MG/DL (1.5-2.5)
--- NOTE | 2017-12-23 06:02 | RADRPT ---
EXAM DATE/TIME: 12/23/2017 06:26 [facility] COMPARISON: CHEST SINGLE AP, December 22, 2017, 14:38. INDICATIONS : Shortness of breath, possible pneumothorax post CABG. status post extubation. MEDICAL HISTORY : Myocardial infarction. Hypertension Renal calculi. SURGICAL HISTORY : CABG. ENCOUNTER: Subsequent ACUITY: 1 week PAIN SCORE: 7/10 LOCATION: Bilateral chest FINDINGS: A single AP semierect view of the chest was obtained and demonstrates interval removal of the nasogas tric tube and endotracheal tube. The mediastinal chest tube and left-sided chest tube remain in place with no pneumothorax. The right internal jugular central venous line remains in place. The patient i s again noted to be status post median sternotomy and the heart size remains mildly prominent. There are no confluent infiltrates or effusions. CONCLUSION: 1. Status post extubation and removal of nasogastric tube. No confluent infiltrates are present on the current study. Neftali Melchor MD on December 23, 2017 at 5:58 Board Certified Radiologist. This report was verified electronically.
[2017-12-23] MEDS: SODIUM CHLORIDE 0.9% FLUSH 10 ML FLUSH IV FLUSH SCH ×2 (08:33→20:22)
[2017-12-23] MEDS: DOCUSATE SODIUM 50 MG/SENNA 8.6 MG TAB PO SCH ×2 (08:33→20:21)
[2017-12-23] MEDS: ACETAMINOPHEN/HYDROcodone 325 MG/5 MG TAB PO PRN ×5 (08:34→22:50)
[2017-12-23] MEDS: AMIODARONE 200 MG TAB PO SCH ×2 (08:34→20:21)
[2017-12-23] MEDS: ASPIRIN 81 MG CHEW TAB PO SCH (08:35)
[2017-12-23] MEDS: CLOPIDOGREL 75 MG TAB PO SCH (08:36)
[2017-12-23] MEDS: VANCOMYCIN INJ 1,750 MG in SODIUM CHLORID 0.9% 500 ML INJ 500 ML IV SCH ×2 (08:58→20:21)
[2017-12-23] MEDS: guaiFENesin E.R. 600 MG TAB PO SCH ×2 (09:00→20:21)
[2017-12-23] MEDS ORDERED: BISACODYL 10 MG SUPP RECTAL PRN (11:15)
[2017-12-23] MEDS ORDERED: DEXTROSE 50% IN WATER 50 ML VIAL(D50) IV PUSH PRN (11:15)
[2017-12-23] MEDS ORDERED: GLUCAGON 1 MG/ML VIAL OTHER PRN (11:15)
[2017-12-23] MEDS ORDERED: INSULIN DETEMIR 100 UNITS/ML VIAL SQ ONE (11:15)
--- NOTE | 2017-12-23 11:15 | PD.CAR.PN ---
CVT Progress Note CVT: POD #: 1 Subjective/Hospital Course: A 62-year-old male, patient of Dr. Hartley, Dr. Swift, history of some palpitations, no diagnosed arrhythmias, was recently on a cruise, on a river boat apparently, 11/28 through 12/03, became ill with some bronchitis, had a cough and congestion. He said other passengers were also ill. He presented and had a fever of 104 at home. His initial workup troponins were mildly elevated, which went from 0.12 to 0.34. Complete workup showed negative strep screen, negative urine screen. Blood cultures negative. He had recently passed a kidney stone [address] abdomen showed some right kidney pyelonephritis versus recent stone passage. They were treating him with some IV antibiotics. His white cell count went from 24,000 to 10,000. He then underwent cardiac catheterization today, which showed an ejection fraction of 60 %. The left main disease of 40%, mid distal LAD 99%, the diagonal 30. The circumflex was 95, the OM 99%, the RCA 90% and the ramus was 70%. The cardiac films have been reviewed by Dr. Reilly Pittman. His targets are very small; however, he is being evaluated for possible coronary artery bypass grafting x 3. PAST MEDICAL HISTORY: Includes hypertension, hyperlipidemia, diabetes mellitus, osteoarthritis, kidney stones. 12/23/17 c/o incisional pain. otherwise, doing well Objective: Vital Signs Date Time Temp Pulse Resp B/P (MAP) Pulse Ox O2 Delivery O2 Flow Rate FiO2 12/23/17 10:20 96 Nasal Cannula 2.00 12/23/17 08:00 93 Nasal Cannula 4.00 12/23/17 08:00 78 12/23/17 08:00 97.6 73 16 119/68 (85) 93 12/23/17 08:00 16 12/23/17 03:25 90 Nasal Cannula 4.00 12/23/17 03:00 99.0 77 16 118/65 (82) 93 Arterial Line 12/23/17 03:00 90 Nasal Cannula 12/23/17 03:00 78 12/22/17 23:00 99.5 77 16 140/73 (95) 93 107/55 (72) 12/22/17 23:00 93 Nasal Cannula 12/22/17 23:00 77 12/22/17 22:35 93 Nasal Cannula 4.00 12/22/17 21:30 80 124/51 12/22/17 20:41 98.6 12/22/17 19:00 99.1 81 18 127/74 (91) 97 114/56 (75) 12/22/17 19:00 78 12/22/17 19:00 97 Nasal Cannula 12/22/17 19:00 81 114/56 12/22/17 18:22 75 122/59 12/22/17 18:20 74 122/64 12/22/17 16:15 94 Nasal Cannula 5.00 12/22/17 16:10 96 Nasal Cannula 4 12/22/17 16:10 50 12/22/17 16:00 93 Mechanical Ventilator 50 12/22/17 16:00 98.6 74 17 112/64 (80) 93 122/56 (78) 12/22/17 16:00 96 12/22/17 15:30 97.2 12/22/17 14:00 50 12/22/17 14:00 50 12/22/17 13:58 87 156/69 12/22/17 13:45 98.4 12/22/17 13:45 98.4 96 17 126/70 (88) 93 137/58 (84) 12/22/17 13:45 93 Mechanical Ventilator 50 12/22/17 13:45 50 12/22/17 13:25 96 50 Labs: Laboratory Tests Test 12/23/17 04:40 White Blood Count 9.1 TH/MM3 (4.0-11.0) Red Blood Count 3.90 MIL/MM3 (4.50-5.90) Hemoglobin 12.2 GM/DL (13.0-17.0) Hematocrit 36.2 % (39.0-51.0) Mean Corpuscular Volume 92.9 FL (80.0-100.0) Mean Corpuscular Hemoglobin 31.2 PG (27.0-34.0) Mean Corpuscular Hemoglobin Concent 33.6 % (32.0-36.0) Red Cell Distribution Width 12.8 % (11.6-17.2) Platelet Count 228 TH/MM3 (150-450) Mean Platelet Volume 9.8 FL (7.0-11.0) Blood Urea Nitrogen 12 MG/DL (7-18) Creatinine 0.87 MG/DL (0.60-1.30) Random Glucose 132 MG/DL (74-106) Calcium Level 8.3 MG/DL (8.5-10.1) Magnesium Level 2.1 MG/DL (1.5-2.5) Sodium Level 145 MEQ/L (136-145) Potassium Level 3.8 MEQ/L (3.5-5.1) Chloride Level 112 MEQ/L (98-107) Carbon Dioxide Level 24.8 MEQ/L (21.0-32.0) Anion Gap 8 MEQ/L (5-15) Estimat Glomerular Filtration Rate 89 ML/MIN (>89) Result Diagram: 12/23/170 12/23/17 044 Imaging: Last 24 hours Impressions Chest X-Ray 12/23/17 0500 Signed Impressions: Service Date/Time: Saturday, December 23, 2017 06:26 - CONCLUSION: 1. Status post extubation and removal of nasogastric tube. No confluent infiltrates are present on the current study. Neftali Melchor MD Cardiovascular: RRR Telemetry: NSR Pulmonary: Decreased BS bilat GI/: NABS, NT Incision: dry and intact CT: ~200ml over last 12 hrs Plan: Transfer to stepdown Encourage ambulation, up to chair Advance to 1800 ADA diet Insulin/levemir for DM continue BB, statin, ASA (1) Coronary artery disease Plan: on ASA, BB statin for surgery in am (2) Diabetes mellitus Plan: on insulin sliding scale (3) Hypertension Plan: add norvasc and prn clonidine (4) Hyperlipemia Plan: add statin (5) Bronchitis Brie Carl MD December 23, 2017 11:15
[2017-12-23] MEDS: PRAVASTATIN SOD 80 MG TAB PO SCH (11:49)
[2017-12-23] MEDS: INSULIN ASPART SUPPLEMENTAL SCALE SQ SCH ×3 (14:56→21:28)
[2017-12-23] MEDS ORDERED: POTASSIUM CHLORIDE 20 MEQ CONTROLLED RELEASE TAB PO SCH (16:30)
[2017-12-23] MEDS ORDERED: FUROSEMIDE 40 MG/4 ML VIAL IV PUSH ONE (16:30)
--- NOTE | 2017-12-23 18:17 | EKG ---
Date Performed: 12/23/2017 Time Performed: 04:16:28 PTAGE: 62 years EKG: Sinus rhythm Inferior T wave changes are nonspecific Borderline ECG PREVIOUS TRACING : 12/17/2017 10.54 Since the previous tracing, no significant change noted DOCTOR: Hernandez Jara Interpretating Date/Time 12/23/2017 18:15:50
--- NOTE | 2017-12-23 19:39 | HHI.PR ---
Subjective Remarks seen this Afternoon. Reports pain continues. Denies any nausea or vomiting. Denies any shortness of breath, however increased oxygen requirement noted by nursing. Now on 10 L simple mask Objective Vital Signs Date Time Temp Pulse Resp B/P (MAP) Pulse Ox O2 Delivery O2 Flow Rate FiO2 12/23/17 16:00 94 Simple Mask 10.00 12/23/17 15:00 95 Simple Mask 10.00 12/23/17 15:00 82 12/23/17 15:00 98.6 82 16 128/77 (94) 95 12/23/17 14:00 16 12/23/17 13:32 93 HOME CPAP 4.00 12/23/17 13:30 95 Simple Mask 10.00 12/23/17 13:15 86 Nasal Cannula 1.00 12/23/17 11:00 92 Nasal Cannula 1.00 12/23/17 11:00 98.0 73 16 121/70 (87) 92 12/23/17 11:00 75 12/23/17 10:20 96 Nasal Cannula 2.00 12/23/17 09:00 16 12/23/17 08:00 93 Nasal Cannula 4.00 12/23/17 08:00 78 12/23/17 08:00 97.6 73 16 119/68 (85) 93 12/23/17 08:00 16 12/23/17 03:25 90 Nasal Cannula 4.00 12/23/17 03:00 99.0 77 16 118/65 (82) 93 Arterial Line 12/23/17 03:00 90 Nasal Cannula 12/23/17 03:00 78 12/22/17 23:00 99.5 77 16 140/73 (95) 93 107/55 (72) 12/22/17 23:00 93 Nasal Cannula 12/22/17 23:00 77 12/22/17 22:35 93 Nasal Cannula 4.00 12/22/17 21:30 80 124/51 12/22/17 20:41 98.6 I/O 12/22/17 12/22/17 12/22/17 12/23/17 12/23/17 12/23/17 07:00 15:00 23:00 07:00 15:00 23:00 Intake Total 491 ml 3800 ml 1332 ml 1245.2 ml 700 ml 400 ml Output Total 675 ml 500 ml 1255 ml 848 ml 1690 ml Balance -184 ml 3300 ml 77 ml 397.2 ml 700 ml -1290 ml Intake Oral 240 ml 240 ml 400 ml IV Total 251 ml 100 ml 1332 ml 1005.2 ml 700 ml Autotransfusion 500 ml Other 3200 ml Output Urine Total 675 ml 300 ml 1105 ml 750 ml 1470 ml Chest Tube Drainage Total 150 ml 98 ml 220 ml Estimated Blood Loss 200 ml # Bowel Movements 1 0 0 0 Result Diagram: 12/23/1743912/23/17439 Objective Remarks GENERAL: Patient lying in bed. Appears comfortable. Alert and oriented 3. SKIN: Warm and dry. HEAD: Normocephalic. EYES: No scleral icterus. No injection or drainage. NECK: Supple, trachea midline. No JVD. CARDIOVASCULAR: Regular rate and rhythm without murmurs, gallops, or rubs. RESPIRATORY: Breath sounds equal bilaterally. No accessory muscle use. Postoperative incisions not examined. No bleeding noted. GASTROINTESTINAL: Abdomen soft, non-tender, nondistended. MUSCULOSKELETAL: No cyanosis, or edema. BACK: Nontender without obvious deformity. No CVA tenderness. A/P Assessment and Plan //Coronary artery disease/ Afib //Three-vessel disease by cardiac cath 12/20/[address] Arriaga //Postop CABG on 12/22/17 Consult cardiothoracic surgeon for CABG x3 Troponin level elevated, likely 2/2 demand ischemia from afib. The patient endorses palpitations. Nursing reports telemetry suggested A fib at times. Cardiology consult appreciated. Stress test: Scintigraphic findings suggest significant ischemia in the lateral, inferolateral, low anteroseptal and periapical santos; Old infarct in the low inferior wall extending into the posterior apex; Diffuse hypokinesis with paradoxical motion in the inferior base ; Dilated cardiomyopathy with reduced ejection fraction of 31%. Continue BB, ACEI, statin, ASA. S/p cardiac cath Monitor on Telemetry. Will need rhythm monitoring as an outpt. Plan for 2D echo =-12/22. Status post CABG today. Postoperative management as per surgical service. //Hypoxemic respiratory failure -12/23 Increasing oxygen requirement to 10 L simple mask. Status post chest x- ray which is unremarkable, Lasix given by primary team. Will check ABG. Start scheduled ipratropium. //Bronchitis Cough and mucous production improving. Continue Rocephin. D/c azithromycin. O2 and nebs as needed. Tessalon Perles as needed. encourage ambulation, IS. =s/p 7 days rocephin //R flank pain CT A/P with questionable inflammatory or edematous changes around the lower pole of the R kidney concerning for pyelo vs. recent stone passage. Check urine culture. NGTD. continue ceftriaxone (started 12/16). //Hypokalemia Potassium noted to be 2.7 on admission, provided with KCl IV and PO. Chronic problem per pt. Replete and monitor. Improved without HCTZ. //Diabetes mellitus type 2 Hyperglycemic on admission with glucosuria, normal anion gap. Hold home PO meds and place on SSI per protocol //Hypertension BP fluctuates. Holding home HCTZ for now given hypokalemia. Continue metoprolol.Lisinopril, increased to 20 mg daily. Adjust as needed. Hydralazine PRN. //DVT prophylaxis: Lovenox Discharge Planning Status post CABG on 12/22/17 Physical therapy following. May need rehab. Jace Thomason MD December 23, 2017 19:39
[2017-12-23] MEDS: DOCUSATE SODIUM 100 MG CAP PO SCH (20:21)
[2017-12-23] MEDS: SENNOSIDES 8.6 MG TAB PO SCH (20:22)
[2017-12-23] MEDS ORDERED: diphenhydrAMINE HCL 50 MG CAP PO PRN (21:00)
[2017-12-23] MEDS: RESP: IPRATROPIUM 0.5 MG/2.5 ML NEB NEB SCH (21:23)
[2017-12-24] VITALS (17 sets, daily range): BP systolic 127–150; BP diastolic 64–89; PULSE 72–125; RESP 16–22; TEMP 98.3–99.7; O2SAT 93–99
[2017-12-24] MEDS: INSULIN ASPART SUPPLEMENTAL SCALE SQ SCH ×5 (02:00→21:09)
[2017-12-24] MEDS: RESP: ALBUTEROL 2.5 MG/IPRATROPIUM 0.5 MG NEB (SCH) NEB ×3 (04:00→11:36)
[2017-12-24] MEDS: RESP: IPRATROPIUM 0.5 MG/2.5 ML NEB NEB SCH ×6 (04:15→21:46)
[2017-12-24 04:40] LABS: BASOPHIL % 0.4 % (0.0-2.0); EOSINOPHIL # 0.1 TH/MM3 (0-0.4); EOSINOPHIL % 1.4 % (0.0-4.0); HEMATOCRIT 33.6 % (39.0-51.0); HEMOGLOBIN 11.3 GM/DL (13.0-17.0); LYMPH % 13.8 % (9.0-44.0); LYMPHOCYTE # 1.3 TH/MM3 (1.0-4.8); MEAN CELL VOLUME 92.2 FL (80.0-100.0); MEAN CORPUSCULAR HEMOGLOBIN 31.1 PG (27.0-34.0); MEAN CORPUSCULAR HGB CONC 33.7 % (32.0-36.0); MEAN PLATELET VOLUME 9.4 FL (7.0-11.0); MONO % 9.1 % (0.0-8.0); MONOCYTE # 0.8 TH/MM3 (0-0.9); NEUT % 75.3 % (16.0-70.0); PLATELET COUNT 218 TH/MM3 (150-450); RED BLOOD COUNT 3.64 MIL/MM3 (4.50-5.90); WHITE BLOOD COUNT 9.2 TH/MM3 (4.0-11.0)
[2017-12-24 05:02] LABS: BICARBONATE 25.9 MEQ/L (21.0-32.0); CALCIUM 8.4 MG/DL (8.5-10.1); CREATININE 0.89 MG/DL (0.60-1.30); MAGNESIUM 2.1 MG/DL (1.5-2.5)
[2017-12-24] MEDS ORDERED: AMIODARONE 150 MG/D5W 97 ML BOLUS 10 MINUTES IV ONE ×2 (05:30)
[2017-12-24] MEDS: METOPROLOL TARTRATE 100 MG TAB PO SCH ×2 (05:49→17:23)
[2017-12-24] MEDS: PANTOPRAZOLE SOD 40 MG DELAYED RELEASE TAB PO SCH (05:49)
[2017-12-24] MEDS ORDERED: MAGNESIUM SULFATE 2 GM/NS 100 ML IV ONE ×2 (06:00)
[2017-12-24] MEDS: ACETAMINOPHEN/HYDROcodone 325 MG/5 MG TAB PO PRN ×5 (06:12→21:07)
[2017-12-24] MEDS: KETOROLAC TROMETHAMINE 30 MG/ML (IVP) VIAL IV PUSH PRN (06:12)
[2017-12-24] MEDS: SODIUM CHLORIDE 0.9% FLUSH 10 ML FLUSH IV FLUSH SCH ×2 (09:03→21:13)
[2017-12-24] MEDS: PRAVASTATIN SOD 80 MG TAB PO SCH (09:03)
[2017-12-24] MEDS: POLYETHYLENE GLYCOL 17 GM PKG PO SCH (09:03)
[2017-12-24] MEDS: MAGNESIUM HYDROXIDE SUSP 30 ML CUP PO SCH (09:03)
[2017-12-24] MEDS: guaiFENesin E.R. 600 MG TAB PO SCH ×2 (09:04→21:08)
[2017-12-24] MEDS: DOCUSATE SODIUM 100 MG CAP PO SCH (09:04)
[2017-12-24] MEDS: ASPIRIN 81 MG CHEW TAB PO SCH (09:04)
[2017-12-24] MEDS: MULTIVITAMINS/MINERALS THERAPEUTIC TAB PO SCH (09:04)
[2017-12-24] MEDS: CLOPIDOGREL 75 MG TAB PO SCH (09:04)
[2017-12-24] MEDS: DOCUSATE SODIUM 50 MG/SENNA 8.6 MG TAB PO SCH ×2 (09:04→21:07)
[2017-12-24] MEDS: AMIODARONE 200 MG TAB PO SCH ×2 (09:04→21:07)
--- NOTE | 2017-12-24 09:38 | PD.CAR.PN ---
CVT Progress Note CVT: POD #: 2 Subjective/Hospital Course: A 62-year-old male, patient of Dr. Hartley, Dr. Swift, history of some palpitations, no diagnosed arrhythmias, was recently on a cruise, on a river boat apparently, 11/28 through 12/03, became ill with some bronchitis, had a cough and congestion. He said other passengers were also ill. He presented and had a fever of 104 at home. His initial workup troponins were mildly elevated, which went from 0.12 to 0.34. Complete workup showed negative strep screen, negative urine screen. Blood cultures negative. He had recently passed a kidney stone [address] abdomen showed some right kidney pyelonephritis versus recent stone passage. They were treating him with some IV antibiotics. His white cell count went from 24,000 to 10,000. He then underwent cardiac catheterization today, which showed an ejection fraction of 60 %. The left main disease of 40%, mid distal LAD 99%, the diagonal 30. The circumflex was 95, the OM 99%, the RCA 90% and the ramus was 70%. The cardiac films have been reviewed by Dr. Reilly Pittman. His targets are very small; however, he is being evaluated for possible coronary artery bypass grafting x 3. PAST MEDICAL HISTORY: Includes hypertension, hyperlipidemia, diabetes mellitus, osteoarthritis, kidney stones. 12/23/17 c/o incisional pain. otherwise, doing well 12/24/17 some SVT yesterday, now in sinus. Objective: Vital Signs Date Time Temp Pulse Resp B/P (MAP) Pulse Ox O2 Delivery O2 Flow Rate FiO2 12/24/17 09:25 99 Nasal Cannula 4.00 12/24/17 09:00 98 Nasal Cannula 5.00 12/24/17 07:00 95 Simple Mask 10.00 12/24/17 07:00 99.7 92 20 134/89 (104) 95 12/24/17 07:00 125 12/24/17 05:48 141 138/81 12/24/17 03:09 97 10.00 12/24/17 03:09 91 12/24/17 03:09 99.0 77 16 139/81 (100) 97 12/23/17 23:08 99.2 77 16 118/79 (92) 94 12/23/17 23:08 81 12/23/17 23:08 94 10.00 12/23/17 22:15 94 HOME CPAP 10.00 12/23/17 21:25 92 HOME CPAP 6.00 12/23/17 19:05 94 6.00 12/23/17 19:05 99.9 76 18 141/78 (99) 94 12/23/17 19:00 78 12/23/17 16:00 94 Simple Mask 10.00 12/23/17 15:00 95 Simple Mask 10.00 12/23/17 15:00 82 12/23/17 15:00 98.6 82 16 128/77 (94) 95 12/23/17 14:00 16 12/23/17 13:32 93 HOME CPAP 4.00 12/23/17 13:30 95 Simple Mask 10.00 12/23/17 13:15 86 Nasal Cannula 1.00 12/23/17 11:00 92 Nasal Cannula 1.00 12/23/17 11:00 98.0 73 16 121/70 (87) 92 12/23/17 11:00 75 12/23/17 10:20 96 Nasal Cannula 2.00 Labs: Laboratory Tests Test 12/24/17 04:24 White Blood Count 9.2 TH/MM3 (4.0-11.0) Red Blood Count 3.64 MIL/MM3 (4.50-5.90) Hemoglobin 11.3 GM/DL (13.0-17.0) Hematocrit 33.6 % (39.0-51.0) Mean Corpuscular Volume 92.2 FL (80.0-100.0) Mean Corpuscular Hemoglobin 31.1 PG (27.0-34.0) Mean Corpuscular Hemoglobin Concent 33.7 % (32.0-36.0) Red Cell Distribution Width 13.0 % (11.6-17.2) Platelet Count 218 TH/MM3 (150-450) Mean Platelet Volume 9.4 FL (7.0-11.0) Neutrophils (%) (Auto) 75.3 % (16.0-70.0) Lymphocytes (%) (Auto) 13.8 % (9.0-44.0) Monocytes (%) (Auto) 9.1 % (0.0-8.0) Eosinophils (%) (Auto) 1.4 % (0.0-4.0) Basophils (%) (Auto) 0.4 % (0.0-2.0) Neutrophils # (Auto) 7.0 TH/MM3 (1.8-7.7) Lymphocytes # (Auto) 1.3 TH/MM3 (1.0-4.8) Monocytes # (Auto) 0.8 TH/MM3 (0-0.9) Eosinophils # (Auto) 0.1 TH/MM3 (0-0.4) Basophils # (Auto) 0.0 TH/MM3 (0-0.2) CBC Comment DIFF FINAL Differential Comment Blood Urea Nitrogen 14 MG/DL (7-18) Creatinine 0.89 MG/DL (0.60-1.30) Random Glucose 117 MG/DL (74-106) Calcium Level 8.4 MG/DL (8.5-10.1) Magnesium Level 2.1 MG/DL (1.5-2.5) Sodium Level 144 MEQ/L (136-145) Potassium Level 3.8 MEQ/L (3.5-5.1) Chloride Level 111 MEQ/L (98-107) Carbon Dioxide Level 25.9 MEQ/L (21.0-32.0) Anion Gap 7 MEQ/L (5-15) Estimat Glomerular Filtration Rate 86 ML/MIN (>89) Result Diagram: 12/24/1742312/24/17423 Cardiovascular: RRR Telemetry: NSR Pulmonary: CTA GI/: NABS, NT Incision: dry and intact CT: 50ml/12hrs Plan: Remove chest tubes Stim BM Continue amio, BB Encourage ambulation D/C planning (1) Coronary artery disease Plan: on ASA, BB statin for surgery in am (2) Diabetes mellitus Plan: on insulin sliding scale (3) Hypertension Plan: add norvasc and prn clonidine (4) Hyperlipemia Plan: add statin (5) Bronchitis Brie Carl MD December 24, 2017 09:38
--- NOTE | 2017-12-24 10:34 | RADRPT ---
EXAM DATE/TIME: 12/24/2017 11:10 [facility] COMPARISON: CHEST SINGLE AP, December 23, 2017, 6:26. INDICATIONS : Cough. MEDICAL HISTORY : Myocardial infarction. Hypertension SURGICAL HISTORY : CABG. ENCOUNTER: Subsequent ACUITY: 2 days PAIN SCORE: 0/10 LOCATION: chest FINDINGS: AP supine portable view the chest demonstrates a central line with the tip overlying the distal SVC. Heart size is mildly enlarged diffuse cephalization of central pulmonary vasculature. Left basilar at electasis/consolidation which is improved from prior exam. Multiple intact median sternotomy wires. T here has been interval removal of the left-sided chest tube. No evidence of pneumothorax. CONCLUSION: Interval removal of a left-sided chest tube with improved lung exam. Radiographic findings are consis tent with either congestive heart failure versus volume overload.. Kenia Mcghee MD on December 24, 2017 at 10:27 Board Certified Radiologist. This report was verified electronically.
--- NOTE | 2017-12-24 11:02 | HHI.PR ---
Subjective Remarks Follow-up multi-vessel coronary stenosis/status post CABG December 24, 2017-patient seen and examined, had episode of SVT overnight however currently in normal sinus rhythm. Still requiring high oxygen. Some shortness of breath with cough production. Currently afebrile Objective Vitals Vital Signs Date Time Temp Pulse Resp B/P (MAP) Pulse Ox O2 Delivery O2 Flow Rate FiO2 12/24/17 09:25 99 Nasal Cannula 4.00 12/24/17 09:00 98 Nasal Cannula 5.00 12/24/17 07:00 95 Simple Mask 10.00 12/24/17 07:00 99.7 92 20 134/89 (104) 95 12/24/17 07:00 125 12/24/17 05:48 141 138/81 12/24/17 03:09 97 10.00 12/24/17 03:09 91 12/24/17 03:09 99.0 77 16 139/81 (100) 97 12/23/17 23:08 99.2 77 16 118/79 (92) 94 12/23/17 23:08 81 12/23/17 23:08 94 10.00 12/23/17 22:15 94 HOME CPAP 10.00 12/23/17 21:25 92 HOME CPAP 6.00 12/23/17 19:05 94 6.00 12/23/17 19:05 99.9 76 18 141/78 (99) 94 12/23/17 19:00 78 12/23/17 16:00 94 Simple Mask 10.00 12/23/17 15:00 95 Simple Mask 10.00 12/23/17 15:00 82 12/23/17 15:00 98.6 82 16 128/77 (94) 95 12/23/17 14:00 16 12/23/17 13:32 93 HOME CPAP 4.00 12/23/17 13:30 95 Simple Mask 10.00 12/23/17 13:15 86 Nasal Cannula 1.00 12/23/17 11:00 92 Nasal Cannula 1.00 12/23/17 11:00 98.0 73 16 121/70 (87) 92 12/23/17 11:00 75 I/O 12/23/17 12/23/17 12/23/17 12/24/17 12/24/17 12/24/17 07:00 15:00 23:00 07:00 15:00 23:00 Intake Total 1245.2 ml 700 ml 400 ml 1000 ml 204 ml Output Total 848 ml 1690 ml 1150 ml Balance 397.2 ml 700 ml -1290 ml -150 ml 204 ml Intake Oral 240 ml 400 ml 400 ml IV Total 1005.2 ml 700 ml 600 ml 204 ml Output Urine Total 750 ml 1470 ml 1100 ml Chest Tube Drainage Total 98 ml 220 ml 50 ml # Bowel Movements 0 0 0 Result Diagram: 12/24/17 0424 12/24/17 0424 Imaging Last Impressions Chest X-Ray 12/24/17 0000 Signed Impressions: Service Date/Time: Sunday, December 24, 2017 11:10 - CONCLUSION: Interval removal of a left-sided chest tube with improved lung exam. Radiographic findings are consistent with either congestive heart failure versus volume overload.. Kenia Mcghee MD Lower Extremity Ultrasound 12/20/17 0000 Signed Impressions: Service Date/Time: Wednesday, December 20, 2017 19:55 - CONCLUSION: Venous mapping as delineated above. James Donovan MD Carotid Artery Ultrasound 12/20/17 0000 Signed Impressions: Service Date/Time: Wednesday, December 20, 2017 18:06 - CONCLUSION: Negative carotid ultrasound examination. James Donovan MD Myocardial Perfusion Scan Nuc Med 12/18/17 0600 Signed Impressions: Service Date/Time: Monday, December 18, 2017 09:52 - CONCLUSION: 1. Scintigraphic findings suggest significant ischemia in the lateral, inferolateral, low anteroseptal and periapical santos. 2. 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 3. Diffuse hypokinesis with paradoxical motion in the inferior base. Dilated cardiomyopathy with reduced ejection fraction of 31%%. RISK CATEGORY: High (>3%% Annual Mortality Rate) Erlin Beaulieu MD Abdomen/Pelvis CT 12/15/17 2100 Signed Impressions: Service Date/Time: Friday, December 15, 2017 21:08 - CONCLUSION: 1. Questionable inflammatory or edematous changes around the lower pole right kidney. Differential diagnosis includes pyelonephritis or recent stone passage. No renal calculi or obstructive uropathy. 2. Colonic diverticulosis. Vahid Ballard MD Objective Remarks GENERAL: NAD SKIN: Warm and dry. HEAD: Normocephalic. EYES: No scleral icterus. No injection or drainage. NECK: Supple, trachea midline. No JVD or lymphadenopathy. CARDIOVASCULAR: Regular rate and rhythm without murmurs, gallops, or rubs. RESPIRATORY: Breath sounds equal bilaterally. No accessory muscle use. Chest tube in place GASTROINTESTINAL: Abdomen soft, non-tender, nondistended. MUSCULOSKELETAL: No cyanosis, or edema. BACK: Nontender without obvious deformity. No CVA tenderness. A/P Problem List: (1) Multi-vessel coronary artery stenosis ICD Code: I25.10 - Atherosclerotic heart disease of [place] coronary artery without angina pectoris (2) S/P CABG (coronary artery bypass graft) ICD Code: Z95.1 - Presence of aortocoronary bypass graft (3) Hyperlipemia ICD Code: E78.5 - Hyperlipidemia, unspecified (4) Hypertension ICD Code: I10 - Essential (primary) hypertension (5) Diabetes mellitus ICD Code: E11.9 - Type 2 diabetes mellitus without complications Assessment and Plan 62-year-old man with Coronary artery disease/ Afib Three-vessel disease by cardiac cath 12/20/[address] Arriaga Postop CABG on 12/22/17 Management per cardiothoracic surgery and continue to monitor chest tube output Check chest x-ray this a.m. December 24, 2017 Continue current treatment included amiodarone 200 mg every 12, Plavix 75 mg daily, aspirin 81 mg daily, statin, beta-yasmin Hypertension Currently on Lopressor, Norvasc Hypoxemic respiratory failure-resolved Continue with bronchodilator Bronchitis Completed course of antibiotics Tessalon Perles as needed. encourage ambulation, IS. =s/p 7 days rocephin Diabetes mellitus type 2 Continue basal insulin, insulin sliding scale fingerstick blood glucose monitoring Resume oral hypoglycemic agents Recent A1c 9.2, advise follow-up outpatient with Endocrinology //DVT prophylaxis: Leif Clifton MD December 24, 2017 11:02
[2017-12-24] MEDS: metFORMIN HCL 500 MG TAB PO SCH ×2 (13:25→17:23)
[2017-12-24] MEDS: SENNOSIDES 8.6 MG TAB PO SCH (21:07)
[2017-12-25] VITALS (29 sets, daily range): BP systolic 121–161; BP diastolic 64–84; PULSE 46–94; RESP 16–20; TEMP 97.4–99.1; O2SAT 92–97
[2017-12-25] MEDS: RESP: IPRATROPIUM 0.5 MG/2.5 ML NEB NEB SCH ×7 (00:40→23:48)
[2017-12-25] MEDS: ACETAMINOPHEN/HYDROcodone 325 MG/5 MG TAB PO PRN ×6 (00:45→23:04)
[2017-12-25] MEDS: METOPROLOL TARTRATE 100 MG TAB PO SCH ×2 (04:30→17:49)
[2017-12-25] MEDS: PANTOPRAZOLE SOD 40 MG DELAYED RELEASE TAB PO SCH (04:30)
[2017-12-25] MEDS ORDERED: DAPAGLIFLOZIN 5 MG PO SCH (09:00)
[2017-12-25] MEDS: guaiFENesin E.R. 600 MG TAB PO SCH (09:06)
[2017-12-25] MEDS: ASPIRIN 81 MG CHEW TAB PO SCH (09:06)
[2017-12-25] MEDS: POLYETHYLENE GLYCOL 17 GM PKG PO SCH (09:06)
[2017-12-25] MEDS: MULTIVITAMINS/MINERALS THERAPEUTIC TAB PO SCH (09:06)
[2017-12-25] MEDS: MAGNESIUM HYDROXIDE SUSP 30 ML CUP PO SCH (09:06)
[2017-12-25] MEDS: AMIODARONE 200 MG TAB PO SCH ×2 (09:06→20:42)
[2017-12-25] MEDS: PRAVASTATIN SOD 80 MG TAB PO SCH (09:06)
[2017-12-25] MEDS: CLOPIDOGREL 75 MG TAB PO SCH (09:06)
[2017-12-25] MEDS: metFORMIN HCL 500 MG TAB PO SCH ×3 (09:07→17:49)
[2017-12-25] MEDS: DOCUSATE SODIUM 50 MG/SENNA 8.6 MG TAB PO SCH (09:07)
[2017-12-25] MEDS: SODIUM CHLORIDE 0.9% FLUSH 10 ML FLUSH IV FLUSH SCH ×2 (09:07→20:42)
[2017-12-25] MEDS: INSULIN ASPART SUPPLEMENTAL SCALE SQ SCH ×3 (12:23→20:42)
[2017-12-25] MEDS ORDERED: FUROSEMIDE 40 MG/4 ML VIAL IV PUSH ONE ×2 (12:30→16:45)
--- NOTE | 2017-12-25 12:45 | PD.CARD.PN ---
Subjective Subjective Remarks Did well over the weekend Not great oxygenation Weight up over past few days Objective Medications Current Medications Medications (Trade) Dose Ordered Sig/Juani Route Start Time Stop Time Status Last Admin (NS Flush) 2 ml UNSCH PRN IV FLUSH 12/16/17 00:30 (NS Flush) 2 ml BID IV FLUSH 12/16/17 09:00 12/25/17 09:07 (Tylenol) 650 mg Q6H PRN PO 12/16/17 00:30 12/16/17 07:46 (Dulcolax Supp) 10 mg DAILY PRN RECTAL 12/16/17 00:30 (Lactulose Liq) 30 ml DAILY PRN PO 12/16/17 00:30 (Pravachol) 80 mg DAILY PO 12/16/17 09:00 12/25/17 09:06 (Lopressor) 100 mg Q12H PO 12/16/17 06:30 12/25/17 04:30 (Tessalon) 200 mg TID PRN PO 12/17/17 09:30 12/19/17 21:11 (Norvasc) 10 mg DAILY PO 12/21/17 11:00 12/25/17 09:07 (Aspirin Chew) 81 mg DAILY PO 12/23/17 09:00 12/25/17 09:06 (Plavix) 75 mg DAILY PO 12/23/17 09:00 12/25/17 09:06 (Protonix) 40 mg DAILY@06 PO 12/23/17 06:00 12/25/17 04:30 (Cordarone) 200 mg Q12HR PO 12/22/17 21:00 12/25/17 09:06 (Tylenol) 650 mg Q4H PRN PO 12/22/17 13:00 (Percocet 5-325 Mg) 1 tab Q3H PRN PO 12/22/17 13:00 ([place]osevelt 5-325 Mg) 2 tab Q3H PRN PO 12/22/17 13:00 12/25/17 10:04 (Zofran Odt) 4 mg Q6H PRN PO 12/22/17 13:45 (Apresoline Inj) 10 mg Q4H PRN IV PUSH 12/22/17 13:00 (Lopressor Inj) 2.5 mg Q1H PRN IV PUSH 12/22/17 13:00 (Duoneb Neb) 1 ampule Q2HR NEB PRN NEB 12/22/17 13:00 (Milk Of Magnesia Liq) 30 ml DAILY PO 12/24/17 09:00 12/25/17 09:06 (Dulcolax Supp) 10 mg UNSCH PRN RECTAL 12/23/17 11:15 (Miralax) 17 gm DAILY PO 12/24/17 09:00 12/25/17 09:06 (Senokot) 8.6 mg HS PO 12/23/17 21:00 12/24/17 21:07 (Benadryl) 50 mg HS PRN PO 12/23/17 21:00 12/23/17 22:50 (Atrovent Neb) 0.5 mg Q4HR NEB NEB 12/23/17 20:00 12/25/17 09:04 (Glucophage) 500 mg TIDPC PO 12/24/17 13:30 12/25/17 12:32 Patient Own Medication PT OWN MED: DAPAGLIFLOZIN (FARXIGA... DAILY PO 12/25/17 09:00 Future Hold (NovoLOG SUPPLEMENTAL SCALE) 1 ACHS SQ 12/24/17 17:00 12/25/17 12:23 Vital Signs / I&O Vital Signs Date Time Temp Pulse Resp B/P (MAP) Pulse Ox O2 Delivery O2 Flow Rate FiO2 12/25/17 09:04 97 Nasal Cannula 2.00 12/25/17 08:00 70 12/25/17 08:00 93 Nasal Cannula 2.00 12/25/17 08:00 98.7 70 18 142/74 (96) 93 12/25/17 06:00 68 12/25/17 05:01 93 Nasal Cannula 5.00 12/25/17 05:00 86 12/25/17 04:00 93 Nasal Cannula 5.00 12/25/17 04:00 74 12/25/17 04:00 98.3 88 18 161/77 (105) 92 12/25/17 03:00 80 12/25/17 02:00 78 12/25/17 01:00 82 12/25/17 00:30 93 HOME CPAP 5.00 12/25/17 00:00 80 12/25/17 00:00 92 Nasal Cannula 5.00 12/25/17 00:00 97.4 76 20 155/64 (94) 93 12/24/17 23:00 78 12/24/17 22:00 80 12/24/17 21:46 93 Nasal Cannula 5.00 12/24/17 21:00 78 12/24/17 20:00 98.4 78 22 150/66 (94) 93 12/24/17 20:00 78 12/24/17 20:00 93 Nasal Cannula 5.00 12/24/17 19:00 72 12/24/17 18:00 79 12/24/17 17:00 82 12/24/17 16:00 92 12/24/17 15:09 98.3 87 20 146/64 (91) 95 12/24/17 15:07 95 Nasal Cannula 4.00 12/24/17 15:00 83 12/24/17 14:00 83 I/O 12/24/17 12/24/17 12/24/17 12/25/17 12/25/17 12/25/17 07:00 15:00 23:00 07:00 15:00 23:00 Intake Total 1000 ml 804 ml 920 ml 240 ml Output Total 1150 ml 450 ml 400 ml 550 ml Balance -150 ml 354 ml 520 ml -310 ml Intake Oral 400 ml 600 ml 920 ml 240 ml IV Total 600 ml 204 ml Output Urine Total 1100 ml 400 ml 400 ml 550 ml Chest Tube Drainage Total 50 ml 50 ml # Bowel Movements 0 0 0 Physical Exam GENERAL: NAD, AAOx3 SKIN: Warm and dry. HEAD: Atraumatic. Normocephalic. EYES: Pupils equal and round. No scleral icterus. No injection or drainage. ENT: No nasal bleeding or discharge. Mucous membranes pink and moist. NECK: Trachea midline. No JVD. CARDIOVASCULAR: Regular rate and rhythm. Sternotomy clean/dry RESPIRATORY: No accessory muscle use. Decreased breath sounds bilaterally GASTROINTESTINAL: Abdomen soft, non-tender, nondistended. Hepatic and splenic margins not palpable. MUSCULOSKELETAL: Extremities without clubbing, cyanosis, or edema. No obvious deformities. Right radial no hematoma, neurovascularly intact distally NEUROLOGICAL: Awake and alert. No obvious cranial nerve deficits. Motor grossly within normal limits. Five out of 5 muscle strength in the arms and legs. Normal speech. PSYCHIATRIC: Appropriate mood and affect; insight and judgment normal. Assessment and Plan Problem List: (1) Coronary artery disease ICD Codes: I25.10 - Atherosclerotic heart disease of [place] coronary artery without angina pectoris (2) Diabetes mellitus ICD Codes: E11.9 - Type 2 diabetes mellitus without complications (3) Hypertension ICD Codes: I10 - Essential (primary) hypertension (4) Hyperlipemia ICD Codes: E78.5 - Hyperlipidemia, unspecified (5) Bronchitis ICD Codes: J40 - Bronchitis, not specified as acute or chronic Status: Acute Assessment and Plan 1) NSTEMI/MVCAD s/p CABG x4 POD #3 DUMAS to LAD SVG to D1 SVG to OM1 SVG to PDA 2) EF 55-60% by echo 3) Clinically appears to be in acute heart failure Fluid intake increased Weights up Decreased breath sounds Plan for Lasix IV x1 Uziel Arriaga DO December 25, 2017 12:45
--- NOTE | 2017-12-25 14:44 | HHI.PR ---
Subjective Remarks Reports mild substernal pain. No active shortness of breath. No coughing. Overall feels okay. Urinating more after given the Lasix. Objective Vitals Vital Signs Date Time Temp Pulse Resp B/P (MAP) Pulse Ox O2 Delivery O2 Flow Rate FiO2 12/25/17 12:00 95 Room Air 12/25/17 12:00 98.2 77 18 121/79 (93) 95 12/25/17 09:04 97 Nasal Cannula 2.00 12/25/17 08:00 70 12/25/17 08:00 93 Nasal Cannula 2.00 12/25/17 08:00 98.7 70 18 142/74 (96) 93 12/25/17 06:00 68 12/25/17 05:01 93 Nasal Cannula 5.00 12/25/17 05:00 86 12/25/17 04:00 93 Nasal Cannula 5.00 12/25/17 04:00 74 12/25/17 04:00 98.3 88 18 161/77 (105) 92 12/25/17 03:00 80 12/25/17 02:00 78 12/25/17 01:00 82 12/25/17 00:30 93 HOME CPAP 5.00 12/25/17 00:00 80 12/25/17 00:00 92 Nasal Cannula 5.00 12/25/17 00:00 97.4 76 20 155/64 (94) 93 12/24/17 23:00 78 12/24/17 22:00 80 12/24/17 21:46 93 Nasal Cannula 5.00 12/24/17 21:00 78 12/24/17 20:00 98.4 78 22 150/66 (94) 93 12/24/17 20:00 78 12/24/17 20:00 93 Nasal Cannula 5.00 12/24/17 19:00 72 12/24/17 18:00 79 12/24/17 17:00 82 12/24/17 16:00 92 12/24/17 15:09 98.3 87 20 146/64 (91) 95 12/24/17 15:07 95 Nasal Cannula 4.00 12/24/17 15:00 83 I/O 12/24/17 12/24/17 12/24/17 12/25/17 12/25/17 12/25/17 07:00 15:00 23:00 07:00 15:00 23:00 Intake Total 1000 ml 804 ml 920 ml 240 ml Output Total 1150 ml 450 ml 400 ml 550 ml Balance -150 ml 354 ml 520 ml -310 ml Intake Oral 400 ml 600 ml 920 ml 240 ml IV Total 600 ml 204 ml Output Urine Total 1100 ml 400 ml 400 ml 550 ml Chest Tube Drainage Total 50 ml 50 ml # Bowel Movements 0 0 0 Result Diagram: 12/24/1742312/24/17423 A/P Problem List: (1) Multi-vessel coronary artery stenosis ICD Code: I25.10 - Atherosclerotic heart disease of [place] coronary artery without angina pectoris (2) S/P CABG (coronary artery bypass graft) ICD Code: Z95.1 - Presence of aortocoronary bypass graft (3) Hyperlipemia ICD Code: E78.5 - Hyperlipidemia, unspecified (4) Hypertension ICD Code: I10 - Essential (primary) hypertension (5) Diabetes mellitus ICD Code: E11.9 - Type 2 diabetes mellitus without complications Assessment and Plan 62-year-old man with Coronary artery disease/ Afib Three-vessel disease by cardiac cath 12/20/[address] Arriaga Postop day #3 CABG on 12/22/17 Management per cardiothoracic surgery -chest tube removed. Continue current treatment included amiodarone 200 mg every 12, Plavix 75 mg daily, aspirin 81 mg daily, statin, beta-yasmin Hypertension Currently on Lopressor, Norvasc Hypoxemic respiratory failure-resolved Continue with bronchodilator Diabetes mellitus type 2 Continue basal insulin, insulin sliding scale fingerstick blood glucose monitoring Resume oral hypoglycemic agents Recent A1c 9.2, advise follow-up outpatient with Endocrinology Mild fluid overload with increase in weight gain - monitor I and O, Cardiology ordered lasix IV DVT prophylaxis: Lovenox Discharge Planning Anticipate home health care when medically stable. Olivia Olivas MD December 25, 2017 14:44
--- NOTE | 2017-12-25 16:40 | PD.CAR.PN ---
CVT Progress Note Subjective/Hospital Course: A 62-year-old male, patient of Dr. Hartley, Dr. Swift, history of some palpitations, no diagnosed arrhythmias, was recently on a cruise, on a river boat apparently, 11/28 through 12/03, became ill with some bronchitis, had a cough and congestion. He said other passengers were also ill. He presented and had a fever of 104 at home. His initial workup troponins were mildly elevated, which went from 0.12 to 0.34. Complete workup showed negative strep screen, negative urine screen. Blood cultures negative. He had recently passed a kidney stone [address] abdomen showed some right kidney pyelonephritis versus recent stone passage. They were treating him with some IV antibiotics. His white cell count went from 24,000 to 10,000. He then underwent cardiac catheterization today, which showed an ejection fraction of 60 %. The left main disease of 40%, mid distal LAD 99%, the diagonal 30. The circumflex was 95, the OM 99%, the RCA 90% and the ramus was 70%. The cardiac films have been reviewed by Dr. Reilly Pittman. His targets are very small; however, he is being evaluated for possible coronary artery bypass grafting x 3. PAST MEDICAL HISTORY: Includes hypertension, hyperlipidemia, diabetes mellitus, osteoarthritis, kidney stones. 12/23/17 c/o incisional pain. otherwise, doing well 12/24/17 some SVT yesterday, now in sinus. 12/25 in NSR on 2 liter nasal cannula gentle diuresis + weight OOB ambulate , no BM Objective: GENERAL: A&O x 3 SKIN: Warm and dry. prevena dressing to chest HEAD: Normocephalic. EYES: No scleral icterus. No injection or drainage. NECK: Supple, trachea midline. No JVD or lymphadenopathy. CARDIOVASCULAR: Regular rate and rhythm without murmurs, gallops, or rubs. RESPIRATORY: Breath sounds equal bilaterally. No accessory muscle use. GASTROINTESTINAL: Abdomen soft, non-tender, nondistended. MUSCULOSKELETAL: No cyanosis, or edema. BACK: Nontender without obvious deformity. No CVA tenderness. Vital Signs Date Time Temp Pulse Resp B/P (MAP) Pulse Ox O2 Delivery O2 Flow Rate FiO2 12/25/17 15:22 98.8 90 20 148/68 (94) 92 12/25/17 15:22 92 Nasal Cannula 2.00 12/25/17 15:22 90 12/25/17 14:00 88 12/25/17 13:00 88 12/25/17 12:00 95 Room Air 12/25/17 12:00 88 12/25/17 12:00 98.2 77 18 121/79 (93) 95 12/25/17 11:00 82 12/25/17 10:00 74 12/25/17 09:04 97 Nasal Cannula 2.00 12/25/17 09:00 72 12/25/17 08:00 70 12/25/17 08:00 93 Nasal Cannula 2.00 12/25/17 08:00 98.7 70 18 142/74 (96) 93 12/25/17 06:00 68 12/25/17 05:01 93 Nasal Cannula 5.00 12/25/17 05:00 86 12/25/17 04:00 93 Nasal Cannula 5.00 12/25/17 04:00 74 12/25/17 04:00 98.3 88 18 161/77 (105) 92 12/25/17 03:00 80 12/25/17 02:00 78 12/25/17 01:00 82 12/25/17 00:30 93 HOME CPAP 5.00 12/25/17 00:00 80 12/25/17 00:00 92 Nasal Cannula 5.00 12/25/17 00:00 97.4 76 20 155/64 (94) 93 12/24/17 23:00 78 12/24/17 22:00 80 12/24/17 21:46 93 Nasal Cannula 5.00 12/24/17 21:00 78 12/24/17 20:00 98.4 78 22 150/66 (94) 93 12/24/17 20:00 78 12/24/17 20:00 93 Nasal Cannula 5.00 12/24/17 19:00 72 12/24/17 18:00 79 12/24/17 17:00 82 Result Diagram: 12/24/17 0424 12/24/17 0424 (1) Coronary artery disease Plan: on ASA, BB statin (2) Diabetes mellitus Plan: on insulin sliding scale (3) Hypertension Plan: add norvasc and prn clonidine (4) Hyperlipemia Plan: add statin (5) Bronchitis Kenia Rahman December 25, 2017 16:40
[2017-12-25] MEDS ORDERED: POTASSIUM CHLORIDE 10 MEQ CONTROLLED RELEASE TAB PO ONE (16:45)
[2017-12-25] MEDS: SENNOSIDES 8.6 MG TAB PO SCH (20:42)
[2017-12-26] VITALS (11 sets, daily range): BP systolic 141–143; BP diastolic 70–76; PULSE 69–80; RESP 15–20; TEMP 98.5–99; O2SAT 94
[2017-12-26] MEDS: RESP: IPRATROPIUM 0.5 MG/2.5 ML NEB NEB SCH ×3 (03:26→11:44)
--- NOTE | 2017-12-26 04:37 | RADRPT ---
EXAM DATE/TIME: 12/26/2017 03:59 [facility] COMPARISON: CHEST SINGLE AP, December 24, 2017, 11:10. INDICATIONS : Short of breath. MEDICAL HISTORY : Myocardial infarction. Hypertension SURGICAL HISTORY : CABG. ENCOUNTER: Subsequent ACUITY: 1 week PAIN SCORE: 0/10 LOCATION: Bilateral chest FINDINGS: A single view of the chest demonstrates postoperative median sternotomy. Basilar airspace disease sim ilar to December 24. No pneumothorax. CONCLUSION: 1. Postop sternotomy. Basilar airspace disease similar to December 24. Vahid Ballard MD on December 26, 2017 at 4:33 Board Certified Radiologist. This report was verified electronically.
[2017-12-26 04:49] LABS: HEMATOCRIT 35.6 % (39.0-51.0); MEAN CELL VOLUME 93.2 FL (80.0-100.0); MEAN CORPUSCULAR HEMOGLOBIN 31.4 PG (27.0-34.0); MEAN CORPUSCULAR HGB CONC 33.7 % (32.0-36.0); MEAN PLATELET VOLUME 10.2 FL (7.0-11.0); PLATELET COUNT 253 TH/MM3 (150-450); RED BLOOD COUNT 3.83 MIL/MM3 (4.50-5.90); RED CELL DISTRIBUTION WIDTH 12.9 % (11.6-17.2); WHITE BLOOD COUNT 9.5 TH/MM3 (4.0-11.0)
[2017-12-26] MEDS: ACETAMINOPHEN/HYDROcodone 325 MG/5 MG TAB PO PRN ×2 (05:31→10:41)
[2017-12-26] MEDS: PANTOPRAZOLE SOD 40 MG DELAYED RELEASE TAB PO SCH (05:31)
[2017-12-26] MEDS: METOPROLOL TARTRATE 100 MG TAB PO SCH (05:31)
[2017-12-26] MEDS: INSULIN ASPART SUPPLEMENTAL SCALE SQ SCH ×2 (08:03→12:00)
[2017-12-26] MEDS: AMIODARONE 200 MG TAB PO SCH (08:07)
[2017-12-26] MEDS: PRAVASTATIN SOD 80 MG TAB PO SCH (08:07)
[2017-12-26] MEDS: CLOPIDOGREL 75 MG TAB PO SCH (08:07)
[2017-12-26] MEDS: ASPIRIN 81 MG CHEW TAB PO SCH (08:07)
[2017-12-26] MEDS: metFORMIN HCL 500 MG TAB PO SCH ×2 (08:08→13:30)
[2017-12-26] MEDS: MAGNESIUM HYDROXIDE SUSP 30 ML CUP PO SCH (08:08)
[2017-12-26] MEDS: POLYETHYLENE GLYCOL 17 GM PKG PO SCH (08:11)
--- NOTE | 2017-12-26 08:36 | HHI.PR ---
Subjective Remarks Pt feeling a lot better. hopefuly to be discharged soon. Denies any CP/pains/SOB /n/v Discussed w RN, pt currently off oxygen, he did desat earlier but had a breathing treatment and oxygenation improved. Objective Vitals Vital Signs Date Time Temp Pulse Resp B/P (MAP) Pulse Ox O2 Delivery O2 Flow Rate FiO2 12/26/17 07:56 94 21 12/26/17 06:00 74 12/26/17 05:00 75 12/26/17 04:00 74 12/26/17 03:25 99.0 78 15 143/70 (94) 94 12/26/17 03:25 94 5.00 12/26/17 03:00 73 12/26/17 02:00 74 12/26/17 01:00 74 12/26/17 00:00 80 12/25/17 23:36 93 Nasal Cannula 4.00 12/25/17 23:36 99.1 78 18 157/84 (108) 93 12/25/17 23:00 77 12/25/17 22:00 72 12/25/17 21:00 72 12/25/17 20:06 93 Nasal Cannula 2.00 12/25/17 20:00 82 12/25/17 19:16 93 Nasal Cannula 2.00 12/25/17 19:16 98.8 76 16 140/75 (96) 93 12/25/17 19:00 86 12/25/17 18:00 94 12/25/17 17:00 86 12/25/17 16:00 84 12/25/17 15:22 98.8 90 20 148/68 (94) 92 12/25/17 15:22 92 Nasal Cannula 2.00 12/25/17 15:22 90 12/25/17 14:00 88 12/25/17 13:00 88 12/25/17 12:00 95 Room Air 12/25/17 12:00 88 12/25/17 12:00 98.2 77 18 121/79 (93) 95 12/25/17 11:00 82 12/25/17 10:00 74 12/25/17 09:04 97 Nasal Cannula 2.00 12/25/17 09:00 72 I/O 12/25/17 12/25/17 12/25/17 12/26/17 12/26/1718 07:00 15:00 23:00 07:00 15:00 23:00 Intake Total 240 ml 1200 ml 480 ml Output Total 550 ml 1300 ml 1075 ml Balance -310 ml -100 ml -595 ml Intake Oral 240 ml 1200 ml 480 ml Output Urine Total 550 ml 1300 ml 1075 ml # Bowel Movements 0 0 0 Result Diagram: 12/26/17 0353 12/24/17 0424 Imaging Last Impressions Chest X-Ray 12/26/17 0600 Signed Impressions: Service Date/Time: Tuesday, December 26, 2017 03:59 - CONCLUSION: 1. Postop sternotomy. Basilar airspace disease similar to December 24. Vahid Ballard MD Lower Extremity Ultrasound 12/20/17 0000 Signed Impressions: Service Date/Time: Wednesday, December 20, 2017 19:55 - CONCLUSION: Venous mapping as delineated above. James Donovan MD Carotid Artery Ultrasound 12/20/17 0000 Signed Impressions: Service Date/Time: Wednesday, December 20, 2017 18:06 - CONCLUSION: Negative carotid ultrasound examination. James Donovan MD Myocardial Perfusion Scan Nuc Med 12/18/17 0600 Signed Impressions: Service Date/Time: Monday, December 18, 2017 09:52 - CONCLUSION: 1. Scintigraphic findings suggest significant ischemia in the lateral, inferolateral, low anteroseptal and periapical santos. 2. 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 3. Diffuse hypokinesis with paradoxical motion in the inferior base. Dilated cardiomyopathy with reduced ejection fraction of 31%%. RISK CATEGORY: High (>3%% Annual Mortality Rate) Erlin Beaulieu MD Abdomen/Pelvis CT 12/15/17 2100 Signed Impressions: Service Date/Time: Friday, December 15, 2017 21:08 - CONCLUSION: 1. Questionable inflammatory or edematous changes around the lower pole right kidney. Differential diagnosis includes pyelonephritis or recent stone passage. No renal calculi or obstructive uropathy. 2. Colonic diverticulosis. Vahid Ballard MD Objective Remarks GENERAL: sitting up on recliner, appears comfortable CARDIOVASCULAR: Regular rate and rhythm without murmurs RESPIRATORY: decreased breath sounds at the bases but otherwise no wheezing or crackles. GASTROINTESTINAL: Abdomen soft, non-tender, nondistended. MUSCULOSKELETAL: No edema. moves ext. A/P Problem List: (1) Multi-vessel coronary artery stenosis ICD Code: I25.10 - Atherosclerotic heart disease of [place] coronary artery without angina pectoris (2) S/P CABG (coronary artery bypass graft) ICD Code: Z95.1 - Presence of aortocoronary bypass graft (3) Hyperlipemia ICD Code: E78.5 - Hyperlipidemia, unspecified (4) Hypertension ICD Code: I10 - Essential (primary) hypertension (5) Diabetes mellitus ICD Code: E11.9 - Type 2 diabetes mellitus without complications Assessment and Plan 62-year-old man with Coronary artery disease/ Afib Three-vessel disease by cardiac cath 12/20/[address] Arriaga Postop day #4 CABG on 12/22/17 Management per cardiothoracic surgery -chest tube removed. Awaiting final recs Continue current treatment included amiodarone 200 mg every 12, Plavix 75 mg daily, aspirin 81 mg daily, statin, beta-yasmin Hypertension Currently on Lopressor, Norvasc Hypoxemic respiratory failure-resolved Continue with bronchodilator Order walk test for d/c planning Diabetes mellitus type 2 Continue basal insulin, insulin sliding scale fingerstick blood glucose monitoring on oral hypoglycemic agents Recent A1c 9.2, advise follow-up outpatient with Endocrinology Mild fluid overload with increase in weight gain - monitor I and O, Cardiology ordered lasix IV. ordered fluid restriction 1500ml/day DVT prophylaxis: Lovenox Discharge Planning walk test ordered. awaiting final recs from cards and CV sx regarding d/c plans. Hyacinth Tracey MD December 26, 2017 08:36
[2017-12-26 08:48] LABS: BICARBONATE 26.2 MEQ/L (21.0-32.0); CALCIUM 8.7 MG/DL (8.5-10.1); CREATININE 0.94 MG/DL (0.60-1.30)
[2017-12-26] MEDS ORDERED: POTASSIUM CHLORIDE 20 MEQ CONTROLLED RELEASE TAB PO ONE (10:15)
[2017-12-26] MEDS ORDERED: MAGNESIUM SULFATE 1 GM PREMIX 100 ML IV ONE (10:15)
--- NOTE | 2017-12-26 11:13 | PD.CARD.PN ---
Subjective Subjective Remarks Off oxygen Had a bowel movement Feels great Objective Medications Current Medications Medications (Trade) Dose Ordered Sig/Juani Route Start Time Stop Time Status Last Admin (NS Flush) 2 ml UNSCH PRN IV FLUSH 12/16/17 00:30 (NS Flush) 2 ml BID IV FLUSH 12/16/17 09:00 12/25/17 20:42 (Tylenol) 650 mg Q6H PRN PO 12/16/17 00:30 12/16/17 07:46 (Dulcolax Supp) 10 mg DAILY PRN RECTAL 12/16/17 00:30 (Lactulose Liq) 30 ml DAILY PRN PO 12/16/17 00:30 (Pravachol) 80 mg DAILY PO 12/16/17 09:00 12/26/17 08:07 (Lopressor) 100 mg Q12H PO 12/16/17 06:30 12/26/17 05:31 (Tessalon) 200 mg TID PRN PO 12/17/17 09:30 12/19/17 21:11 (Norvasc) 10 mg DAILY PO 12/21/17 11:00 12/26/17 08:07 (Aspirin Chew) 81 mg DAILY PO 12/23/17 09:00 12/26/17 08:07 (Plavix) 75 mg DAILY PO 12/23/17 09:00 12/26/17 08:07 (Protonix) 40 mg DAILY@06 PO 12/23/17 06:00 12/26/17 05:31 (Cordarone) 200 mg Q12HR PO 12/22/17 21:00 12/26/17 08:07 (Tylenol) 650 mg Q4H PRN PO 12/22/17 13:00 (Percocet 5-325 Mg) 1 tab Q3H PRN PO 12/22/17 13:00 ([place] 5-325 Mg) 2 tab Q3H PRN PO 12/22/17 13:00 12/26/17 10:41 (Zofran Odt) 4 mg Q6H PRN PO 12/22/17 13:45 (Apresoline Inj) 10 mg Q4H PRN IV PUSH 12/22/17 13:00 (Lopressor Inj) 2.5 mg Q1H PRN IV PUSH 12/22/17 13:00 (Duoneb Neb) 1 ampule Q2HR NEB PRN NEB 12/22/17 13:00 (Milk Of Magnesia Liq) 30 ml DAILY PO 12/24/17 09:00 12/26/17 08:08 (Dulcolax Supp) 10 mg UNSCH PRN RECTAL 12/23/17 11:15 (Miralax) 17 gm DAILY PO 12/24/17 09:00 12/26/17 08:11 (Senokot) 8.6 mg HS PO 12/23/17 21:00 12/25/17 20:42 (Benadryl) 50 mg HS PRN PO 12/23/17 21:00 12/23/17 22:50 (Atrovent Neb) 0.5 mg Q4HR NEB NEB 12/23/17 20:00 12/26/17 07:56 (Glucophage) 500 mg TIDPC PO 12/24/17 13:30 12/26/17 08:08 Patient Own Medication PT OWN MED: DAPAGLIFLOZIN (FARXIGA... DAILY PO 12/25/17 09:00 Future Hold (NovoLOG SUPPLEMENTAL SCALE) 1 ACHS SQ 12/24/17 17:00 12/26/17 08:03 Magnesium Sulfate/ Dextrose 100 ml @ 100 mls/hr ONCE ONCE IV 12/26/17 10:15 12/26/17 11:14 12/26/17 10:39 Vital Signs / I&O Vital Signs Date Time Temp Pulse Resp B/P (MAP) Pulse Ox O2 Delivery O2 Flow Rate FiO2 12/26/17 08:10 94 Nasal Cannula 2.00 12/26/17 08:10 98.5 69 20 141/76 (97) 94 12/26/17 08:10 69 12/26/17 07:56 94 21 12/26/17 06:00 74 12/26/17 05:00 75 12/26/17 04:00 74 12/26/17 03:25 99.0 78 15 143/70 (94) 94 12/26/17 03:25 94 5.00 12/26/17 03:00 73 12/26/17 02:00 74 12/26/17 01:00 74 12/26/17 00:00 80 12/25/17 23:36 93 Nasal Cannula 4.00 12/25/17 23:36 99.1 78 18 157/84 (108) 93 12/25/17 23:00 77 12/25/17 22:00 72 12/25/17 21:00 72 12/25/17 20:06 93 Nasal Cannula 2.00 12/25/17 20:00 82 12/25/17 19:16 93 Nasal Cannula 2.00 12/25/17 19:16 98.8 76 16 140/75 (96) 93 12/25/17 19:00 86 12/25/17 18:00 94 12/25/17 17:00 86 12/25/17 16:00 84 12/25/17 15:22 98.8 90 20 148/68 (94) 92 12/25/17 15:22 92 Nasal Cannula 2.00 12/25/17 15:22 90 12/25/17 14:00 88 12/25/17 13:00 88 12/25/17 12:00 95 Room Air 12/25/17 12:00 88 12/25/17 12:00 98.2 77 18 121/79 (93) 95 I/O 12/25/17 12/25/17 12/25/17 12/26/17 12/26/17 12/26/17 06:59 14:59 22:59 06:59 14:59 22:59 Intake Total 240 ml 1200 ml 480 ml Output Total 550 ml 1300 ml 1075 ml Balance -310 ml -100 ml -595 ml Intake Oral 240 ml 1200 ml 480 ml Output Urine Total 550 ml 1300 ml 1075 ml # Bowel Movements 0 0 0 Physical Exam GENERAL: NAD, AAOx3 SKIN: Warm and dry. HEAD: Atraumatic. Normocephalic. EYES: Pupils equal and round. No scleral icterus. No injection or drainage. ENT: No nasal bleeding or discharge. Mucous membranes pink and moist. NECK: Trachea midline. No JVD. CARDIOVASCULAR: Regular rate and rhythm. Sternotomy clean/dry RESPIRATORY: No accessory muscle use. CTA B/L GASTROINTESTINAL: Abdomen soft, non-tender, nondistended. Hepatic and splenic margins not palpable. MUSCULOSKELETAL: Extremities without clubbing, cyanosis, or edema. No obvious deformities. Right radial no hematoma, neurovascularly intact distally NEUROLOGICAL: Awake and alert. No obvious cranial nerve deficits. Motor grossly within normal limits. Five out of 5 muscle strength in the arms and legs. Normal speech. PSYCHIATRIC: Appropriate mood and affect; insight and judgment normal. Laboratory Laboratory Tests Test 12/26/17 03:53 White Blood Count 9.5 TH/MM3 Red Blood Count 3.83 MIL/MM3 Hemoglobin 12.0 GM/DL Hematocrit 35.6 % Mean Corpuscular Volume 93.2 FL Mean Corpuscular Hemoglobin 31.4 PG Mean Corpuscular Hemoglobin Concent 33.7 % Red Cell Distribution Width 12.9 % Platelet Count 253 TH/MM3 Mean Platelet Volume 10.2 FL Blood Urea Nitrogen 17 MG/DL Creatinine 0.94 MG/DL Random Glucose 133 MG/DL Calcium Level 8.7 MG/DL Magnesium Level 2.0 MG/DL Sodium Level 140 MEQ/L Potassium Level 3.9 MEQ/L Chloride Level 103 MEQ/L Carbon Dioxide Level 26.2 MEQ/L Anion Gap 11 MEQ/L Estimat Glomerular Filtration Rate 81 ML/MIN Imaging Last 24 hours Impressions Chest X-Ray 12/26/17 0600 Signed Impressions: Service Date/Time: Tuesday, December 26, 2017 03:59 - CONCLUSION: 1. Postop sternotomy. Basilar airspace disease similar to December 24. Vahid Ballard MD Assessment and Plan Problem List: (1) Coronary artery disease ICD Codes: I25.10 - Atherosclerotic heart disease of [place] coronary artery without angina pectoris (2) Diabetes mellitus ICD Codes: E11.9 - Type 2 diabetes mellitus without complications (3) Hypertension ICD Codes: I10 - Essential (primary) hypertension (4) Hyperlipemia ICD Codes: E78.5 - Hyperlipidemia, unspecified (5) Bronchitis ICD Codes: J40 - Bronchitis, not specified as acute or chronic Status: Acute Assessment and Plan 1) NSTEMI/MVCAD s/p CABG x4 POD #4 DUMAS to LAD SVG to D1 SVG to OM1 SVG to PDA 2) EF 55-60% by echo 3) No longer in heart failure/fluid overload state 4) Cardiovascularly stable for discharge, will await CT surgery recommendations Follow up with Dr. Hartley on discharge Uziel Arriaga DO December 26, 2017 11:13
[2017-12-26] MEDS ORDERED: AMIO200T PO (13:47)
[2017-12-26] MEDS ORDERED: SENN187 PO (13:47)
[2017-12-26] MEDS ORDERED: ASPI81 PO (13:47)
[2017-12-26] MEDS ORDERED: PLAV75TA29 PO (13:47)
[2017-12-26] MEDS ORDERED: AMLO10 PO (13:47)
[2017-12-26] MEDS ORDERED: HYDR-3516 PO (13:47)
--- NOTE | 2017-12-26 13:52 | HHI.DS ---
Discharge Summary Admission Date December 16, 2017 at 00:31 Discharge Date: December 26, 2017 Admitting Diagnosis Right pyelonephritis. Bronchitis. Hypokalemia. CAD (1) Multi-vessel coronary artery stenosis Diagnosis: Principal ICD Codes: I25.10 - Atherosclerotic heart disease of [place] coronary artery without angina pectoris (2) S/P CABG (coronary artery bypass graft) Diagnosis: Secondary ICD Codes: Z95.1 - Presence of aortocoronary bypass graft (3) Hyperlipemia Diagnosis: Principal ICD Codes: E78.5 - Hyperlipidemia, unspecified Status: Chronic (4) Hypertension Diagnosis: Principal ICD Codes: I10 - Essential (primary) hypertension Status: Chronic (5) Diabetes mellitus Diagnosis: Principal ICD Codes: E11.9 - Type 2 diabetes mellitus without complications Status: Chronic Procedures 12/22 1. Urgent Off-pump Coronary Artery Bypass Grafting x 4 with Left Internal Mammary Artery (DUMAS) to Left Anterior Descending (LAD), reverse saphenous vein graft to Diagonal 1 (D1), reverse saphenous vein graft to the Obtuse Marginal 1 (OM1) branch of the Left Circumflex artery, reverse saphenous vein graft to the Posterior Descending branch (RPDA) of the Right Coronary Artery 2. Left Leg Endoscopic Vein [place] 3. Intraoperative Vein Mapping. Brief History A 62-year-old male, patient of Dr. Hartley, Dr. Swift, history of some palpitations, no diagnosed arrhythmias, was recently on a cruise, on a river boat apparently, 11/28 through 12/03, became ill with some bronchitis, had a cough and congestion. He said other passengers were also ill. He presented and had a fever of 104 at home. His initial workup troponins were mildly elevated, which went from 0.12 to 0.34. Complete workup showed negative strep screen, negative urine screen. Blood cultures negative. He had recently passed a kidney stone [address] abdomen showed some right kidney pyelonephritis versus recent stone passage. They were treating him with some IV antibiotics. His white cell count went from 24,000 to 10,000. He then underwent cardiac catheterization today, which showed an ejection fraction of 60 %. The left main disease of 40%, mid distal LAD 99%, the diagonal 30. The circumflex was 95, the OM 99%, the RCA 90% and the ramus was 70%. The cardiac films have been reviewed by Dr. Reilly Pittman. His targets are very small; however, he is being evaluated for possible coronary artery bypass grafting x 3. PAST MEDICAL HISTORY: Includes hypertension, hyperlipidemia, diabetes mellitus, osteoarthritis, kidney stones. CBC/BMP: 12/26/17 0353 12/26/17 0353 Significant Findings Laboratory Tests Test 12/23/17 20:35 12/24/17 04:24 12/26/17 03:53 Arterial Blood pH 7.43 (7.380-7.420) Arterial Blood Partial Pressure CO2 35 mmHg (38-42) Red Blood Count 3.64 MIL/MM3 (4.50-5.90) 3.83 MIL/MM3 (4.50-5.90) Hemoglobin 11.3 GM/DL (13.0-17.0) 12.0 GM/DL (13.0-17.0) Hematocrit 33.6 % (39.0-51.0) 35.6 % (39.0-51.0) Neutrophils (%) (Auto) 75.3 % (16.0-70.0) Monocytes (%) (Auto) 9.1 % (0.0-8.0) Random Glucose 117 MG/DL (74-106) 133 MG/DL (74-106) Calcium Level 8.4 MG/DL (8.5-10.1) Chloride Level 111 MEQ/L (98-107) Estimat Glomerular Filtration Rate 86 ML/MIN (>89) 81 ML/MIN (>89) Imaging 1. Urgent Off-pump Coronary Artery Bypass Grafting x 4 with Left Internal Mammary Artery (DUMAS) to Left Anterior Descending (LAD), reverse saphenous vein graft to Diagonal 1 (D1), reverse saphenous vein graft to the Obtuse Marginal 1 (OM1) branch of the Left Circumflex artery, reverse saphenous vein graft to the Posterior Descending branch (RPDA) of the Right Coronary Artery 2. Left Leg Endoscopic Vein [place] 3. Intraoperative Vein Mapping. PE at Discharge GENERAL: A&O x 3 SKIN: Warm and dry. prevena dressing to chest , left leg incision intact and well approximated , ecchymosis left inner thigh HEAD: Normocephalic. EYES: No scleral icterus. No injection or drainage. NECK: Supple, trachea midline. No JVD or lymphadenopathy. CARDIOVASCULAR: Regular rate and rhythm without murmurs, gallops, or rubs. RESPIRATORY: Breath sounds equal bilaterally. No accessory muscle use. GASTROINTESTINAL: Abdomen soft, non-tender, nondistended. MUSCULOSKELETAL: No cyanosis, or edema. BACK: Nontender without obvious deformity. No CVA tenderness. Hospital Course 12/22 1. Urgent Off-pump Coronary Artery Bypass Grafting x 4 with Left Internal Mammary Artery (DUMAS) to Left Anterior Descending (LAD), reverse saphenous vein graft to Diagonal 1 (D1), reverse saphenous vein graft to the Obtuse Marginal 1 (OM1) branch of the Left Circumflex artery, reverse saphenous vein graft to the Posterior Descending branch (RPDA) of the Right Coronary Artery 2. Left Leg Endoscopic Vein [place] 3. Intraoperative Vein Mapping. 12/23/17 c/o incisional pain. otherwise, doing well 12/24/17 some SVT yesterday, now in sinus. 12/25 in NSR on 2 liter nasal cannula gentle diuresis + weight OOB ambulate , no BM Pt Condition on Discharge: Good Discharge Disposition: Disch w/ Home Health Serv Discharge Instructions DIET: Follow Instructions for: Heart Healthy Diet, Diabetic Diet Activities you can perform: Shower Only-No Bath Additional Activity Instructio: no lifting > 8 lbs or gallon of milk Follow up Referrals: Cardiology - 4 Weeks @ [facility] with Virgil Hartley MD PCP Follow-up - 2 Weeks with Michael Swift MD Surgical - 2 Weeks with Reilly Pittman MD New Medications: Amiodarone (Amiodarone) 200 Mg Tab 200 MG PO Q12HR for heart rhythm, #28 TAB 0 Refills Amlodipine (Norvasc) 10 Mg Tab 10 MG PO DAILY for Blood Pressure Management, #30 TAB 2 Refills Aspirin (Tgt Aspirin) 81 Mg Chw 81 MG PO DAILY for Blood Clot Prevention, #30 EA 2 Refills Clopidogrel (Plavix) 75 Mg Tab 75 MG PO DAILY for Blood Clot Prevention, #30 TAB 2 Refills Hydrocodone/Acetaminophen (Hydrocodone-Acetamin 5-325 mg) 5 Mg-325 Mg Tablet 1 TAB PO Q4HR PRN for PAIN SCALE 6 TO 10, #40 TAB 0 Refills Sennosides (Senna-Lax) 8.6 Mg Tab 8.6 MG PO HS for Constipation, #30 TAB 0 Refills Continued Medications: Dapagliflozin (Farxiga) 5 Mg Tab 5 MG PO DAILY for Blood Sugar Management, #30 TAB 0 Refills Hydrochlorothiazide (Hydrochlorothiazide) 25 Mg Tab 25 MG PO DAILY, #30 TAB 0 Refills Meclizine (Meclizine) 25 Mg Tab 25 MG PO TID PRN for VERTIGO, TAB 0 Refills Metformin (Metformin) 500 Mg Tab 500 MG PO TIDPC for Blood Sugar Management, #90 TAB 0 Refills Metoprolol Tartrate (Metoprolol Tartrate) 100 Mg Tab 100 MG PO BID, #60 TAB 0 Refills Simvastatin (Simvastatin) 40 Mg Tab 40 MG PO DAILY for Cholesterol Management, #30 TAB 0 Refills Kenia Rahman December 26, 2017 13:52
== END 2017-12-26 16:15 | disposition home health service (06) | DRG 233 ==
LOC: PHED 20:35 → PHEDA 12-16 00:31 → PHEDH 12-16 05:16 → PH3A 12-16 08:39 → HCIS 12-20 14:13 → HCVI 12-20 16:44 → HCPC 12-24 13:00
PROVIDERS: ADMIT Hospitalist; ATTEND Hospitalist
PROC: 4A023N7 Measurement of Cardiac Sampling and Pressure, Left Heart, Percutaneous Approach (ICD-10-PCS; 2017-12-20)
PROC: B2111ZZ Fluoroscopy of Multiple Coronary Arteries using Low Osmolar Contrast (ICD-10-PCS; 2017-12-20)
PROC: B2151ZZ Fluoroscopy of Left Heart using Low Osmolar Contrast (ICD-10-PCS; 2017-12-20)
PROC: 021209W Bypass Coronary Artery, Three Arteries from Aorta with Autologous Venous Tissue, Open Approach (ICD-10-PCS; 2017-12-22)
PROC: 06BQ4ZZ Excision of Left Saphenous Vein, Percutaneous Endoscopic Approach (ICD-10-PCS; 2017-12-22)
PROC: 02100Z9 Bypass Coronary Artery, One Artery from Left Internal Mammary, Open Approach (ICD-10-PCS; principal; 2017-12-22 07:46)
DX: I21.4 Non-ST elevation (NSTEMI) myocardial infarction (principal); J96.91 Respiratory failure, unspecified with hypoxia; I42.0 Dilated cardiomyopathy; I47.1 Supraventricular tachycardia; I25.10 Atherosclerotic heart disease of native coronary artery without angina pectoris; E11.65 Type 2 diabetes mellitus with hyperglycemia; E87.70 Fluid overload, unspecified; I10 Essential (primary) hypertension; E87.6 Hypokalemia; J40 Bronchitis, not specified as acute or chronic; Z87.442 Personal history of urinary calculi; F17.290 Nicotine dependence, other tobacco product, uncomplicated; E78.00 Pure hypercholesterolemia, unspecified; I25.2 Old myocardial infarction; E78.5 Hyperlipidemia, unspecified; M19.90 Unspecified osteoarthritis, unspecified site; Z79.84 Long term (current) use of oral hypoglycemic drugs; E66.9 Obesity, unspecified; Z68.33 Body mass index [BMI] 33.0-33.9, adult; Z82.49 Family history of ischemic heart disease and other diseases of the circulatory system; Z80.9 Family history of malignant neoplasm, unspecified; I48.0 Paroxysmal atrial fibrillation
CPT/HCPCS: 36600; 71045; 71046; 74176; 76937; 78452; 80048; 80053; 81001; 82805; 82948; 83036; 83605; 83735; 84132; 84484; 85025; 85027; 85610; 85730; 86850; 86900; 86901; 86920; 87040; 87070; 87081; 87086; 87205; 87493; 87641; 87804; 87880; 93005; 93017; 93306; 93458; 93880; 93970; 93998; 94002; 94010; 94150; 94618; 94640; 94664; 94667; 94668; 96361; 96365; 96366; 96375; 99152; A9502; C1768; C1893; C9248; J0131; J0171; J0282; J0456; J0461; J0696; J1644; J1650; J1815; J1817; J1885; J1940; J2250; J2270; J2370; J2440; J2720; J2785; J3010; J3370; J3475; J3480; J7030; J7040; J7050; J7120; J7644; Q0163; Q9967